=== PATIENT | female | born 1965 | race Two or more races ===

== ENCOUNTER 2020-05-03 14:51 | Emergency (ER) | payer MEDICAID, SELFPAY ==
--- NOTE | 2020-05-03 16:04 | US_ITS ---
EXAMINATION: ULTRASOUND SOFT TISSUES HEAD AND NECK CLINICAL INFORMATION: Lump left side of head just about a year with question of abscess COMPARISON: None TECHNIQUE: A linear transducer was used to examine the area of clinical concern above the left ear FINDINGS: A tiny hypoechoic cyst is seen just above the left ear measuring 2 x 6 x 5 mm in size. There is 3 mm below the skin. No solid mass is seen. This could represent a tiny sebaceous cyst. No surrounding inflammatory changes seen. IMPRESSION: Tiny cyst just above the left ear as described above.
--- NOTE | 2020-05-03 16:16 | ED_ITS ---
HPI - General Adult General Chief complaint: Skin/Abscess/Foreign Body Stated complaint: lump Time Seen by Provider: 05/03/20 16:04 Source: patient Mode of arrival: ambulatory Limitations: no limitations History of Present Illness HPI narrative: 54yoF presenting to the ED c c/o lump/pain to left scalp above the left ear. Denies trauma, fevers, headache, dizziness, changes in vision, CP/SOB, abd pain, urinarty symptoms or any other complaints or concerns at this time. Related Data Allergies Allergy/AdvReac Type Severity Reaction Status Date / Time SEAFOOD Allergy Unknown ITCHY Uncoded 04/09/20 14:58 THROAT seafood sensetivity Allergy Unknown itchy Uncoded 11/14/18 00:00 throat shellfish Allergy Unknown itchy Uncoded 01/30/20 00:00 throat Review of Systems Review of Systems: Constitutional : No Weight loss, No Fever, No Chills, No N ight Sweats, No Fatigue, No Malaise ENT/Mouth : No Hearing loss, No Ear Pain, No Nasal Congestion, No Sinus Pain, No Hoarseness, No sore throat, No Rhinorrhea, No Swallowing Difficulty Eyes: No Eye Pain, No Swelling, No Redness, No Foreign Body, No Discharge, No Vision Changes Cardiovascular : No Chest Pain, No SOB, No Dyspnea on Exertion, No Orthopnea, No Edema, No Palpitations Respiratory : No Cough, No Sputum, No Wheezing, No Smoke Exposure, No Dyspnea Gastrointestinal : No Nausea, No Vomiting, No Diarrhea, No Constipation, No abdominal Pain, No Hematochezia, No Melena Genitourinary : no irregular bleeding, No Dysuria, No Urinary Frequency, No Hematuria, No Urinary Incontinence, No Urgency, No Flank Pain, No Urinary Flow Changes, No Hesitancy Musculoskeletal : No joint pain, No Myalgias, No Joint Swelling Skin : No Skin Lesions, No rash Neuro : No Weakness, No Numbness, No Paresthesias, No Loss of Consciousness, No Dizziness, No Headache Psych : No Anxiety/Panic, No Depression, No SI/HI/AH/VH, No Social Issues, Heme/Lymph: No Bruising, No Bleeding,No Lymphadenopathy Endocrine : No Polyuria, No Polydipsia, No Temperature Intolerance [facility] Past Medical History Attestation statement: The following information was validated with the patient. Medical History Borderline hypothyroidism Diabetic acidosis, type II High cholesterol Social History Social History Alcohol intake: never Smoked in Last 30 Days: No Use of substances other than those prescribed or required for medical reasons: No Advance Directives: No Advance Directives Information Provided: No Physical Exam Vital Signs: Vital Signs: Vital Signs Temp Pulse Resp BP Pulse Ox 05/03/20 16:18 98.7 F 83 16 135/83 99 Body Mass Index 29.6 Const: General: cooperative, healthy appearing, comfortable, no acute distress, well developed, alert, awake and Physically active Nutritional Appearance: average body habitus and well nourished Orientation/consciousness: patient oriented x3 Limitations: no limitations HENMT: Head: Yes normal to inspection, Yes No palpable skull fracture present, Yes normocephalic, Yes atraumatic and Yes scalp tenderness (tender raised area to left scalp above the ear. No streaking ) Ears: hearing grossly normal bilaterally General nose exam: Normal external nose present Face and sinus: Yes normal facial exam Mouth: moist mucous membranes Eyes: General: appearance normal, both eyes and all related structures Visual Candelario: normal visual candelario by confrontation Alignment and Position: alignment normal Periorbital: periorbital findings normal Eyelids: Yes eyelids normal Conjunctivae: conjunctivae normal Sclerae: sclerae normal Pupils: Equal, round and reactive pupils present EOM: EOMs intact bilaterally Neck: Neck: Yes normal visual inspection, Yes full ROM, Yes no lymphadenopathy, Yes no meningeal signs, Yes trachea midline and Yes supple Chest: Chest palpation & inspection: normal inspection of the chest Resp: Effort & Inspection: normal respiratory effort and able to speak in complete sentences Auscultation: clear to auscultation bilaterally, no cr ackles, no rales, no rhonchi and no wheezes Cardio: Rate: regular rate Rhythm: regular rhythm Heart sounds: S1 normal heart sound present and S2 normal heart sound present Peripheral pulses: Peripheral pulses 2+ throughout GI: Inspection: Yes normal to inspection Palpation (GI): Soft to palpation, nontender and No hepatosplenomegaly present Percussion: Yes normal to percussion Auscultation: normal bowel sounds : General: Yes no CVA tenderness Back/Spine/Pelvis: Back: no CVA tenderness Cervical Spine: normal cervical lordosis and cervical ROM normal Thoracic/Lumbar Spine: thoracic and lumbar spine normal to inspection and thoraco-lumbar ROM normal Skin: General skin exam: no rashes or lesions noted, elasticity normal and turgor normal Trauma: no lacerations or abrasions Wounds: no wounds Hair: normal Nails: normal Neuro: General: patient oriented x3 and no meningeal signs Cranial nerves: Yes CN's II-XII intact bilaterally and Yes Equal, round and reactive pupils present Cognition (Neuro): normal cognition Gait exam (Neuro): Normal gait present Motor exam (neuro): 5/5 motor strength present throughout Extrem: General: Yes normal to inspection, Yes full ROM, Yes capillary refill normal, Yes no clubbing, cyanosis or edema, No no pedal edema, No no calf tenderness, Yes normal gait and No edema Right upper extremity: normal to inspection, full ROM and normal capillary refill; no edema Left upper extremity: normal to inspection, full ROM and normal capillary refill; no edema Right lower extremity: normal to inspection, full ROM and normal capillary refill; no edema Left lower extremity: normal to inspection, full ROM and normal capillary refill; no edema Psych: Appearance: grossly normal and well kempt Mental Status: mental status grossly normal Speech and movement: Normal speech and movement present and Clear speech present Affect: normal affect Attitude: cooperative Thought process: Normal thought process present Thought content: Normal thought content present Insight: Good insight present (Psych) Judgement: Good judgement present (Psych) Course Course Course Narrative: 54yoF presenting to the ED c c/o lump/pain to left scalp above the left ear. Denies trauma, fevers, headache, dizziness, changes in vision, CP/SOB, abd pain, urinarty symptoms or any other complaints or concerns at this time. - Concern for cyst vs abscess. - Plan :US of soft tissue to evaluate for possible abscess. Provide symptomatic treatment with naproxen and oxycodone and re-evaluate. Reevaluation(s) Reevaluation #1: Sign out to [facility] pending US of scalp. They just called for patient to be brought to US at this time.
[2020-05-03 16:18] VITALS: BP 135/83; PULSE 83; RESP 16; TEMP 37.1; O2SAT 99; BMI 29.6
[2020-05-03] MEDS: NaPROXEN 500 MG TABLET PO (16:58)
[2020-05-03] MEDS: oxyCODONE HCl Immed Release 5 MG TABLET PO (16:59)
== END 2020-05-03 19:40 | disposition home or self-care (01) ==
PROVIDERS: Emergency Provider Emergency Medicine Emergency Medical Services; PCP Internal Medicine
DX: L72.3 Sebaceous cyst (principal); E11.9 Type 2 diabetes mellitus without complications
CPT/HCPCS: 76536; 99284

== ENCOUNTER 2020-07-08 07:54 | Outpatient (REF) | payer MEDICAID, SELFPAY | END 2020-07-08 07:55 | disposition home or self-care (01) | LOC: HO.LAB 07:54 | PROVIDERS: PCP Internal Medicine; Visit Provider Internal Medicine | DX: Z20.828 Contact with and (suspected) exposure to other viral communicable diseases (principal) | CPT/HCPCS: C9803; U0003 ==

== ENCOUNTER 2020-10-20 09:27 | Outpatient (REF) | payer MEDICAID, SELFPAY ==
[2020-10-20 11:59] LABS: SARS COV2 PCR INHOUSE NEGATIVE (Negative)
== END 2020-10-20 09:28 | disposition home or self-care (01) ==
LOC: HO.LAB 09:27
PROVIDERS: Visit Provider Internal Medicine
DX: Z20.822 Contact with and (suspected) exposure to COVID-19 (principal)
CPT/HCPCS: C9803; U0003

== ENCOUNTER 2021-03-16 18:47 | Emergency (ER) | payer MEDICAID, SELFPAY ==
--- NOTE | ~2021-03-16 | US_ITS ---
EXAMINATION: US VENOUS ULTRASOUND WITH DOPPLER LOWER EXTREMITY, RIGHT CLINICAL INFORMATION: Leg pain. Evaluate for deep vein thrombosis. COMPARISON: None TECHNIQUE: Ultrasound of the deep veins is performed from the hip to the calf with compression sonography and color and pulse Doppler assessment. Spectral analysis with color-flow imaging is performed. FINDINGS: There is normal venous compression and respiratory variation and augmented flow. The visualized common femoral vein, superficial femoral vein, profunda femoral vein, popliteal vein, and the trifurcation region shows no evidence of deep venous thrombosis. There is no significant popliteal fossa cyst. If the patient's symptoms persist, followup ultrasound in 5 days 7 days might be of value to exclude proximal propagation from a non-visualized calf vein. US/US venous duplex LE RT IMPRESSION: No DVT demonstrated in the right lower extremity.
[2021-03-16 19:46] VITALS: BP 124/79; PULSE 89; RESP 18; TEMP 36.8; O2SAT 97; BMI 29.2
--- NOTE | 2021-03-16 20:33 | ED_ITS ---
HPI - General Adult General Chief complaint: General Medical Stated complaint: leg pain Time Seen by Provider: 03/16/21 20:28 Source: patient Mode of arrival: ambulatory Limitations: no limitations History of Present Illness HPI narrative: 55 y/o female with history of diabetes, hypothyroidism, neuropathy who presents to the ER with 2 weeks of worsening, nontraumatic right leg pain. She reports she has intermittent shooting pains down the side of her upper right leg from knee to hip. Worse with palpation, movement as well as when she lays down at night. No weakness, numbness or tingling. She feels like the pain is muscular. Denies injury. She works at a [employer] and is on her feet all day long. She reports the pain started in her right calf muscle 2 weeks ago and is now on her right upper lateral leg and radiates to her right posterior leg. No chest pain, shortness of breath. MD complaint: RLE pain Onset (ago): week(s) (2) Location: right and lower extremity Radiation: extremity Severity: moderate Severity scale (1-10): 6 Quality: aching and sharp Pain Consistency: intermittent Relieving factors: medication and rest Exacerbating factors: movement Associated symptoms: denies other symptoms Treatments prior to arrival: none Related Data Previous Rx's Medication Instructions Recorded cyclobenzaprine 10 mg tablet 10 mg PO TID PRN #12 tab 03/16/21 ibuprofen 600 mg tablet 600 mg PO Q8H PRN #14 tab 03/16/21 lidocaine 5 % topical patch 1 patch TOPICAL DAILY #15 ea 03/16/21 (Lidoderm) Allergies Allergy/AdvReac Type Severity Reaction Status Date / Time SEAFOOD Allergy Unknown ITCHY Uncoded 04/09/20 14:58 THROAT seafood sensetivity Allergy Unknown itchy Uncoded 11/14/18 00:00 throat shellfish Allergy Unknown itchy Uncoded 01/30/20 00:00 throat Review of Systems Constitutional: Constitutional: Denies chills and Denies fever(s) Eyes: Eyes: Reports no additional eye complaints ENT: Reports as per HPI Cardiovascular: Cardiovascular: Denies chest pain and Denies dyspnea Respiratory: Respiratory: Denies dyspnea Gastrointestinal: Gastrointestinal: Denies nausea and Denies vomiting Musculoskeletal: Musculoskeletal: Denies abnormal gait, Denies back pain, Denies arthralgias, Denies joint swelling, Denies numbness and Denies tingling Integumentary/Breasts: Skin/Breast: Denies swelling and Denies erythema Neurologic: Denies abnormal gait, Denies numbness, Denies Sensory deficit (Neuro), Denies tingling and Denies paresthesias Hematologic/Lymphatic: Hematologic/Lymphatic: Denies easy bleeding and Denies easy bruising [facility] Past Medical History Medical History Borderline hypothyroidism Diabetic acidosis, type II High cholesterol Social History Social History Alcohol intake: never Advance Directives: No Advance Directives Information Provided: Yes Patient : No Physical Exam Vital Signs: Vital Signs: Last Vital Signs Temp 98.2 F 03/16/21 19:46 Pulse 89 03/16/21 19:46 Resp 18 03/16/21 19:46 BP 124/79 03/16/21 19:46 Pulse Ox 97 03/16/21 19:46 Body Mass Index 29.2 Const: General: cooperative, healthy appearing, comfortable and no acute distress Nutritional Appearance: average body habitus Orientation/consciousness: patient oriented x3 Limitations: no limitations HENMT: Head: Yes normal to inspection Ears: hearing grossly normal bilaterally General nose exam: Normal external nose present and Normal nares present Face and sinus: Yes normal facial exam and Yes face symmetric Mouth: Normal oral and palatal mucosa present, lip normal and tongue normal Teeth and gingiva: dentition normal and gingiva normal Throat: Yes posterior oropharynx normal Eyes: General: appearance normal, both eyes and all related structures Neck: Neck: Yes normal visual inspection Chest: Chest palpation & inspection: normal inspection of the chest Resp: Effort & Inspection: normal respiratory effort and able to speak in comp lete sentences Cardio: Rate: regular rate Rhythm: regular rhythm Heart sounds: S1 normal heart sound present and S2 normal heart sound present : General: Yes no CVA tenderness Back/Spine/Pelvis: Back: no CVA tenderness Cervical Spine: normal cervical lordosis and cervical ROM normal Thoracic/Lumbar Spine: thoracic and lumbar s pine normal to inspection and thoraco-lumbar ROM normal Pelvis: no pain with anterior-posterior compression Skin: General skin exam: no rashes or lesions noted Neuro: General: patient oriented x3, gait normal, tone normal and moves all extremities Sensory Exam: No Sensory deficit (Neuro) Extrem: General: Yes normal to inspection Right lower extremity: normal to inspection, full ROM, normal capillary refill and hip/thigh Details: normal to inspection, tenderness Location: of the mid upper leg Location: laterally and normal ROM; Negative for no swelling and no unusual warmth; No no edema Left lower extremity: normal to inspection, full ROM and normal capillary refill; No no edema Course Course Course Narrative: 55 y/o female presenting with right leg pain x2 weeks. Given it started in her calf will get LE doppler to r/o DVT. She has soft tissue tenderness lateral upper leg along IT band. No known injury. She reports muscle cramping and shooting pains. Will check basic labs and lytes. Reevaluation(s) Reevaluation #1: LE doppler negative. Labs ok aside from glucose in 300s which she reports is her baseline. She will follow up with her PCP for this. Her leg pain is most likely MSK in nature, strain vs IT band inflammation. Will start NSAID, muscle relaxer and lidoderm. Will have her f/u with PCP. Stable for d/c home. Medical Decision Making Lab Data Result diagrams: 03/16/21 20:45 03/16/21 20:45 Labs: Lab Results 03/16/21 03/16/21 Range/Units 20:45 20:45 WBC 7.5 (4.8-10.8) X10*3/uL RBC 4.04 L (4.20-5.50) X10*6/uL Hgb 12.4 (12.0-16.0) g/dl Hct 35.9 L (37-47) % MCV 88.9 (80-98) fL MCH 30.7 (27.0-33.0) pg MCHC 34.5 (31.0-35.0) g/dl RDW 12.0 (11.0-16.0) % Plt Count 276 (160-400) X10*3/uL MPV 10.4 (9.4-12.3) fL Immature Gran % (Auto) 0.3 (0.0-0.4) % Neut % (Auto) 46.1 (45-73) % Lymph % (Auto) 45.2 H (20-40) % Independence % (Auto) 5.7 (2-11) % Eos % (Auto) 2.0 (0-4) % Baso % (Auto) 0.7 (0-2) % Lymph # (Auto) 3.4 (1.2-4.9) X10*3/uL Independence # (Auto) 0.4 (0.1-1.2) X10*3/uL Eos # (Auto) 0.2 (0.0-0.4) X10*3/uL Baso # (Auto) 0.1 (0.0-0.2) X10*3/uL Abs Immat Gran (auto) 0.02 (0.00-0.03) X10*3/uL Absolute Neuts (auto) 3.5 (2.0-8.3) X10*3/uL Absolute Nucleated RBC 0.000 (0.0-0.012) X10*3/uL Nucleated RBC % (auto) 0.0 (0.0-0.2) /100WBC Sodium 139 (135-145) mmol/L Potassium 4.1 (3.3-5.1) mmol/L Chloride 105 (96-108) mmol/L Carbon Dioxide 25 (22-29) mmol/L Anion Gap 13 (12-20) BUN 13 (9-16) mg/dL Creatinine 1.12 (0.5-1.4) mg/dL Estim Creat Clear Calc 50.8 Estimated GFR 51 Random Glucose 366 H* (60-115) mg/dL Calcium 9.2 (8.4-10.2) mg/dL Magnesium 1.9 (1.6-2.6) mg/dL Critical Care Time Critical Care Time Critical Care Time: No Discharge Plan Discharge Clinical Impression: Leg pain Qualifiers: Laterality: right Qualified Code(s): M79.604 - Pain in right leg Patient Disposition: Home, Self-Care Instructions: Leg Pain (ED), Iliotibial Band Syndrome (ED) Additional Instructions: Your lab workup showed no significant electrolyte abnormalities. Your blood sugar was elevated in the 300's. Your ultrasound was negative for blood clot. Your pain may be due to inflammation and irritation of your IT band. Recommend gentle massage. Use ice several times per day for 20 minutes at a time for the next 48 hours and then change to heat. Take medications as prescribed to help with pain and discomfort. Follow up with your Primary Care Doctor this week. You may benefit from physical therapy. If your pain worsens, if you develop new numbness, tingling, weakness, or any other concerning symptoms come back to the ER right away for evaluation. Prescriptions: New cyclobenzaprine 10 mg tablet 10 mg PO TID PRN (Reason: muscle spasm) Qty: 12 RF: 0 lidocaine [Lidoderm] 5 % adhesive patch,medicated 1 patch topical DAILY Qty: 15 RF: 0 ibuprofen 600 mg tablet 600 mg PO Q8H PRN (Reason: pain) Qty: 14 RF: 0 Stand Alone Forms: Work/School Release Interventions: ED Discharge Assessment Last Done: 03/16/21 22:44 Discharge Date/Time: 03/16/21 22:56
[2021-03-16 20:51] LABS: MANUAL DIFF FLAG NO
[2021-03-16 20:53] LABS: Basophils Absolute Auto 0.1 X10*3/uL (0.0-0.2); Basophils Percent Auto 0.7 % (0-2); Eosinophils Absolute Auto 0.2 X10*3/uL (0.0-0.4); Hematocrit 35.9 % (37-47); Hemoglobin 12.4 g/dl (12.0-16.0); Imm Gran Abs Auto 0.02 X10*3/uL (0.00-0.03); Imm Gran Pct Auto 0.3 % (0.0-0.4); Lymphocytes Absolute Auto 3.4 X10*3/uL (1.2-4.9); Lymphocytes Percent Auto 45.2 % (20-40); Mean Corpuscular HGB Conc 34.5 g/dl (31.0-35.0); Mean Corpuscular Hemoglobin 30.7 pg (27.0-33.0); Mean Corpuscular Volume 88.9 fL (80-98); Mean Platelet Volume 10.4 fL (9.4-12.3); Monocytes Absolute Auto 0.4 X10*3/uL (0.1-1.2); Monocytes Percent Auto 5.7 % (2-11); Neutrophils Absolute Auto 3.5 X10*3/uL (2.0-8.3); Neutrophils Percent Auto 46.1 % (45-73); Platelet Count 276 X10*3/uL (160-400); Red Blood Count 4.04 X10*6/uL (4.20-5.50); White Blood Count 7.5 X10*3/uL (4.8-10.8)
[2021-03-16 21:24] LABS: Anion Gap 13 (12-20); Blood Urea Nitrogen 13 mg/dL (9-16); Calcium 9.2 mg/dL (8.4-10.2); Carbon Dioxide 25 mmol/L (22-29); Chloride 105 mmol/L (96-108); Creatinine Clr Calc Pharmacy 50.8; Estimated Glomerular Filt Rate 51; Glucose Random 366 mg/dL (60-115); Magnesium 1.9 mg/dL (1.6-2.6); Potassium 4.1 mmol/L (3.3-5.1); Sodium 139 mmol/L (135-145)
== END 2021-03-16 22:56 | disposition home or self-care (01) ==
PROVIDERS: Physician Assistant; Emergency Provider Emergency Medicine; PCP Internal Medicine
DX: M79.604 Pain in right leg (principal); E11.9 Type 2 diabetes mellitus without complications
CPT/HCPCS: 36415; 80048; 83735; 85025; 93971; 99283; 99284

== ENCOUNTER 2021-04-02 12:40 | Emergency (ER) | payer MEDICAID, SELFPAY ==
[2021-04-02 13:03] VITALS: BP 153/81; PULSE 96; RESP 16; TEMP 36.9; O2SAT 98; BMI 29.2
--- NOTE | 2021-04-02 13:44 | ED.URI ---
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 No fevers, no vomiting or diarrhea, no headache. No cough. Patient is vaccinated for COVID. She is concerned because her sister who she lives with is immunocompromised. MD elicited complaint: sore throat, nasal congestion and sinus pain Onset (ago): day(s) (1) Consistency: constant Severity: mild Able to tolerate fluids by mouth: Yes Exacerbating factors: nothing Relieving factors: OTC cold medicine Associated symptoms: chills, myalgias, nasal congestion and sore throat (scratchy throat) Treatments prior to arrival: none Related Data Previous Rx's Medication Instructions Recorded cyclobenzaprine 10 mg tablet 10 mg PO TID PRN #12 tab 03/16/21 ibuprofen 600 mg tablet 600 mg PO Q8H PRN #14 tab 03/16/21 lidocaine 5 % topical patch 1 patch TOPICAL DAILY #15 ea 03/16/21 (Lidoderm) Allergies Allergy/AdvReac Type Severity Reaction Status Date / Time SEAFOOD Allergy Unknown ITCHY Uncoded 04/09/20 14:58 THROAT seafood sensetivity Allergy Unknown itchy Uncoded 11/14/18 00:00 throat shellfish Allergy Unknown itchy Uncoded 01/30/20 00:00 throat Review of Systems Constitutional: Constitutional: Reports body ache(s), Reports chills, Reports fatigue, Denies fever(s), Denies headache(s) and Reports malaise Eyes: Eyes: Denies blurry vision, Denies diplopia and Denies eye pain ENT: Denies otalgia, Denies headache(s), Reports nasal congestion, Reports sinus pain, Reports sinus pressure and Reports sore throat Comments: Scratchy throat, can not tolerate fluids, throat is not sore more itchy Cardiovascular: Cardiovascular: Denies chest pain, Denies lightheadedness and Denies dyspnea Respiratory: Respiratory: Denies chest congestion, Denies cough and Denies dyspnea Gastrointestinal: Gastrointestinal: Denies abdominal pain, Denies diarrhea, Denies nausea and Denies vomiting Musculoskeletal: Musculoskeletal: Reports myalgias Integumentary/Breasts: Skin/Breast: Denies erythema and Denies rash Neurologic: Denies headache(s) and Denies focal weakness Endocrine: Endocrine: Reports fatigue PMFSH Past Medical History Medical History Borderline hypothyroidism Diabetic acidosis, type II High cholesterol Social History Social History Alcohol intake: never Advance Directives: No Advance Directives Information Provided: No Physical Exam Vital Signs: Vital Signs: Last Vital Signs Temp 98.4 F 04/02/21 13:03 Pulse 96 04/02/21 13:03 Resp 16 04/02/21 13:03 BP 153/81 H 04/02/21 13:03 Pulse Ox 98 04/02/21 13:03 Body Mass Index 29.2 Const: General: cooperative, healthy appearing, comfortable, no acute distress, well developed, alert and awake Nutritional Appearance: average body habitus Orientation/consciousness: patient oriented x3 Limitations: no limitations HENMT: Head: Yes normal to inspection, Yes normocephalic and Yes atraumatic Ears: hearing grossly normal bilaterally, external ears normal, TM's normal bilaterally and EAC's normal General nose exam: Normal external nose present Face and sinus: Yes normal facial exam and Yes sinuses nontender Mouth: Normal oral and palatal mucosa present and moist mucous membranes Throat: Yes postnasal drainage Eyes: Pupils: Equal, round and reactive pupils present EOM: EOMs intact bilaterally Neck: Neck: Yes full ROM, Yes no lymphadenopathy, Yes no meningeal signs, Yes trachea midline and Yes supple Resp: Effort & Inspection: normal respiratory effort and able to speak in complete sentences Auscultation: clear to auscultation bilaterally, no crackles, no rales, no rhonchi and no wheezes Cardio: Rate: regular rate Rhythm: regular rhythm Heart sounds: S1 normal heart sound present and S2 normal heart sound present Skin: General skin exam: no rashes or lesions noted Neuro: General: patient oriented x3 and no meningeal signs Cranial nerves: Yes Equal, round and reactive pupils present Extrem: General: Yes normal to inspection and Yes full ROM Course Course Course Narrative: 55-year-old female with 1 day fatigue, body aches, chills, scratchy throat, and sinus pain and pressure. Patient is concerned that she may have COVID despite being vaccinated. She lives with her sister who is immunocompromised. On exam, patient has stable vitals, oropharynx is benign except for postnasal drip, patient's lungs are clear to auscultation bilaterally. Will test for COVID, give Toradol for body aches, if COVID is negative, will counseled patient to stay out of work for 3 days until she is feeling better. MDM - URI/Sore Throat Lab Data Labs: Lab Results 04/02/21 Range/Units 13:51 COVID-19 ([facility]) Negative (Negative) COVID-19 Clin Com See Note Discharge Plan Discharge Clinical Impression: Upper respiratory infection Qualifiers: URI type: unspecified viral URI Qualified Code(s): J06.9 - Acute upper respiratory infection, unspecified Patient Disposition: Home, Self-Care Instructions: Upper Respiratory Infection (ED) Additional Instructions: Please go home, rest, drink plenty of fluids, you may gargle with salt water. Place 1 tsp of salt in a couple of warm water and gargle 4 times a day, this may help with a scratchy throat. Alternate Tylenol and ibuprofen. I would like you to stay out of work for few days so you can rest. Prescriptions: No Action cyclobenzaprine 10 mg tablet 10 mg PO TID PRN (Reason: muscle spasm) Qty: 12 RF: 0 lidocaine [Lidoderm] 5 % adhesive patch,medicated 1 patch topical DAILY Qty: 15 RF: 0 ibuprofen 600 mg tablet 600 mg PO Q8H PRN (Reason: pain) Qty: 14 RF: 0 Stand Alone Forms: Work/School Release
[2021-04-02] MEDS: Ketorolac Tromethamine 15 MG/ML VIAL 30 MG IM (14:06)
[2021-04-02 14:12] LABS: COVID-19 Test Negative (Negative); IDNOW Serial# 08D9AD1C
== END 2021-04-02 14:26 | disposition home or self-care (01) ==
PROVIDERS: Physician Assistant; Emergency Provider Emergency Medicine; PCP Internal Medicine
DX: J06.9 Acute upper respiratory infection, unspecified (principal); M79.10 Myalgia, unspecified site; R09.81 Nasal congestion; Z20.822 Contact with and (suspected) exposure to COVID-19; Z79.899 Other long term (current) drug therapy
CPT/HCPCS: 36415; 87635; 96372; 99284; J1885

== ENCOUNTER 2021-04-20 08:30 | Outpatient (REF) | payer MEDICAID, SELFPAY ==
[2021-04-20 09:03] LABS: Basophils Percent Auto 0.6 % (0-2); Eosinophils Absolute Auto 0.1 X10*3/uL (0.0-0.4); Eosinophils Percent Auto 1.9 % (0-4); Hematocrit 39.2 % (37-47); Hemoglobin 13.5 g/dl (12.0-16.0); Imm Gran Abs Auto 0.03 X10*3/uL (0.00-0.03); Imm Gran Pct Auto 0.4 % (0.0-0.4); Lymphocytes Absolute Auto 2.9 X10*3/uL (1.2-4.9); Lymphocytes Percent Auto 42.5 % (20-40); MANUAL DIFF FLAG NO; Mean Corpuscular HGB Conc 34.4 g/dl (31.0-35.0); Mean Corpuscular Hemoglobin 30.6 pg (27.0-33.0); Mean Corpuscular Volume 88.9 fL (80-98); Mean Platelet Volume 10.2 fL (9.4-12.3); Monocytes Absolute Auto 0.4 X10*3/uL (0.1-1.2); Monocytes Percent Auto 6.5 % (2-11); Neutrophils Absolute Auto 3.3 X10*3/uL (2.0-8.3); Neutrophils Percent Auto 48.1 % (45-73); Platelet Count 309 X10*3/uL (160-400); Red Blood Count 4.41 X10*6/uL (4.20-5.50); White Blood Count 6.8 X10*3/uL (4.8-10.8)
[2021-04-20 09:33] LABS: Alanine Aminotransferase 34 U/L (0-31); Albumin Level 3.9 g/dL (3.5-5.0); Alkaline Phosphatase 85 U/L (39-117); Anion Gap 10 (12-20); Aspartate Amino Transferase 34 U/L (5-31); Bilirubin Total 0.8 mg/dL (0.0-1.0); Blood Urea Nitrogen 12 mg/dL (9-16); C Reactive Protein 0.69 mg/dL (< or = 0.50); Calcium 9.6 mg/dL (8.4-10.2); Carbon Dioxide 28 mmol/L (22-29); Chloride 105 mmol/L (96-108); Cholesterol 250 mg/dL; Estimated Glomerular Filt Rate > 60; Glucose Fasting 242 mg/dL (60-99); HDL Cholesterol 38 mg/dL; LDL Cholesterol Calculated 168 mg/dl; Potassium 4.4 mmol/L (3.3-5.1); Sodium 139 mmol/L (135-145); Total Protein 7.1 g/dL (6.5-8.0); Triglycerides 221 mg/dL
[2021-04-20 09:53] LABS: Estimated Average Glucose 258 mg/dL; Hemoglobin A1c % 10.6 %
[2021-04-20 09:54] LABS: Free T4 (Free Thyroxine) 1.21 ng/dL (0.71-1.85)
[2021-04-20 10:28] LABS: Creatinine Urine 113.89 mg/dL; Microalbum/Creatinine Ratio Ur 5.2 ug/mg cr
== END 2021-04-20 08:31 | disposition home or self-care (01) ==
LOC: HO.LAB 08:30
PROVIDERS: PCP Internal Medicine; Visit Provider Internal Medicine
DX: E78.00 Pure hypercholesterolemia, unspecified (principal); E11.9 Type 2 diabetes mellitus without complications; R53.83 Other fatigue; E03.9 Hypothyroidism, unspecified
CPT/HCPCS: 36415; 80053; 80061; 82043; 82306; 83036; 84439; 84443; 85025; 86140

== ENCOUNTER 2021-05-11 13:05 | Outpatient (REF) | payer MEDICAID, SELFPAY ==
--- NOTE | ~2021-05-11 | MM_ITS ---
EXAMINATION: MM SCREENING DIGITAL BREAST TOMOSYNTHESIS, BILATERAL CLINICAL INFORMATION: Screening. Asymptomatic. The lifetime risk of breast cancer based on the Tyrer-Cuzick Model is 23%. COMPARISON: Mammography: 10/19/2018, 01/16/2017, 11/16/2015 TECHNIQUE: Digital breast tomosynthesis is performed in both the craniocaudal and mediolateral oblique views along with computer-aided detection (CAD). Synthesized 2D images are generated from the tomosynthesis. FINDINGS: There are scattered areas of fibroglandular density (ACR BI-RADS breast composition Category b). There are no significant masses, abnormal calcifications, or other abnormalities. Parenchymal pattern is similar to prior studies. No developing density. The axilla and skin contours are unremarkable. No significant changes. MM/MM tomosynthesis screening BI IMPRESSION: No mammographic evidence of malignancy. ASSESSMENT: BI-RADS 2: Benign RECOMMENDATION: Routine annual mammography screening. This patient's information was entered into a reminder system with a target due date for their next mammogram.
--- NOTE | ~2021-05-11 | MM_ITS ---
EXAMINATION: BONE DENSITOMETRY CLINICAL INDICATION: Encounter for screening for osteoporosis. COMPARISON: None (current study represents initial baseline exam). TECHNIQUE: Using a [employer] DXA System (software version: 13.1) manufactured by [employer], dual-energy x-ray absorptiometry was performed of the lumbar spine and left hip. The images are of good technical quality. Summary results are attached. FINDINGS: AP SPINE L1-L3 (excluding L4): The data of L1-L4 has been changed to exclude the L4 vertebral body, because degenerative changes at this level may cause overestimation of lumbar spine density. BMD 1.142 g/cm2, Z-score 0.5, T-score -0.2, normal. LEFT FEMUR, NECK: BMD 0.937 g/cm2, Z-score 0.2, T-score -0.7, normal. LEFT FEMUR, TOTAL: BMD 1.069 g/cm2, Z-score 1.1, T-score 0.5, normal. IDENTIFIED RISK FACTORS: Menopause. HISTORY OF FRACTURE: None listed. MEDICATIONS: None listed. MM/XR DEXA axial skeleton IMPRESSION: 1. DIAGNOSIS: Normal bone density based on the lowest T-score value of -0.7 in the femoral neck applying World Health Organization criteria. 2. 10-YEAR FRACTURE RISK PREDICTION, FRAX: According to the guidelines, FRAX calculation should only be performed on patients in the osteopenia bone density category. Therefore, FRAX was not performed on this patient. 3. Treatment Recommendations: NOF guidelines recommend consideration for treatment in postmenopausal women and men age 50 and older presenting with the following: -A hip or vertebral (clinical or morphometric) fracture. -T-score less than or equal to -2.5 at the femoral neck or spine after appropriate evaluation to exclude secondary causes. -Low bone mass at the hip or spine and a 10-year fracture probability by FRAX of greater than or equal to 3% for hip fracture or greater than or equal to 20% for major osteoporotic fracture based on the [place] adapted WHO algorithm. 4. Other Recommendations: All treatment decisions require clinical judgment and consideration of individual patient factors, including patient preferences, comorbidities, previous drug use, risk factors not captured in the FRAX model (e.g. frailty, falls, vitamin D deficiency, increased bone turnover, interval significant decline in bone density) and possible under or overestimation of fracture risk by FRAX. FUTURE SCAN RECOMMENDATION: People with diagnosed cases of osteoporosis or at high risk for fracture should have regular bone mineral density tests. For patients eligible for Medicare, routine testing is allowed once every 2 years. The testing frequency can be increased to one year for patients who have rapidly progressing disease, those who are receiving or discontinuing medical therapy to restore bone mass, or have additional risk factors.
== END 2021-05-11 13:06 | disposition home or self-care (01) ==
LOC: HO.MAMMO 13:05
PROVIDERS: PCP Internal Medicine; Visit Provider Internal Medicine
DX: Z12.31 Encounter for screening mammogram for malignant neoplasm of breast (principal); Z13.820 Encounter for screening for osteoporosis; Z78.0 Asymptomatic menopausal state
CPT/HCPCS: 77063; 77067; 77080

== ENCOUNTER 2021-07-09 15:06 | Outpatient (REF) | payer MEDICAID, SELFPAY ==
--- NOTE | ~2021-07-09 | XR_ITS ---
EXAMINATION: XR LUMBOSACRAL SPINE CLINICAL INFORMATION: Right leg and back pain COMPARISON: None TECHNIQUE: Three views of the lumbosacral spine. FINDINGS: Bone alignment is normal. No fracture or dislocation is seen. There is degenerative disc disease at L4-L5 and L5-S1. There is lower lumbar spine facet arthritis. There is atherosclerotic disease. XR/XR lumbar spine 2-3V IMPRESSION: Degenerative changes.
== END 2021-07-09 15:07 | disposition home or self-care (01) ==
LOC: HO.XRAY 15:06
PROVIDERS: PCP Internal Medicine; Visit Provider Internal Medicine
DX: M54.50 Low back pain, unspecified (principal); M79.604 Pain in right leg
CPT/HCPCS: 72100

== ENCOUNTER 2021-07-21 08:20 | Emergency (ER) | payer MEDICAID, SELFPAY ==
--- NOTE | ~2021-07-21 | XR_ITS ---
EXAMINATION: XR CHEST CLINICAL INFORMATION: Cough COMPARISON: None TECHNIQUE: Frontal view of the chest was obtained. FINDINGS: No significant abnormality is noted involving the heart, lungs, mediastinum, bony thorax or soft tissues. XR/XR chest 1V IMPRESSION: Unremarkable examination.
[2021-07-21 08:48] VITALS: BP 117/78; PULSE 115; RESP 19; TEMP 36.1; O2SAT 97; BMI 21.7
[2021-07-21 10:14] LABS: COVID-19 Test Positive (Negative); IDNOW Serial# 9DD0AD1C
--- NOTE | 2021-07-21 10:25 | ED.URI ---
HPI - URI/Sore Throat General Chief Complaint: Upper Respiratory Symptoms Stated Complaint: cough fever body aches Time Seen by Provider: 07/21/21 09:28 Source: patient Mode of arrival: ambulatory Limitations: no limitations History of Present Illness HPI Narrative: 56-year-old female presenting to the ER with body aches, headache, dry cough that started yesterday. She is fully vaccinated for COVID-19. She was around her cousin's son who had of ?cold? but was never tested for COVID. She did have a small gathering for [employer] but known at the time had any signs or symptoms of illness. She denies any shortness of breath or chest pain. She just feels unwell and tired. She denies any high fevers at home, her fevers have been low grade and she has been taking Tylenol for them with good effect. MD elicited complaint: cough and other (Body aches) Onset (ago): day(s) (1) Consistency: constant Description of mucous: clear Able to tolerate fluids by mouth: Yes Exacerbating factors: exertion Relieving factors: nothing Context: sick contacts Associated symptoms: chills, myalgias, headache, nasal congestion and cough Treatments prior to arrival: none Related Data Previous Rx's Medication Instructions Recorded cyclobenzaprine 10 mg tablet 10 mg PO TID PRN #12 tab 03/16/21 ibuprofen 600 mg tablet 600 mg PO Q8H PRN #14 tab 03/16/21 lidocaine 5 % topical patch 1 patch TOPICAL DAILY #15 ea 03/16/21 (Lidoderm) Allergies Allergy/AdvReac Type Severity Reaction Status Date / Time SEAFOOD Allergy Unknown ITCHY Uncoded 04/09/20 14:58 THROAT seafood sensetivity Allergy Unknown itchy Uncoded 11/14/18 00:00 throat shellfish Allergy Unknown itchy Uncoded 01/30/20 00:00 throat Review of Systems Review of Systems: Constitutional: No Fever, + Chills ENT/Mouth: No sore throat, No Rhinorrhea, No Swallowing Difficulty Eyes: No Eye Pain, No Swelling, No Redness Cardiovascular: No Chest Pain, No SOB, No Orthopnea, No Edema Respiratory: + Cough, No Sputum, No Wheezing, No dyspnea Gastrointestinal: No Nausea, No Vomiting, No Diarrhea, No abdominal Pain Genitourinary: No Dysuria, No Urinary Frequency, No Hematuria Musculoskeletal: + joint pain, + Myalgias Skin: No Skin Lesions, No rash Neuro: No Weakness, No Numbness, No Dizziness, + Headache Psych: + Anxiety/Panic Heme/Lymph: No Lymphadenopathy PMFSH Past Medical History Medical History Borderline hypothyroidism Diabetic acidosis, type II High cholesterol Social History Social History Alcohol intake: never Advance Directives: No Advance Directives Information Provided: No Patient : No Physical Exam Vital Signs: Vital Signs: Last Vital Signs Temp 97 F 07/21/21 08:48 Pulse 115 H 07/21/21 08:48 Resp 19 07/21/21 08:48 BP 117/78 07/21/21 08:48 Pulse Ox 97 07/21/21 08:48 BMI result Body Mass Index 21.7 Appearance: Alert. Oriented X3. Sitting up in the recliner with the winter hat on and a blanket wrapped around her. Eyes: Pupils equal, round and reactive to light. ENT: Pharynx normal. Neck: Normal inspection. Neck supple. CVS: Normal heart rate and rhythm. Pulses normal. Respiratory: No respiratory distress. Breath sounds normal. Skin: Skin warm and dry. Normal skin color. Normal skin turgor. No rashes. Extremities: No lower extremity edema. No calf tenderness. Neuro: Oriented X 3. No motor deficit. No sensory deficit. Course Course Course Narrative: 56-year-old female presents the ER with dry cough, body aches, headache in the setting of a recent sick exposure. She is fully vaccinated for COVID-19. She is slightly tachycardic on triage, improved upon exam - HR 90's. No SOB or chest pain, she is in no distress. Will get CXR and COVID swab. Reevaluation(s) Reevaluation #1: Chest x-ray is clear. patient COVID positive. Patient counseled on diagnosis, management warning signs to come back to the ER for further evaluation. She is stable for discharge home to self quarantine. Supportive care discussed. Stable for DC. MDM - URI/Sore Throat Lab Data Labs: Lab Results 07/21/21 Range/Units 09:55 COVID-19 ([facility]) Positive A (Negative) COVID-19 Clin Com See Note Critical Care Time Critical Care Time Critical Care Time: No Discharge Plan Discharge Clinical Impression: COVID-19 Patient Disposition: Home, Self-Care Instructions: Covid-19 Viral Syndrome and Novel Coronavirus (ED) Hey/Ath Additional Instructions: You were found to be COVID-19 POSITIVE today. Your chest x-ray and oxygen levels were normal. Rest. Drink plenty of fluids. Do not go out in public for the next 10 days. Take over the counter cold/flu medications as needed for your symptoms. Take Tylenol and/or Motrin as needed for fevers and body aches. Follow up with your doctor this week. If you shortness of breath worsens , if you develop difficulty breathing or any other concerning symptom come back to the ER for further evaluation. Prescriptions: No Action cyclobenzaprine 10 mg tablet 10 mg PO TID PRN (Reason: muscle spasm) Qty: 12 RF: 0 lidocaine [Lidoderm] 5 % adhesive patch,medicated 1 patch topical DAILY Qty: 15 RF: 0 ibuprofen 600 mg tablet 600 mg PO Q8H PRN (Reason: pain) Qty: 14 RF: 0
== END 2021-07-21 10:40 | disposition home or self-care (01) ==
PROVIDERS: Physician Assistant; Emergency Provider Emergency Medicine; PCP Internal Medicine
DX: U07.1 COVID-19 (principal); E11.9 Type 2 diabetes mellitus without complications; E78.5 Hyperlipidemia, unspecified
CPT/HCPCS: 36415; 71045; 87635; 99283

== ENCOUNTER 2021-08-02 10:29 | Outpatient (REF) | payer MEDICAID, SELFPAY ==
[2021-08-02 10:55] LABS: COVID-19 Test Negative (Negative)
== END 2021-08-02 10:30 | disposition home or self-care (01) ==
LOC: HO.LNP 10:29
PROVIDERS: Visit Provider Internal Medicine
DX: Z20.822 Contact with and (suspected) exposure to COVID-19 (principal)
CPT/HCPCS: 87635

== ENCOUNTER 2021-08-19 15:45 | Emergency (ER) | payer MEDICAID, SELFPAY ==
--- NOTE | ~2021-08-19 | XR_ITS ---
EXAMINATION: XR CHEST CLINICAL INFORMATION: Chest pain COMPARISON: Chest radiographs 07/21/2021, 07/18/2017 TECHNIQUE: PA and lateral views of the chest was obtained. FINDINGS: Lungs clear. No pneumothorax, pleural reaction, infiltrate, or effusion. Heart size normal. Vascularity normal. Costophrenic sulci are clear. The hilar and mediastinal contours are unremarkable. No visible acute bony abnormality. XR/XR chest 1V IMPRESSION: Unremarkable examination.
[2021-08-19 16:01] VITALS: BP 129/85; PULSE 95; RESP 18; TEMP 35.7; O2SAT 100; BMI 31.5
--- NOTE | 2021-08-19 16:04 | ECG_ITS ---
Test Reason : WEAKNESS Blood Pressure : / mmHG Vent. Rate : 089 BPM Atrial Rate : 089 BPM P-R Int : 146 ms QRS Dur : 072 ms QT Int : 370 ms P-R-T Axes : 051 077 036 degrees QTc Int : 450 ms Normal sinus rhythm Normal ECG When compared with ECG of 18-JUL-2017 10:49, No significant change was found Referred By: Generic ED Physician Electronically Signed By:ACE HARLEY MD
[2021-08-19 16:24] LABS: MANUAL DIFF FLAG NO
[2021-08-19 16:26] LABS: Basophils Absolute Auto 0.1 X10*3/uL (0.0-0.2); Basophils Percent Auto 0.6 % (0-2); Eosinophils Absolute Auto 0.1 X10*3/uL (0.0-0.4); Eosinophils Percent Auto 1.6 % (0-4); Hemoglobin 12.6 g/dl (12.0-16.0); Imm Gran Abs Auto 0.03 X10*3/uL (0.00-0.03); Imm Gran Pct Auto 0.4 % (0.0-0.4); Lymphocytes Absolute Auto 3.3 X10*3/uL (1.2-4.9); Lymphocytes Percent Auto 39.6 % (20-40); Mean Corpuscular HGB Conc 34.1 g/dl (31.0-35.0); Mean Corpuscular Hemoglobin 30.7 pg (27.0-33.0); Mean Corpuscular Volume 90.2 fL (80.0-98.0); Mean Platelet Volume 10.5 fL (9.4-12.3); Monocytes Absolute Auto 0.5 X10*3/uL (0.1-1.2); Monocytes Percent Auto 6.5 % (2-11); Neutrophils Absolute Auto 4.3 x10*3/uL (2.0-8.3); Neutrophils Percent Auto 51.3 % (45-73); Platelet Count 281 X10*3/uL (160-400); Red Cell Distribution Width 12.1 % (11.0-16.0); White Blood Count 8.4 X10*3/uL (4.8-10.8)
[2021-08-19 16:45] LABS: Alanine Aminotransferase 32 U/L (0-31); Albumin Level 3.9 g/dL (3.5-5.0); Alkaline Phosphatase 78 U/L (39-117); Anion Gap 12 (12-20); Aspartate Amino Transferase 31 U/L (5-31); Bilirubin Total 0.5 mg/dL (0.0-1.0); Blood Urea Nitrogen 12 mg/dL (9-16); Calcium 9.8 mg/dL (8.4-10.2); Carbon Dioxide 26 mmol/L (22-29); Chloride 102 mmol/L (96-108); Creatinine Clr Calc Pharmacy 52.7; Estimated Glomerular Filt Rate 56; Glucose Random 229 mg/dL (60-115); Potassium 3.8 mmol/L (3.3-5.1); Sodium 136 mmol/L (135-145); Total Protein 7.3 g/dL (6.5-8.0)
[2021-08-19 16:48] LABS: Troponin-I High Sensitivity 6.3 ng/L (<3.5-17.0)
--- NOTE | 2021-08-19 17:59 | ED_ITS ---
HPI - Extremity Problem General Chief complaint: Extremity Injury, Upper Stated complaint: R side arm pain nausea SOB Time Seen by Provider: 08/19/21 17:59 Source: patient Mode of arrival: ambulatory Limitations: no limitations History of Present Illness HPI Narrative: Patient is a 56 year old female presenting to the emergency department today with right arm pain. Patient states that she has been having right-sided arm pain for the last few days. 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 Patient denies any dizziness, lightheadedness, abdominal pain, nausea, vomiting, fever, chills, blurry vision, double vision, loss of vision, chest pain, difficulty breathing, shortness of breath, back pain, night sweats, pain with urination, increased urinary frequency, increased urinary urgency, blood in her urine or stool, syncope or a near syncopal episode, recent trauma or falls, bowel incontinence, bladder incontinence, bowel retention, bladder retention, or any other complaints at this time. MD Complaint: extremity pain Onset (ago): day(s) Pain Consistency: intermittent Location: right Quality: dull Radiation: none Relieving factors: nothing Exacerbating factors: range of motion Associated symptoms: denies other symptoms Related Data Previous Rx's Medication Instructions Recorded cyclobenzaprine 10 mg tablet 10 mg PO TID PRN #12 tab 03/16/21 ibuprofen 600 mg tablet 600 mg PO Q8H PRN #14 tab 03/16/21 lidocaine 5 % topical patch 1 patch TOPICAL DAILY #15 ea 03/16/21 (Lidoderm) Allergies Allergy/AdvReac Type Severity Reaction Status Date / Time SEAFOOD Allergy Unknown ITCHY Uncoded 08/19/21 16:01 THROAT seafood sensetivity Allergy Unknown itchy Uncoded 08/19/21 16:01 throat shellfish Allergy Unknown itchy Uncoded 08/19/21 16:01 throat Review of Systems Verdana 4l Constitutional: Verdana 4d Constitutional: Verdana 4d Verdana 4d Reports no additional constitutional complaints, Denies chills, Denies fever(s) and Denies night sweats Verdana 4l Eyes: Verdana 4d Verdana 4d Eyes: Verdana 4d Reports no additional eye complaints, Denies blurry vision, Denies change in vision, Denies diplopia, Denies eye discharge, Denies loss of vision and Denies eye pain Verdana 4l ENT: Verdana 4d Denies dizziness Verdana 4l Cardiovascular: Verdana 4d Cardiovascular: Verdana 4d Verdana 4d Reports no additional cardiovascular complaints, Denies chest pain, Denies lightheadedness, Denies Loss of Consciousness and Denies dyspnea Verdana 4l Respiratory: Verdana 4d Verdana 4d Respiratory: Verdana 4d Reports no additional respiratory complaints and Denies dyspnea Verdana 4l Gastrointestinal: Verdana 4d Gastrointestinal: Verdana 4d Verdana 4d Reports no additional gastrointestinal complaints, Denies abdominal pain, Denies melena, Denies hematochezia, Denies change in bowel habits and Denies change in stool character Verdana 4l Genitourinary: Verdana 4d Verdana 4d Genitourinary: Verdana 4d Denies hematuria, Denies urinary frequency, Denies dysuria, Denies urinary incontinence, Denies urinary hesitancy and Denies urinary urgency Verdana 4l Musculoskeletal: Verdana 4d Musculoskeletal: Verdana 4d Verdana 4d Reports no additional musculoskeletal complaints, Denies numbness, Denies tingling and Reports other (Right arm pain) Verdana 4l Neurologic: Verdana 4d Denies dizziness, Denies loss of vision, Denies numbness and Denies tingling Verdana 4l Psychiatric: Verdana 4d Verdana 4d Psychiatric: Verdana 4d Reports no additional psychiatric complaints Verdana 4l Endocrine: Verdana 4d Verdana 4d Endocrine: Verdana 4d Reports no additional endocrine complaints Verdana 4l Hematologic/Lymphatic: Verdana 4d Hematologic/Lymphatic: Verdana 4d Verdana 4d Reports no additional hematologic/lymphatic complaints Verdana 4l Allergic/Immunologic: Verdana 4d Allergic/Immunologic: Verdana 4d Verdana 4d Reports no additional allergic/immunologic complaints PMFSH Past Medical History Attestation statement: The following information was validated with the patient. Source: unable to obtain Medical History Borderline hypothyroidism Diabetic acidosis, type II High cholesterol Social History Social History Alcohol intake: never Advance Directives: No Advance Directives Information Provided: No Physical Exam Verdana 4l Vital Signs: Verdana 4d Verdana 4d Vital Signs: Verdana 4d Verdana 4Bd Last Vital Signs Verdana 4d Sales Marketing Coordinator New 4d Sales Marketing Coordinator New 4d Temp 96.3 F L 08/19/21 16:01 Sales Marketing Coordinator New 4d Pulse 84 08/19/21 19:13 Sales Marketing Coordinator New 4d Resp 18 08/19/21 19:13 BP 137/87 08/19/21 19:13 Pulse Ox 99 08/19/21 19:13 BMI result Body Mass Index 31.5 Const: General: cooperative, no acute distress, alert and awake Nutritional Appearance: well nourished Orientation/consciousness: patient oriented x3 Limitations: no limitations HENMT: Head: Yes normal to inspection and Yes atraumatic Ears: hearing grossly normal bilaterally and external ears normal General nose exam: Normal external nose present, no nasal discharge noted and no epistaxis Face and sinus: Yes normal facial exam, No abrasion and No laceration Mouth: Normal oral and palatal mucosa present, no drooling and no muffled voice Eyes: General: appearance normal, both eyes and all related structures Periorbital: periorbital findings normal Eyelids: Yes eyelids normal Conjunctivae: conjunctivae normal Pupils: Equal, round and reactive pupils present EOM: EOMs intact bilaterally Neck: Neck: Yes normal visual inspection, Yes full ROM and Yes no lymphadenopathy Chest: Chest palpation & inspection: normal inspection of the chest Resp: Effort & Inspection: normal respiratory effort and able to speak in complete sentences GI: Inspection: Yes normal to inspection Neuro: General: patient oriented x3 and moves all extremities Cranial nerves: Yes Equal, round and reactive pupils present Cognition (Neuro): normal cognition Motor exam (neuro): 5/5 motor strength present throughout Sensory Exam: Normal double simultaneous stimulation for sensation Coordination: f [id number] test normal Extrem: General: Yes normal to inspection, Yes full ROM and Yes capillary refill normal Psych: Appearance: grossly normal Mental Status: mental status grossly normal Affect: normal affect Attitude: cooperative Thought process: Normal thought process present Thought content: Normal thought content present Insight: Good insight present (Psych) NIH Stroke Scale Internal: Initial- Upon Arrival Time: 17:59 Level of Consciousness: Alert Level of Consciousness Questions: Answers both questions correctly Level of Consciousness Commands: Performs both tasks correctly Best Gaze: Normal Visual: No visual loss Facial Palsy: Normal Motor Arm (Right): No drift Motor Arm (Left): No drift Motor Leg (Right): No drift Motor Leg (Left): No drift Limb Ataxia: Absent Sensory: Normal Best Language: No aphasia Dysarthia: Normal Extinction and Inattention: No abnormality Score: 0 Course Course Course Narrative: Patient's chest x-ray was interpreted by the radiologist as having no acute process MDM - Extremity (Nontraumatic) MDM Narrative Medical decision making narrative: Patient is a 56 year old female presenting to the emergency department today with right arm pain. Patient's physical exam was unremarkable. Patient's blood work showed a normal troponin that was trending downward upon repeat. Patient's EKG was unremarkable. Patient's chest x-ray showed no acute process. Patient's presentation was consistent with a possible rotator cuff injury rather than a cardiac or neurologic issue. I explained my physical exam findings as well as all test results to the patient. I answered all questions asked by the patient. I stressed the importance of the patient following up with her primary care provider. I stressed the importance of patient following up with orthopedics. I stressed the importance of the patient returning to the emergency department immediately if her symptoms were to worsen or if she were to develop any dizziness, shortness of breath, difficulty breathing, chest pain, blurry vision, loss of vision, nausea, vomiting, abdominal pain, fever, chills, back pain, or any other complaints. Patient verbalized agreement and understanding with this treatment plan and discharge. Differential Diagnosis Differential diagnosis: Unlikely gout (Rotator cuff injury, right arm pain, HI, AMI, NSTEMI, STEMI) Medical Records Attestation: I reviewed the patient's medical records. Lab Data Attestation: I reviewed the patient's lab results. Result diagrams: 08/19/21 16:20 08/19/21 16:20 Labs: Lab Results 08/19/21 08/19/21 08/19/21 Range/Units 16:20 16:20 16:20 WBC 8.4 (4.8-10.8) X10*3/uL RBC 4.10 L (4.20-5.50) X10*6/uL Hgb 12.6 (12.0-16.0) g/dl Hct 37.0 (37.0-47.0) % MCV 90.2 (80.0-98.0) fL MCH 30.7 (27.0-33.0) pg MCHC 34.1 (31.0-35.0) g/dl RDW 12.1 (11.0-16.0) % Plt Count 281 (160-400) X10*3/uL MPV 10.5 (9.4-12.3) fL Immature Gran % (Auto) 0.4 (0.0-0.4) % Neut % (Auto) 51.3 (45-73) % Lymph % (Auto) 39.6 (20-40) % [place] % (Auto) 6.5 (2-11) % Eos % (Auto) 1.6 (0-4) % Baso % (Auto) 0.6 (0-2) % Lymph # (Auto) 3.3 (1.2-4.9) X10*3/uL [place] # (Auto) 0.5 (0.1-1.2) X10*3/uL Eos # (Auto) 0.1 (0.0-0.4) X10*3/uL Baso # (Auto) 0.1 (0.0-0.2) X10*3/uL Abs Immat Gran (auto) 0.03 (0.00-0.03) X10*3/uL Absolute Neuts (auto) 4.3 (2.0-8.3) x10*3/uL Absolute Nucleated RBC 0.000 (0.0-0.012) X10*3/uL Nucleated RBC % (auto) 0.0 (0.0-0.2) /100WBC Sodium 136 (135-145) mmol/L Potassium 3.8 (3.3-5.1) mmol/L Chloride 102 (96-108) mmol/L Carbon Dioxide 26 (22-29) mmol/L Anion Gap 12 (12-20) BUN 12 (9-16) mg/dL Creatinine 1.02 (0.5-1.4) mg/dL Estim Creat Clear Calc 52.7 Estimated GFR 56 Random Glucose 229 H (60-115) mg/dL Calcium 9.8 (8.4-10.2) mg/dL Total Bilirubin 0.5 (0.0-1.0) mg/dL AST 31 (5-31) U/L ALT 32 H (0-31) U/L Alkaline Phosphatase 78 (39-117) U/L Troponin I High Sens 6.3 (<3.5-17.0) ng/L Total Protein 7.3 (6.5-8.0) g/dL Albumin 3.9 (3.5-5.0) g/dL 08/19/21 Range/Units 19:11 WBC (4.8-10.8) X10*3/uL RBC (4.20-5.50) X10*6/uL Hgb (12.0-16.0) g/dl Hct (37.0-47.0) % MCV (80.0-98.0) fL MCH (27.0-33.0) pg MCHC (31.0-35.0) g/dl RDW (11.0-16.0) % Plt Count (160-400) X10*3/uL MPV (9.4-12.3) fL Immature Gran % (Auto) (0.0-0.4) % Neut % (Auto) (45-73) % Lymph % (Auto) (20-40) % [place] % (Auto) (2-11) % Eos % (Auto) (0-4) % Baso % (Auto) (0-2) % Lymph # (Auto) (1.2-4.9) X10*3/uL [place] # (Auto) (0.1-1.2) X10*3/uL Eos # (Auto) (0.0-0.4) X10*3/uL Baso # (Auto) (0.0-0.2) X10*3/uL Abs Immat Gran (auto) (0.00-0.03) X10*3/uL Absolute Neuts (auto) (2.0-8.3) x10*3/uL Absolute Nucleated RBC (0.0-0.012) X10*3/uL Nucleated RBC % (auto) (0.0-0.2) /100WBC Sodium (135-145) mmol/L Potassium (3.3-5.1) mmol/L Chloride (96-108) mmol/L Carbon Dioxide (22-29) mmol/L Anion Gap (12-20) BUN (9-16) mg/dL Creatinine (0.5-1.4) mg/dL Estim Creat Clear Calc Estimated GFR Random Glucose (60-115) mg/dL Calcium (8.4-10.2) mg/dL Total Bilirubin (0.0-1.0) mg/dL AST (5-31) U/L ALT (0-31) U/L Alkaline Phosphatase (39-117) U/L Troponin I High Sens 5.3 (<3.5-17.0) ng/L Total Protein (6.5-8.0) g/dL Albumin (3.5-5.0) g/dL ECG Data Attestation EKG: I personally reviewed and interpreted this ECG as follows: Prior ECG tracings: available for review Interpretation: Normal sinus rhythm Discharge Plan Discharge Clinical Impression: Shoulder blade pain Patient Disposition: Home, Self-Care Instructions: Rotator Cuff Injury (ED) Additional Instructions: Call to schedule a follow up appointment with an Orthopedic provider. Prescriptions: No Action cyclobenzaprine 10 mg tablet 10 mg PO TID PRN (Reason: muscle spasm) Qty: 12 0RF lidocaine [Lidoderm] 5 % adhesive patch,medicated 1 patch topical DAILY Qty: 15 0RF Rx Instructions: leave on most painful area for up to 12 hrs ibuprofen 600 mg tablet 600 mg PO Q8H PRN (Reason: pain) Qty: 14 0RF Referrals: El Rao MD [Primary Care Provider] - 2 days Interventions: ED Discharge Assessment Last Done: 08/19/21 20:04 Discharge Date/Time: 08/19/21 20:15 Print Language: Luxembourgish
[2021-08-19 19:13] VITALS: BP 137/87; PULSE 84; RESP 18; O2SAT 99
[2021-08-19 19:37] LABS: Troponin-I High Sensitivity 5.3 ng/L (<3.5-17.0)
== END 2021-08-19 20:15 | disposition home or self-care (01) ==
PROVIDERS: Physician Assistant Medical; Emergency Provider Emergency Medicine; PCP Internal Medicine
DX: M25.511 Pain in right shoulder (principal)
CPT/HCPCS: 36415; 71045; 80053; 84484; 85025; 93005; 99283

== ENCOUNTER 2021-09-15 16:29 | Outpatient (REF) | payer MEDICAID, SELFPAY ==
[2021-09-15 16:45] LABS: MANUAL DIFF FLAG NO
[2021-09-15 17:13] LABS: Basophils Absolute Auto 0.1 X10*3/uL (0.0-0.2); Basophils Percent Auto 0.7 % (0-2); Eosinophils Absolute Auto 0.1 X10*3/uL (0.0-0.4); Hemoglobin 13.3 g/dl (12.0-16.0); Imm Gran Abs Auto 0.02 X10*3/uL (0.00-0.03); Imm Gran Pct Auto 0.2 % (0.0-0.4); Lymphocytes Absolute Auto 3.5 X10*3/uL (1.2-4.9); Lymphocytes Percent Auto 39.6 % (20-40); Mean Corpuscular HGB Conc 34.1 g/dl (31.0-35.0); Mean Corpuscular Hemoglobin 30.6 pg (27.0-33.0); Mean Corpuscular Volume 89.9 fL (80.0-98.0); Mean Platelet Volume 10.9 fL (9.4-12.3); Monocytes Absolute Auto 0.5 X10*3/uL (0.1-1.2); Monocytes Percent Auto 5.4 % (2-11); Neutrophils Absolute Auto 4.7 x10*3/uL (2.0-8.3); Neutrophils Percent Auto 53.1 % (45-73); Platelet Count 327 X10*3/uL (160-400); Red Blood Count 4.34 X10*6/uL (4.20-5.50); White Blood Count 8.9 X10*3/uL (4.8-10.8)
[2021-09-15 17:22] LABS: Estimated Average Glucose 249 mg/dL; Hemoglobin A1c % 10.3 %
[2021-09-15 17:38] LABS: Creatinine Urine 114.02 mg/dL; Microalbum/Creatinine Ratio Ur 5.2 ug/mg cr
[2021-09-15 17:41] LABS: Alanine Aminotransferase 37 U/L (0-31); Albumin Level 4.1 g/dL (3.5-5.0); Alkaline Phosphatase 92 U/L (39-117); Anion Gap 13 (12-20); Aspartate Amino Transferase 38 U/L (5-31); Bilirubin Total 0.6 mg/dL (0.0-1.0); Blood Urea Nitrogen 15 mg/dL (9-16); Calcium 9.7 mg/dL (8.4-10.2); Carbon Dioxide 28 mmol/L (22-29); Chloride 98 mmol/L (96-108); Estimated Glomerular Filt Rate 54; Glucose Random 322 mg/dL (60-115); Potassium 4.6 mmol/L (3.3-5.1); Sodium 134 mmol/L (135-145); Total Protein 7.6 g/dL (6.5-8.0)
[2021-09-15 18:05] LABS: Free T4 (Free Thyroxine) 1.23 ng/dL (0.71-1.85); Thyroid Stimulating Hormone 2.37 uIU/mL (0.32-4.0); Vitamin D 25-OH Total 20.5 ng/mL (>30)
[2021-09-15 18:11] LABS: Vitamin B12 319 pg/mL (200-900)
== END 2021-09-15 16:30 | disposition home or self-care (01) ==
LOC: HO.LAB 16:29
PROVIDERS: PCP Internal Medicine; Visit Provider Internal Medicine
DX: E11.9 Type 2 diabetes mellitus without complications (principal); R53.83 Other fatigue; E03.9 Hypothyroidism, unspecified; E55.9 Vitamin D deficiency, unspecified
CPT/HCPCS: 36415; 80053; 82043; 82306; 82607; 83036; 84439; 84443; 85025

== ENCOUNTER → 2021-10-11 09:34 | Outpatient (BNVA) | payer MEDICAID, SELFPAY | PROVIDERS: PCP Internal Medicine; Referring Provider Internal Medicine; Visit Provider Surgery | DX: K46.9 Unspecified abdominal hernia without obstruction or gangrene (principal) | CPT/HCPCS: 99212 ==

== ENCOUNTER 2021-11-09 07:41 | Outpatient (REF) | payer MEDICAID, SELFPAY ==
--- NOTE | ~2021-11-09 | CT_ITS ---
EXAMINATION: CT ABDOMEN AND PELVIS WITHOUT CONTRAST CLINICAL INFORMATION: Abdominal hernia without obstruction COMPARISON: CT abdomen pelvis 10/31/2019 TECHNIQUE: Multidetector volumetric imaging was performed from the superior aspect of the liver through the pubic symphysis. Sagittal and coronal reformatted images were obtained on the technologist's workstation. This CT examination was performed using dose optimization techniques as appropriate, variously including the following: *Automated exposure control *Adjustment of mA and/or kV according to patient size (this includes techniques or standardized protocols for targeted exams where dose is matched to indication/reason for exam; i.e. extremities or head) *Use of iterative reconstruction technique DLP: 507 mGy-cm FINDINGS: Visualized lung bases are well aerated. Coronary artery calcifications are incompletely visualized. The liver is normal in size but demonstrates diffusely decreased attenuation. The gallbladder is normal in appearance. Mild fatty atrophy of the pancreas. The spleen and adrenal glands are unremarkable. Small anterior splenule. Symmetrically sized kidneys. There are a few 1 to 2 mm nonobstructing calculi within each kidney again noted. There is no hydronephrosis of either kidney present. The stomach is decompressed. Normal caliber loops of small and large bowel. Mild to moderate colonic diverticulosis without CT evidence to suggest active diverticulitis. Normal appendix. There is an umbilical hernia which contains a single nonobstructing loop of small bowel. Fascial defect for this hernia measures approximately 4.6 x 3.8 cm in craniocaudal by transverse dimension. Normal caliber abdominal aorta. No gross retroperitoneal lymphadenopathy. The bladder is normal in appearance. Unremarkable CT appearance of the uterus. No gross free pelvic fluid. No inguinal lymphadenopathy. Mild to moderate degenerative changes of the spine. CT/CT abdomen pelvis wo con IMPRESSION: -Moderate sized umbilical hernia containing a single loop of nonobstructed small bowel. -Diffusely decreased liver attenuation suggesting hepatic steatosis. -Tiny nonobstructing bilateral renal calculi. -Colonic diverticulosis. Fleischner guidelines were followed.
== END 2021-11-09 07:42 | disposition home or self-care (01) ==
LOC: HO.CT 07:41
PROVIDERS: PCP Internal Medicine; Visit Provider Surgery
DX: K46.9 Unspecified abdominal hernia without obstruction or gangrene (principal)
CPT/HCPCS: 74176

== ENCOUNTER → 2021-11-18 10:18 | Outpatient (BNVA) | payer MEDICAID, SELFPAY | PROVIDERS: PCP Internal Medicine; Referring Provider Internal Medicine; Visit Provider Surgery | DX: K46.9 Unspecified abdominal hernia without obstruction or gangrene (principal) | CPT/HCPCS: 99212 ==

== ENCOUNTER 2021-11-27 09:30 | Emergency (ER) | payer MEDICAID, SELFPAY ==
--- NOTE | 2021-11-27 | ECG_ITS ---
Test Reason : DIZZINESS Blood Pressure : / mmHG Vent. Rate : 073 BPM Atrial Rate : 073 BPM P-R Int : 148 ms QRS Dur : 072 ms QT Int : 404 ms P-R-T Axes : 049 080 043 degrees QTc Int : 445 ms Normal sinus rhythm Normal ECG When compared with ECG of 19-AUG-2021 16:06, No significant change was found Referred By: Nadia Causey Electronically Signed By:Sergio Louis
--- NOTE | ~2021-11-27 | CT_ITS ---
EXAMINATION: CT HEAD WITHOUT CONTRAST CLINICAL INFORMATION: Dizziness COMPARISON: CT 10/10/2007 TECHNIQUE: Contiguous axial imaging was performed from the skull base to vertex without intravenous administration of contrast. This CT examination was performed using dose optimization techniques as appropriate, variously including the following: *Automated exposure control *Adjustment of mA and/or kV according to patient size (this includes techniques or standardized protocols for targeted exams where dose is matched to indication/reason for exam; i.e. extremities or head) *Use of iterative reconstruction technique DLP: 566 mGy-cm FINDINGS: There is no evidence of acute intracranial hemorrhage or territorial infarction. No abnormal mass effect or midline shift is seen. [place] to white matter differentiation is well preserved. No extra-axial fluid collections are identified. Redemonstrated is left basal ganglia calcification.. No acute calvarial fracture. The mastoid air cells and visualized portions of the paranasal sinuses are well aerated. CT/CT head/brain wo con IMPRESSION: No CT evidence of acute intracranial pathology.
--- NOTE | ~2021-11-27 | XR_ITS ---
EXAMINATION: XR CHEST CLINICAL INFORMATION: Dizziness COMPARISON: 08/19/2021 and priors TECHNIQUE: 2 views of the chest were obtained. FINDINGS: ECG leads overlie the thorax. Heart and mediastinal contours stable and within normal limits. Lungs clear without focal consolidation, effusion or pneumothorax. Epicardial fat pad overlying the left heart border better depicted on recent abdominal CTA. Nonobstructive gas pattern. No acute osseous finding. XR/XR chest 2V IMPRESSION: No acute cardiopulmonary process.
[2021-11-27 09:36] VITALS: BP 125/84; PULSE 92; RESP 16; TEMP 36.2; O2SAT 98; BMI 31.3
[2021-11-27 09:53] LABS: Glucose, Whole Blood 490 mg/dL (60-115)
[2021-11-27 10:22] LABS: MANUAL DIFF FLAG NO
[2021-11-27 10:24] LABS: Basophils Percent Auto 0.7 % (0-2); Eosinophils Absolute Auto 0.1 X10*3/uL (0.0-0.4); Hematocrit 42.1 % (37.0-47.0); Hemoglobin 14.5 g/dl (12.0-16.0); Imm Gran Abs Auto 0.03 X10*3/uL (0.00-0.03); Imm Gran Pct Auto 0.5 % (0.0-0.4); Lymphocytes Absolute Auto 2.2 X10*3/uL (1.2-4.9); Lymphocytes Percent Auto 35.2 % (20-40); Mean Corpuscular HGB Conc 34.4 g/dl (31.0-35.0); Mean Corpuscular Hemoglobin 30.3 pg (27.0-33.0); Mean Corpuscular Volume 88.1 fL (80.0-98.0); Monocytes Absolute Auto 0.4 X10*3/uL (0.1-1.2); Monocytes Percent Auto 6.5 % (2-11); Neutrophils Absolute Auto 3.4 x10*3/uL (2.0-8.3); Neutrophils Percent Auto 55.1 % (45-73); Platelet Count 273 X10*3/uL (160-400); Red Blood Count 4.78 X10*6/uL (4.20-5.50); Red Cell Distribution Width 12.2 % (11.0-16.0); White Blood Count 6.1 X10*3/uL (4.8-10.8)
[2021-11-27] MEDS: 0.9 % Sodium Chloride 1,000 ML 999 ML IV ×2 (10:29→12:30)
[2021-11-27 10:30] VITALS: PULSE 86; RESP 19
[2021-11-27 10:34] LABS: Acetone, serum QL Negative (Negative)
--- NOTE | 2021-11-27 10:36 | ED_ITS ---
HPI - General Adult General Chief complaint: General Medical Stated complaint: dizziness/high blood sugar Time Seen by Provider: 11/27/21 09:57 Source: patient Mode of arrival: ambulatory Limitations: no limitations History of Present Illness HPI narrative: 56-year-old female with a history of insulin-dependent diabetes on glipizide, metformin and Trulicity weekly, high cholesterol here with reports of high blood sugar for the last 1 week. Patient tells me 1 month ago her primary care doctor decreased her metformin from 1000 mg BID to 500 mg BID. She is also on glipizide 10mg BID. She tells me he was planning on getting her switch over to an insulin pump however she is pending her insurance approval. For the last week she has noted that her blood sugars have been running in the 400s up to 500. She has had increased thirst, increased urination. She tells me for the last few days she has felt very dehydrated and when she stands up she feels lightheaded like she might pass out. She denies any headache, chest pain, difficulty breathing, cough, fevers, chills, urinary symptoms, abdominal pain. Related Data Home Medications Medication Instructions Recorded Confirmed dulaglutide 1.5 mg/0.5 mL mg SUBCUT QWEEK 10/11/21 11/18/21 subcutaneous pen injector (Trulicity) glipizide 10 mg tablet 10 mg PO BID 10/11/21 11/18/21 metformin 500 mg tablet 1,000 mg PO BID 10/11/21 11/18/21 Previous Rx's Medication Instructions Recorded cyclobenzaprine 10 mg tablet 10 mg PO TID PRN #12 tab 03/16/21 ibuprofen 600 mg tablet 600 mg PO Q8H PRN #14 tab 03/16/21 lidocaine 5 % topical patch 1 patch TOPICAL DAILY #15 ea 03/16/21 (Lidoderm) Allergies Allergy/AdvReac Type Severity Reaction Status Date / Time SEAFOOD Allergy Unknown ITCHY Uncoded 11/18/21 10:27 THROAT seafood sensetivity Allergy Unknown itchy Uncoded 11/18/21 10:27 throat shellfish Allergy Unknown itchy Uncoded 11/18/21 10:27 throat Review of Systems Review of Systems: Yes all other systems are reviewed and are negative Constitutional: Constitutional: Reports no additional constitutional complaints, Denies body ache(s), Denies chills, Denies fever(s), Denies headache(s) and Denies weakness Eyes: Eyes: Reports no additional eye complaints and Denies change in vision ENT: Reports system reviewed and no additional complaints, except as documented, Reports dizziness, Denies headache(s), Denies nasal congestion, Denies nasal discharge and Denies neck pain Cardiovascular: Cardiovascular: Reports no additional cardiovascular complaints, Denies chest pain, Denies leg edema and Denies dyspnea Respiratory: Respiratory: Reports no additional respiratory complaints, Denies cough and Denies dyspnea Gastrointestinal: Gastrointestinal: Reports no additional gastrointestinal complaints, Denies abdominal pain, Denies diarrhea, Denies nausea and Denies vomiting Genitourinary: Genitourinary: Reports no additional female genitourinary co mplaints and Denies urinary incontinence Comments: Increased urination Musculoskeletal: Musculoskeletal: Reports no additional musculoskeletal complaints, Denies back pain, Denies arthralgias, Denies joint swelling, Denies neck pain, Denies numbness and Denies tingling Integumentary/Breasts: Skin/Breast: Reports system reviewed and no additional complaints, except as docu and Denies rash Neurologic: Reports system reviewed and no additional complaints, except as documented, Reports dizziness, Denies headache(s), Denies numbness, Denies tingling and Denies weakness Endocrine: Endocrine: Reports polydipsia and Reports polyuria PMFSH Past Medical History Attestation statement: The following information was validated with the patient. Source: old records reviewed and nursing notes reviewed Medical History Borderline hypothyroidism Diabetic acidosis, type II High cholesterol Recurrent hernia Social History Social History Alcohol intake: never Advance Directives: No Advance Directives Information Provided: No Physical Exam ED Vital Signs: Vital Signs - 24 hr 11/27/21 09:36 11/27/21 10:30 11/27/21 12:14 Temperature 97.1 F Pulse Rate 92 86 83 Respiratory Rate 16 19 Blood Pressure 125/84 114/73 Pulse Oximetry 98 11/27/21 12:17 11/27/21 12:18 11/27/21 12:59 Temperature Pulse Rate 95 98 79 Respiratory Rate 15 Blood Pressure 121/79 112/74 115/76 Pulse Oximetry 97 BMI result Body Mass Index 31.3 Const General: cooperative, healthy appearing, comfortable and no acute distress Orientation/consciousness: patient oriented x3 Limitations: no limitations HENMT Head: Yes normal to inspection Ears: hearing grossly normal bilaterally and TM's normal bilaterally General nose exam: Normal external nose present Face and sinus: Yes normal facial exam Mouth: Normal oral and palatal mucosa present Teeth and gingiva: dentition normal Throat: Yes posterior oropharynx normal, Yes tonsils normal and Yes uvula midline Eyes General: appearance normal, both eyes and all related structures Pupils: Equal, round and reactive pupils present Neck Neck: Yes normal visual inspection, Yes full ROM, Yes no lymphadenopathy and Yes no meningeal signs Chest Chest palpation & inspection: normal inspection of the chest Resp Effort & Inspection: normal respiratory effort Auscultation: clear to auscultation bilaterally Cardio Rate: regular rate Rhythm: regular rhythm Peripheral pulses: Peripheral pulses 2+ throughout GI Inspection: Yes normal to inspection Palpation (GI): Soft to palpation and nontender General: Yes no CVA tenderness Back/Spine/Pelvis Back: no CVA tenderness Skin General skin exam: no rashes or lesions noted Neuro General: patient oriented x3, moves all extremities and no meningeal signs Cranial nerves: Yes CN's II-XII intact bilaterally, Yes Equal, round and reactive pupils present, Yes Bilaterally intact EOM present, Yes Nystagmus not present, Yes Normal facial strength present and Yes Midline tongue present Cognition (Neuro): normal cognition Speech: Other speech findings present (Neuro) (Speech normal) Motor exam (neuro): 5/5 motor strength present throughout Sensory Exam: Normal double simultaneous stimulation for sensation Coordination: [id number] test normal and [id number] test normal Extrem General: Yes normal to inspection, Yes no pedal edema and Yes no calf tenderness Course Course Course Narrative: 56-year-old female with a history of insulin-dependent diabetes with a recent medication change in the last month here with 1 week of increased blood sugars at home with increased thirst, increased urination, feeling dehydrated and dizzy when she moves around. Blood sugar on arrival was 480. Vitals are stable. Normal neurological exam. No recent illnesses. No chest pain. Will check labs, UA, COVID screen, chest x-ray an EKG. Likely related to medication changes Reevaluation(s) Reevaluation #1: Labs show mild hyperglycemia with no evidence of DKA. Patient receiving fluids and 0.1 units/kg of insulin. Chest x-ray shows no acute finding. EKG shows no changes and her troponin is negative. UA is pending. Time: 11:30 Reevaluation #2: Spoke to patient. She is still complaining of feeling dizzy and now feels like she is dizzy even without moving. She has a normal neurological exam with no cerebellar dysfunction. However due to history of diabetes will check CT head. Will check orthostatic vital signs and give additional L of normal saline Time: 11:45 Reevaluation #3: CT head shows no acute finding. Orthostatics vital signs are negative. Patient feels improved after receiving additional L of normal saline. I walked to the bathroom and she has a steady gait. Normal neurological exam. No focal findings. Blood sugar 208. Hyperglycemia likely secondary to recent medication changes. We discussed increasing her dose of metformin and following up with Dr. Rao next week. Reviewed worrisome signs and symptoms of when to return to the emergency department. Comfortable discharge home. Time: 14:00 Medical Decision Making MDM Narrative Medical decision making narrative: Hyperglycemia secondary to medication changes, DKA, underlying infection (nega tive UA, CXR, COVID screen), ACS (negative troponin the EKG which is normal-less likely) ICH vs CVA vs cerebellar infarct (less likely with normal CT head, symptoms >48 hrs, non focal findings on neuro exam) Medical Records Medical records reviewed: Yes I reviewed the patient's medical records. Lab Data Lab results reviewed: Yes I reviewed the patient's lab results. Result diagrams: 11/27/21 10:13 11/27/21 10:13 Labs: Lab Results 11/27/21 11/27/21 11/27/21 Range/Units 09:49 10:13 10:13 WBC 6.1 (4.8-10.8) X10*3/uL RBC 4.78 (4.20-5.50) X10*6/uL Hgb 14.5 (12.0-16.0) g/dl Hct 42.1 (37.0-47.0) % MCV 88.1 (80.0-98.0) fL MCH 30.3 (27.0-33.0) pg MCHC 34.4 (31.0-35.0) g/dl RDW 12.2 (11.0-16.0) % Plt Count 273 (160-400) X10*3/uL MPV 11.0 (9.4-12.3) fL Immature Gran % (Auto) 0.5 H (0.0-0.4) % Neut % (Auto) 55.1 (45-73) % Lymph % (Auto) 35.2 (20-40) % [place] % (Auto) 6.5 (2-11) % Eos % (Auto) 2.0 (0-4) % Baso % (Auto) 0.7 (0-2) % Lymph # (Auto) 2.2 (1.2-4.9) X10*3/uL [place] # (Auto) 0.4 (0.1-1.2) X10*3/uL Eos # (Auto) 0.1 (0.0-0.4) X10*3/uL Baso # (Auto) 0.0 (0.0-0.2) X10*3/uL Abs Immat Gran (auto) 0.03 (0.00-0.03) X10*3/uL Absolute Neuts (auto) 3.4 (2.0-8.3) x10*3/uL Absolute Nucleated RBC 0.000 (0.0-0.012) X10*3/uL Nucleated RBC % (auto) 0.0 (0.0-0.2) /100WBC VBG pH (7.32-7.43) VBG pCO2 mmHg VBG pO2 mmHg VBG HCO3 (22-26) mmol/L VBG O2 Saturation % VBG Base Excess mmol/L Sodium 133 L (135-145) mmol/L Potassium 4.1 (3.3-5.1) mmol/L Chloride 97 (96-108) mmol/L Carbon Dioxide 26 (22-29) mmol/L Anion Gap 14 (12-20) BUN 15 (9-16) mg/dL Creatinine 1.19 (0.5-1.4) mg/dL Estim Creat Clear Calc 45.0 Estimated GFR 47 POC Glucose 490 H* (60-115) mg/dL Random Glucose 475 H* (60-115) mg/dL Lactic Acid (0.5-2.0) mmol/L Calcium 10.0 (8.4-10.2) mg/dL Magnesium 1.7 (1.6-2.6) mg/dL Total Bilirubin 0.7 (0.0-1.0) mg/dL Direct Bilirubin 0.3 (0.0-0.5) mg/dL AST 32 H (5-31) U/L ALT 37 H (0-31) U/L Alkaline Phosphatase 100 (39-117) U/L Troponin I High Sens (<3.5-17.0) ng/L Total Protein 7.5 (6.5-8.0) g/dL Albumin 3.9 (3.5-5.0) g/dL Urine Color Urine Appearance Urine pH (5.0-8.0) Ur Specific [place] (1.005-1.025) Urine Protein (NEG-TRACE) MG/DL Urine Glucose (UA) (NEG) MG/DL Urine Ketones (NEG) MG/DL Urine Blood (NEG) Urine Nitrite (NEG) Ur Leukocyte Esterase (NEG) Urine RBC (0) /HPF Urine WBC (0-4) /HPF Ur Squamous Epith Cells /LPF Urine Bacteria /LPF Acetone, Qual Negative (Negative) COVID-19 (DWAYNE) (Negative) COVID-19 Clin Com 11/27/21 11/27/21 11/27/21 Range/Units 10:13 10:13 10:13 WBC (4.8-10.8) X10*3/uL RBC (4.20-5.50) X10*6/uL Hgb (12.0-16.0) g/dl Hct (37.0-47.0) % MCV (80.0-98.0) fL MCH (27.0-33.0) pg MCHC (31.0-35.0) g/dl RDW (11.0-16.0) % Plt Count (160-400) X10*3/uL MPV (9.4-12.3) fL Immature Gran % (Auto) (0.0-0.4) % Neut % (Auto) (45-73) % Lymph % (Auto) (20-40) % [place] % (Auto) (2-11) % Eos % (Auto) (0-4) % Baso % (Auto) (0-2) % Lymph # (Auto) (1.2-4.9) X10*3/uL [place] # (Auto) (0.1-1.2) X10*3/uL Eos # (Auto) (0.0-0.4) X10*3/uL Baso # (Auto) (0.0-0.2) X10*3/uL Abs Immat Gran (auto) (0.00-0.03) X10*3/uL Absolute Neuts (auto) (2.0-8.3) x10*3/uL Absolute Nucleated RBC (0.0-0.012) X10*3/uL Nucleated RBC % (auto) (0.0-0.2) /100WBC VBG pH (7.32-7.43) VBG pCO2 mmHg VBG pO2 mmHg VBG HCO3 (22-26) mmol/L VBG O2 Saturation % VBG Base Excess mmol/L Sodium (135-145) mmol/L Potassium (3.3-5.1) mmol/L Chloride (96-108) mmol/L Carbon Dioxide (22-29) mmol/L Anion Gap (12-20) BUN (9-16) mg/dL Creatinine (0.5-1.4) mg/dL Estim Creat Clear Calc Estimated GFR POC Glucose (60-115) mg/dL Random Glucose (60-115) mg/dL Lactic Acid 1.7 (0.5-2.0) mmol/L Calcium (8.4-10.2) mg/dL Magnesium (1.6-2.6) mg/dL Total Bilirubin (0.0-1.0) mg/dL Direct Bilirubin (0.0-0.5) mg/dL AST (5-31) U/L ALT (0-31) U/L Alkaline Phosphatase (39-117) U/L Troponin I High Sens < 3.5 (<3.5-17.0) ng/L Total Protein (6.5-8.0) g/dL Albumin (3.5-5.0) g/dL Urine Color Urine Appearance Urine pH (5.0-8.0) Ur Specific [place] (1.005-1.025) Urine Protein (NEG-TRACE) MG/DL Urine Glucose (UA) (NEG) MG/DL Urine Ketones (NEG) MG/DL Urine Blood (NEG) Urine Nitrite (NEG) Ur Leukocyte Esterase (NEG) Urine RBC (0) /HPF Urine WBC (0-4) /HPF Ur Squamous Epith Cells /LPF Urine Bacteria /LPF Acetone, Qual (Negative) COVID-19 (DWAYNE) Negative (Negative) COVID-19 Clin Com See Note 11/27/21 11/27/21 11/27/21 Range/Units 10:32 11:22 12:57 WBC (4.8-10.8) X10*3/uL RBC (4.20-5.50) X10*6/uL Hgb (12.0-16.0) g/dl Hct (37.0-47.0) % MCV (80.0-98.0) fL MCH (27.0-33.0) pg MCHC (31.0-35.0) g/dl RDW (11.0-16.0) % Plt Count (160-400) X10*3/uL MPV (9.4-12.3) fL Immature Gran % (Auto) (0.0-0.4) % Neut % (Auto) (45-73) % Lymph % (Auto) (20-40) % [place] % (Auto) (2-11) % Eos % (Auto) (0-4) % Baso % (Auto) (0-2) % Lymph # (Auto) (1.2-4.9) X10*3/uL [place] # (Auto) (0.1-1.2) X10*3/uL Eos # (Auto) (0.0-0.4) X10*3/uL Baso # (Auto) (0.0-0.2) X10*3/uL Abs Immat Gran (auto) (0.00-0.03) X10*3/uL Absolute Neuts (auto) (2.0-8.3) x10*3/uL Absolute Nucleated RBC (0.0-0.012) X10*3/uL Nucleated RBC % (auto) (0.0-0.2) /100WBC VBG pH 7.34 (7.32-7.43) VBG pCO2 39 mmHg VBG pO2 38 mmHg VBG HCO3 21 L (22-26) mmol/L VBG O2 Saturation 62.0 % VBG Base Excess -3.7 mmol/L Sodium (135-145) mmol/L Potassium (3.3-5.1) mmol/L Chloride (96-108) mmol/L Carbon Dioxide (22-29) mmol/L Anion Gap (12-20) BUN (9-16) mg/dL Creatinine (0.5-1.4) mg/dL Estim Creat Clear Calc Estimated GFR POC Glucose 208 H (60-115) mg/dL Random Glucose (60-115) mg/dL Lactic Acid (0.5-2.0) mmol/L Calcium (8.4-10.2) mg/dL Magnesium (1.6-2.6) mg/dL Total Bilirubin (0.0-1.0) mg/dL Direct Bilirubin (0.0-0.5) mg/dL AST (5-31) U/L ALT (0-31) U/L Alkaline Phosphatase (39-117) U/L Troponin I High Sens (<3.5-17.0) ng/L Total Protein (6.5-8.0) g/dL Albumin (3.5-5.0) g/dL Urine Color YELLOW Urine Appearance CLEAR Urine pH 6.0 (5.0-8.0) Ur Specific [place] 1.020 (1.005-1.025) Urine Protein NEG (NEG-TRACE) MG/DL Urine Glucose (UA) >=1000 H (NEG) MG/DL Urine Ketones 5 (NEG) MG/DL Urine Blood NEG (NEG) Urine Nitrite NEG (NEG) Ur Leukocyte Esterase NEG (NEG) Urine RBC 0 (0) /HPF Urine WBC 0-2 (0-4) /HPF Ur Squamous Epith Cells TRACE /LPF Urine Bacteria NONE /LPF Acetone, Qual (Negative) COVID-19 ([facility]AYNE) (Negative) COVID-19 Clin Com Imaging Data Chest x-ray: Attestation: I personally reviewed and interpreted this imaging study as follows: Radiologist's impression: FINDINGS: ECG leads overlie the thorax. Heart and mediastinal contours stable and within normal limits. Lungs clear without focal consolidation, effusion or pneumothorax. Epicardial fat pad overlying the left heart border better depicted on recent abdominal CTA. Nonobstructive gas pattern. No acute osseous finding. XR/XR chest 2V IMPRESSION: No acute cardiopulmonary process. CT scan - head: Attestation: I personally reviewed and interpreted this imaging study as follows: Radiologist's impression: [id number] [place] [id number] CT Scan Report Signed Patient: Yessi Batres MR#: [id number] : 1965 Acct:[id number] Age/Sex: 56 / F ADM Date: 11/27/21 Loc: [facility].ED Attending Dr: Ordering Physician: Nadia Causey NP Date of Service: 11/27/21 Procedure(s): CT head/brain wo con Accession Number(s): [id number] cc: Nadia Causey NP~ EXAMINATION: CT HEAD WITHOUT CONTRAST CLINICAL INFORMATION: Dizziness? COMPARISON: CT 10/10/2007 TECHNIQUE: Contiguous axial imaging was performed from the skull base to vertex without intravenous administration of contrast. This CT examination was performed using dose optimization techniques as appropriate, variously including the following: *Automated exposure control *Adjustment of mA and/or kV according to patient size (this includes techniques or standardized protocols for targeted exams where dose is matched to indication/reason for exam; i.e. extremities or head) *Use of iterative reconstruction technique DLP: 566 mGy-cm FINDINGS: There is no evidence of acute intracranial hemorrhage or territorial infarction. No abnormal mass effect or midline shift is seen. [place] to white matter differentiation is well preserved. No extra-axial fluid collections are identified. Redemonstrated is left basal ganglia calcification.. No acute calvarial fracture. The mastoid air cells and visualized portions of the paranasal sinuses are well aerated. ? CT/CT head/brain wo con IMPRESSION: No CT evidence of acute intracranial pathology. ECG Data Attestation: I personally reviewed and interpreted this ECG as follows: Interpretation: 1116-normal sinus rhythm with a rate of 73, normal PA, normal QRS, normal QT Discharge Plan Discharge Clinical Impression: Hyperglycemia Patient Disposition: Home, Self-Care Instructions: Diabetic Hyperglycemia (ED) Additional Instructions: Increase your metformin to 1000mg (2 tablets of 500mg) twice daily. Continue your glipizide. Continue your Trulicity. Increase fluids Follow-up with your primary care on Monday to discuss your medications Prescriptions: No Action cyclobenzaprine 10 mg tablet 10 mg PO TID PRN (Reason: muscle spasm) Qty: 12 0RF lidocaine [Lidoderm] 5 % adhesive patch,medicated 1 patch topical DAILY Qty: 15 0RF Rx Instructions: leave on most painful area for up to 12 hrs ibuprofen 600 mg tablet 600 mg PO Q8H PRN (Reason: pain) Qty: 14 0RF metformin 500 mg tablet 1,000 mg PO BID 0RF glipizide 10 mg tablet 10 mg PO BID 0RF Trulicity 1.5 mg/0.5 mL pen injector subcut QWEEK 0RF Referrals: El Rao MD [Primary Care Provider] - 5 days Interventions: ED Discharge Assessment Last Done: 11/27/21 14:17 Discharge Date/Time: 11/27/21 14:19
[2021-11-27 10:37] LABS: Lactic Acid 1.7 mmol/L (0.5-2.0)
[2021-11-27 10:40] LABS: Venous Blood Gas Refer to POC result
[2021-11-27 10:41] LABS: COVID-19 Test Negative (Negative)
[2021-11-27 10:41] LABS: VBG Base Excess -3.7 mmol/L; VBG HCO3 21 mmol/L (22-26); VBG pCO2 39 mmHg; VBG pH 7.34 (7.32-7.43); VBG pO2 38 mmHg
[2021-11-27 10:45] LABS: Troponin-I High Sensitivity < 3.5 ng/L (<3.5-17.0)
[2021-11-27 10:47] LABS: Alanine Aminotransferase 37 U/L (0-31); Albumin Level 3.9 g/dL (3.5-5.0); Alkaline Phosphatase 100 U/L (39-117); Anion Gap 14 (12-20); Aspartate Amino Transferase 32 U/L (5-31); Bilirubin Direct 0.3 mg/dL (0.0-0.5); Bilirubin Total 0.7 mg/dL (0.0-1.0); Blood Urea Nitrogen 15 mg/dL (9-16); Carbon Dioxide 26 mmol/L (22-29); Chloride 97 mmol/L (96-108); Estimated Glomerular Filt Rate 47; Glucose Random 475 mg/dL (60-115); Magnesium 1.7 mg/dL (1.6-2.6); Potassium 4.1 mmol/L (3.3-5.1); Sodium 133 mmol/L (135-145); Total Protein 7.5 g/dL (6.5-8.0)
[2021-11-27] MEDS: Insulin Regular, Human 100 UNIT/ML 3 ML VIAL 7 UNIT IVPUSH (11:25)
[2021-11-27 11:39] LABS: Appearance Urine CLEAR; Color Urine YELLOW; Glucose Urine UA >=1000 MG/DL (NEG); Leukocyte Esterase Urine NEG (NEG); Nitrite Urine NEG (NEG); Urine Blood NEG (NEG); Urine Ketones 5 MG/DL (NEG); Urine Protein NEG (NEG-TRACE)
[2021-11-27 11:49] LABS: RBC Urine 0 /HPF (0); Squamous Epithelial Cell Urine TRACE /LPF; WBC Urine 0-2 /HPF (0-4)
[2021-11-27 12:14] VITALS: BP 114/73; PULSE 83
[2021-11-27 12:17] VITALS: BP 121/79; PULSE 95
[2021-11-27 12:18] VITALS: BP 112/74; PULSE 98
[2021-11-27 12:59] VITALS: BP 115/76; PULSE 79; RESP 15; O2SAT 97
[2021-11-27 13:12] LABS: Glucose, Whole Blood 208 mg/dL (60-115)
== END 2021-11-27 14:19 | disposition home or self-care (01) ==
PROVIDERS: Nurse Practitioner Family; Emergency Provider Emergency Medicine Emergency Medical Services; PCP Internal Medicine
DX: E11.65 Type 2 diabetes mellitus with hyperglycemia (principal); Z79.84 Long term (current) use of oral hypoglycemic drugs; R42 Dizziness and giddiness; Z20.822 Contact with and (suspected) exposure to COVID-19
CPT/HCPCS: 36415; 70450; 71046; 80048; 80076; 81001; 82009; 82803; 82947; 83605; 83735; 84484; 85025; 87040; 87635; 93005; 96361; 96374; 99284

== ENCOUNTER 2021-12-31 06:04 | Day surgery (SDC) | payer MEDICAID, SELFPAY ==
[2021-12-17 09:50] VITALS: BMI 30.9
--- NOTE | 2021-12-30 10:25 | P.CONAN_ITS ---
Documented by User: Priscila Gallagher NP 12/30/21 10:27 HPI - Anesthesia Eval Consult details Narrative: 56yo F Recurrent Supraumbilical Hernia Repair with mesh PMFSH Active Problems Active Problems: All Active Problems (Updated 12/17/21 @ 09:46 by Veronica Wilder RN) COVID-19 (Acute) Hyperglycemia (Acute) Recurrent hernia (Acute) Past Medical History Medical History Arthritis COVID-19 vaccine series completed Diabetes Diabetic acidosis, type II High cholesterol History of COVID-19 Hypothyroid PONV (postoperative nausea and vomiting) Recurrent hernia Surgical History Surgical History H/O colonoscopy Hx of lumbar discectomy Hx of umbilical hernia repair Social History Social History Are you a primary residential caregiver to a significant other at home: No Do you presently have visiting nurse or other home services: No Alcohol intake: never Patient Tobacco Use Status: Former Tobacco user Quit Date: age 26 Tobacco use type: Cigarette Use of substances other than those prescribed or required for medical reasons: No Have you been hit, kicked, punched, or otherwise hurt by someone within the past year? If so, by whom?: No Are you DNR?: No Advance Directives: No Advance Directives Information Provided: Yes (brochure mailed) Advance Directives on File: No Recently lost weight without trying: No Eating poorly because of decreased appetite: No Nutrition Risks: No Nutritional Risk Patient : No (N/A) Poor oral hygiene: No Meds Allergies Allergy/AdvReac Type Severity Reaction Status Date / Time shellfish derived Allergy Severe severe Verified 12/17/21 09:43 throat itching Home Medications Medication Instructions Recorded Confirmed Last Taken Type dulaglutide 1.5 mg/0.5 mL 1.5 mg subcut QWEEK 10/11/21 11/18/21 Unknown History subcutaneous pen injector (Trulicity) insulin glargine 100 unit/mL (3 30 unit subcut QAM 12/17/21 12/17/21 Unknown History mL) subcutaneous pen (Basaglar KellyPen U-100 Insulin) levothyroxine 75 mcg tablet 1 tab PO DAILY 12/17/21 12/17/21 12/31/21 History (Synthroid) Exam Exam Date and Time: December 30, 2021 1025 Height,Weight and Vital Signs: Height 4 ft 11 in Weight 69.4 kg Pertinent Lab Results Pertinent Lab Results: Laboratory Tests 11/27/21 11/27/21 10:13 10:13 WBC 6.1 Hgb 14.5 Hct 42.1 Plt Count 273 Sodium 133 L Potassium 4.1 Chloride 97 Carbon Dioxide 26 BUN 15 Creatinine 1.19 Narrative Narrative: EKG 11/2021 Vent. Rate : 073 BPM ? ? Atrial Rate : 073 BPM ?? P-R Int : 148 ms? QRS Dur : 072 ms ? ? QT Int : 404 ms ? ? ? P-R-T Axes : 049 080 043 degrees ?? QTc Int : 445 ms ? Normal sinus rhythm Normal ECG When compared with ECG of 19-AUG-2021 16:06, No significant change was found Assessment and Plan Assessment Anesthesia Assessment: Chart Reviewed Documented by User: Nasreen Dsouza MD 12/31/21 07:56 PMF Past Medical History Medical History Arthritis COVID-19 vaccine series completed Diabetes Diabetic acidosis, type II High cholesterol History of COVID-19 Hypothyroid PONV (postoperative nausea and vomiting) Recurrent hernia Surgical History Surgical History H/O colonoscopy Hx of lumbar discectomy Hx of umbilical hernia repair History of Problems with Anesthesia: No Social History Social History Are you a primary residential caregiver to a significant other at home: No Do you presently have visiting nurse or other home services: No Alcohol intake: never Patient Tobacco Use Status: Former Tobacco user Quit Date: age 26 Tobacco use type: Cigarette Use of substances other than those prescribed or required for medical reasons: No Have you been hit, kicked, punched, or otherwise hurt by someone within the past year? If so, by whom?: No Are you DNR?: No Advance Directives: No Advance Directives Information Provided: Yes (brochure mailed) Advance Directives on File: No Recently lost weight without trying: No Eating poorly because of decreased appetite: No Nutrition Risks: No Nutritional Risk Patient : No (N/A) Poor oral hygiene: No Meds Allergies Allergy/AdvReac Type Severity Reaction Status Date / Time shellfish derived Allergy Severe severe Verified 12/17/21 09:43 throat itching Home Medications Medication Instructions Recorded Confirmed Last Taken Type dulaglutide 1.5 mg/0.5 mL 1.5 mg subcut QWEEK 10/11/21 11/18/21 Unknown History subcutaneous pen injector (Trulicity) insulin glargine 100 unit/mL (3 30 unit subcut QAM 12/17/21 12/17/21 Unknown History mL) subcutaneous pen (Basaglar KwikPen U-100 Insulin) levothyroxine 75 mcg tablet 1 tab PO DAILY 12/17/21 12/17/21 12/31/21 History (Synthroid) Exam Airway Mallampati Class: II TM Dist: >3cm Neck ROM: Full Loose/Missing/Broken Teeth: No Heart: RRR Lungs: CTA Assessment and Plan Assessment Anesthesia Assessment: Anesthesia Plan Discussed Final Anesthetic Review History of Problems with Anesthesia: No NPO: Yes ASA Class: III Final Preanesthetic Review: Meds/Allgs Chart Reviewed, Consent Obtained/Reviewed and Anes Risks/Benef Reviewed Procedure Risk: Low Anesthetic Plan Anesthetic Plan: GA Disposition: Standard PACU
[2021-12-31] VITALS (13 sets, daily range): BP systolic 117–154; BP diastolic 71–93; PULSE 74–95; RESP 14–20; TEMP 36.3–36.6; O2SAT 95–100
[2021-12-31 06:29] LABS: Glucose, Whole Blood 292 mg/dL (60-115)
[2021-12-31] MEDS: Lactated Ringers 1,000 ML 100 ML IVCONT (06:45)
[2021-12-31] MEDS: Scopolamine 1.5 MG PATCH.TD.3 TRANSDERMA (06:45)
[2021-12-31 06:58] LABS: Anion Gap 10 (12-20); Carbon Dioxide 26 mmol/L (22-29); Chloride 103 mmol/L (96-108); Potassium 4.3 mmol/L (3.3-5.1); Sodium 135 mmol/L (135-145)
--- NOTE | 2021-12-31 07:23 | MHC.SHP ---
Pre-Procedural Eval Section A Date of Service: 12/31/21 Section B Chief Complaint: abdominal hernia without obstruction or gangrene Details of Present Illness: has recurrent supraumbiical hernia Relevant Family History (Specify if Yes): No Relevant Social History: None Present Medications: see Short Stay Collaborative assessment Medical History: Significant History (hyperglycemia) Allergies: Allergies Allergy/AdvReac Type Severity Reaction Status Date / Time shellfish derived Allergy Severe severe Verified 12/17/21 09:43 throat itching Review of Systems Sugical H&P ROS: Negative: Constitution, Cardiovascular, Respiratory, Neurological, Psychiatric, Hem-Onc, Allergic/Immunologic, Gastrointestinal, Genitourinary, Musculoskeletal, Integumentary, Endocrine and Eyes/Ears/Nose/Throat Exam Surgical H&P Exam: Normal: HEENT, Normal: Heart, Normal: Lungs, Normal: Extremities, Normal: Skin and Normal: Neurological and Significant Findings: Abdomen (palpable hernia, supraumbilical) Plan I have reviewed the history and physical and performed a pertinent physical examination on my patient. No changes have occurred unless specified.
--- NOTE | 2021-12-31 08:26 | W.PM.OPN ---
Operative Note Operative Note Date of Service: 12/31/21 Narrative: Preop diagnosis: recurrent supraumbilical hernia Postop diagnosis: The same Procedure: Repair of recurrent supraumbilical hernia with Ventralex mesh Surgeon: El Ellis MD [employer] Person: johanna Kumari student the patient is a 56 year female has had multiple repairs of epigastric hernias as well as the supraumbilical hernia. She had another recurrence on the supraclavicular area. She understood the technique of repair. She is were the risks, benefits, and alternatives She was brought to the operating room. She was replaced supine on the table under general anesthesia via endotracheal tube. The abdomen is prepped and draped in the usual sterile fashion. A surgical time-out was done. The patient received cefazolin 2 g IV preoperatively The hernia was palpable on the supraumbilical area just a little bit to the right of the midline. I infiltrated this area with lidocaine 1%. I made an incision using a blade 15. This was carried down through the full-thickness of the skin and subcutaneous fat gently with electrocautery a in layer by layer fashion. I will then eventually able to visualize the hernia sac. I carefully define this with sharp dissection using the Metzenbaum scissors. I then was able to define the fascial defect. I the hernia sac of the fascial defect until all of these were completely reduced. There was however a opening as well in the hernia sac. I could see at adherent bowel loop medial to this which I was able to separate by lysing a short thick band. Visualization and palpation of the surrounding margins did not reveal any other adhesions. The fascial defect was about 2.5 cm . The fascia ever came together easily without any tension. I used a Ventralex mesh, small-sized to over the underside of the fascia. This mesh was flattened. I secured the Prolene straps of the mesh with Prolene to suture to the fascial edge I then proceeded to reapposed the fascia over the mesh with a running Maxon 1 stitch The subcutaneous layer was reapposed with Dexon 3-0 interrupted sutures. Skin closure was achieved with Dexon 4-0 subcuticular running stitch. Steri-Strips and dressings were applied. The incision was infiltrated with Marcaine 0.5% for postop analgesia the procedure was completed The patient tolerated well. There were no complications noted. Initial and final counts of sponges instruments were correct. Estimated blood loss was about 10 cc The patient was extubated without difficulty and transferred to recovery room with stable vital signs.
[2021-12-31] MEDS: oxyCODONE HCl Immed Release 5 MG TABLET PO (08:49)
[2021-12-31] MEDS: ondansetron HCL 4 MG/2 ML VIAL IVPUSH (08:49)
[2021-12-31] MEDS: Acetaminophen 325 MG TABLET 650 MG PO (08:49)
[2021-12-31] MEDS: fentaNYL citrate/PF 100 MCG/2 ML VIAL 25 MCG IVPUSH ×2 (09:15→09:27)
== END 2021-12-31 10:50 | disposition home or self-care (01) ==
PROVIDERS: Nurse Practitioner; PCP Internal Medicine; Visit Provider Surgery
PROC: (CPT 49560; principal; 2021-12-31 07:30)
DX: K43.2 Incisional hernia without obstruction or gangrene (principal); E78.00 Pure hypercholesterolemia, unspecified; E02 Subclinical iodine-deficiency hypothyroidism; E11.10 Type 2 diabetes mellitus with ketoacidosis without coma; Z79.84 Long term (current) use of oral hypoglycemic drugs; Z79.1 Long term (current) use of non-steroidal anti-inflammatories (NSAID); Z79.899 Other long term (current) drug therapy
CPT/HCPCS: 49560; 36415; 80051; 82947; C1781; J0690; J2250; J2405; J2550; J3010

== ENCOUNTER 2022-01-28 11:27 | Emergency (ER) | payer MEDICAID, SELFPAY ==
--- NOTE | ~2022-01-28 | US_ITS ---
EXAMINATION: US VENOUS ULTRASOUND WITH DOPPLER LOWER EXTREMITY, RIGHT CLINICAL INFORMATION: Calf pain, rule out DVT. COMPARISON: None TECHNIQUE: Ultrasound of the deep veins is performed from the hip to the calf with compression sonography and color and pulse Doppler assessment. Spectral analysis with color-flow imaging is performed. FINDINGS: There is normal venous compression and respiratory variation and augmented flow. The visualized common femoral vein, superficial femoral vein, profunda femoral vein, popliteal vein, and the trifurcation region shows no evidence of deep venous thrombosis. There is no significant popliteal fossa cyst. If the patient's symptoms persist, followup ultrasound in 5 days 7 days might be of value to exclude proximal propagation from a non-visualized calf vein. US/US venous duplex LE RT IMPRESSION: No evidence for deep venous thrombosis in the visualized veins of the right lower extremity.
[2022-01-28 11:35] VITALS: BP 136/77; PULSE 84; RESP 18; TEMP 36.4; O2SAT 97; BMI 29.2
--- NOTE | 2022-01-28 15:32 | ED.EXTPRO ---
HPI - Extremity Problem General Chief complaint: Extremity Problem Stated complaint: R leg weakness/bruise Time Seen by Provider: 01/28/22 12:35 History of Present Illness HPI Narrative: Patient complains of waking up last night with a sharp pain in the back of her right leg with some tingling sensation in the lower leg, no weakness no loss of sensation She woke up this morning and there was a small bruised area on just below her knee in the right lower leg Related Data Home Medications Medication Instructions Recorded Confirmed dulaglutide 1.5 mg/0.5 mL 1.5 mg subcut QWEEK 10/11/21 11/18/21 subcutaneous pen injector (Trulicity) insulin glargine 100 unit/mL (3 30 unit subcut QAM 12/17/21 12/17/21 mL) subcutaneous pen (Basaglar KwikPen U-100 Insulin) levothyroxine 75 mcg tablet 1 tab PO DAILY 12/17/21 12/17/21 (Synthroid) Previous Rx's Medication Instructions Recorded ibuprofen 600 mg tablet 600 mg PO Q8H PRN pain #14 tabs 03/16/21 ibuprofen 600 mg tablet 600 mg PO Q6H PRN pain #30 tabs 12/31/21 oxycodone-acetaminophen 5 mg-325 1 tab PO Q4-6H PRN pain, severe 01/12/22 mg tablet (Percocet) #14 tabs Allergies Allergy/AdvReac Type Severity Reaction Status Date / Time shellfish derived Allergy Severe severe Verified 01/12/22 11:03 throat itching Review of Systems Review of Systems: Positive for right leg pain and a bruise Negatives are no fever no chills no dizziness or weakness no fainting no feeling faint no headache no neck pain no chest pain no shortness of breath no abdominal pain no back pain no numbness no weakness no loss of strength no loss of sensation Yes all other systems are reviewed and are negative PMFSH Past Medical History Source: nursing notes reviewed Medical History Arthritis COVID-19 vaccine series completed Diabetes Diabetic acidosis, type II High cholesterol History of COVID-19 Hypothyroid PONV (postoperative nausea and vomiting) Surgical History H/O colonoscopy Hx of lumbar discectomy Hx of umbilical hernia repair Social History Social History Are you a primary palliative care coordinator to a significant other at home: No Do you presently have visiting nurse or other home services: No Alcohol intake: never Patient Tobacco Use Status: Former Tobacco user Quit Date: age 26 Tobacco use type: Cigarette Advance Directives: No Advance Directives Information Provided: No Physical Exam Vital Signs: Vital Signs: Last Vital Signs Temp 97.6 F 01/28/22 11:35 Pulse 84 01/28/22 11:35 Resp 18 01/28/22 11:35 BP 136/77 01/28/22 11:35 Pulse Ox 97 01/28/22 11:35 BMI result Body Mass Index 29.2 General appearance no distress Head is normocephalic atraumatic Neck is supple Respiratory no distress Chest clear to auscultation bilateral no pleuritic discomfort Heart no murmur Abdomen soft nontender Extremities full range of motion x4, gait is normal The right leg had tenderness behind the knee and in the calf area, there is no obvious swelling there was some bruising just distal to the popliteal area, but no wounds and neurovascular intact distal with full strength and sensation symmetric with the other side and dorsalis pedis pulse was normal Course Course Course Narrative: Patient with the complaint that she woke up last night with pain in her right leg and tingling sensation which has since gone and noted in the morning that there was a very small bruise around the area of pain Nurse's notes stated she had weakness and numbness but when I spoke with her she said she only had a tingling sensation never had any motor weakness never had any difficulty moving her foot never had any trouble walking and she never lost sensation but she did have an electric shock/tingling sensation briefly There was no sign of any infection no redness or warmth, ultrasound was negative, circulation was normal Patient is formed at may have been a small rupture of a superficial varicose vein but at this time there is no sign of any dangerous or infected condition, no blood clot Discharge Plan Discharge Clinical Impression: Leg pain, right Patient Disposition: Home, Self-Care Additional Instructions: Ultrasound did not show any blood clot Physical exam did not show any sign of infection, there is no weakness or loss of sensation, circulation was good and normal No sign of any dangerous infection or condition now Follow with your doctor Return any time for increased swelling, redness, increased pain any worse condition or any concerns Prescriptions: No Action ibuprofen 600 mg tablet 600 mg PO Q8H PRN (Reason: pain) Qty: 14 0RF levothyroxine [Synthroid] 75 mcg tablet 1 tab PO DAILY Juan Antoniorahar KellyKofi U-100 Insulin 100 unit/mL (3 mL) insulin pen 30 unit subcut QAM ibuprofen 600 mg tablet 600 mg PO Q6H PRN (Reason: pain) Qty: 30 0RF Trulicity 1.5 mg/0.5 mL pen injector 1.5 mg subcut QWEEK oxycodone-acetaminophen [Percocet] 5-325 mg tablet 1 tab PO Q4-6H PRN (Reason: pain, severe) Qty: 14 0RF Rx Instructions: Partial Fill upon patient request. Interventions: ED Discharge Assessment Last Done: 01/28/22 15:37 Discharge Date/Time: 01/28/22 15:38
== END 2022-01-28 15:38 | disposition home or self-care (01) ==
PROVIDERS: Emergency Provider Emergency Medicine; PCP Internal Medicine
DX: M79.661 Pain in right lower leg (principal); E11.9 Type 2 diabetes mellitus without complications; E78.5 Hyperlipidemia, unspecified
CPT/HCPCS: 93971; 99283; 99284

== ENCOUNTER 2022-07-18 11:04 | Emergency (ER) | payer MEDICAID, SELFPAY ==
[2022-07-18 11:40] VITALS: BP 161/72; PULSE 88; RESP 18; TEMP 37.2; O2SAT 95; BMI 28.3
--- NOTE | 2022-07-18 14:26 | ED.URI ---
HPI - URI/Sore Throat General Chief Complaint: Upper Respiratory Symptoms Stated Complaint: Cough Time Seen by Provider: 07/18/22 14:19 Source: patient Mode of arrival: ambulatory History of Present Illness HPI Narrative: 57-year-old female with a past medical history of arthritis, diabetes, HLD, hypothyroid, recurrent umbilical/incisional hernia s/p repair presenting to the ED complaining of nonproductive cough & nasal congestion/rhinorrhea x5 days. Reports sick contact that is currently admitted to our hospital for similar sx. Reports persistent cough is affecting abdominal hernia which has been increasingly painful. Denies known fever, chills, nausea/vomiting, diarrhea/constipation, chest pain/shortness of breath, pedal edema, recent travel, history of clots MD elicited complaint: cough, rhinorrhea and nasal congestion Onset (ago): day(s) Related Data Home Medications Medication Instructions Recorded Confirmed dulaglutide 1.5 mg/0.5 mL 1.5 mg subcut QWEEK 10/11/21 11/18/21 subcutaneous pen injector (Trulicity) insulin glargine 100 unit/mL (3 30 unit subcut QAM 12/17/21 12/17/21 mL) subcutaneous pen (Basaglar KwikPen U-100 Insulin) levothyroxine 75 mcg tablet 1 tab PO DAILY 12/17/21 12/17/21 (Synthroid) Previous Rx's Medication Instructions Recorded ibuprofen 600 mg tablet 600 mg PO Q8H PRN pain #14 tabs 03/16/21 ibuprofen 600 mg tablet 600 mg PO Q6H PRN pain #30 tabs 12/31/21 oxycodone-acetaminophen 5 mg-325 1 tab PO Q4-6H PRN pain, severe 01/12/22 mg tablet (Percocet) #14 tabs Allergies Allergy/AdvReac Type Severity Reaction Status Date / Time shellfish derived Allergy Severe severe Verified 07/18/22 11:40 throat itching Review of Systems Review of Systems: Constitutional: No Fever, No Chills ENT/Mouth: No Ear Pain, + Nasal Congestion, No Sinus Pain, No Hoarseness, No sore throat, + Rhinorrhea, No Swallowing Difficulty Cardiovascular: No Chest Pain, No SOB Respiratory: + Cough, No Sputum, No Wheezing Gastrointestinal: No Nausea, No Vomiting, No Diarrhea, No Constipation, + Abdominal pain Genitourinary: No Dysuria, No Urinary Frequency, No Hematuria, No Urinary Incontinence/retention, No Flank Pain Musculoskeletal: No joint pain, No Myalgias, No Joint Swelling Skin: No Skin Lesions, No rash Neuro: No Weakness, No Numbness, No Paresthesias Yes all other systems are reviewed and are negative Constitutional: Constitutional: Reports as per [facility] Past Medical History Attestation statement: The following information was validated with the patient. Medical History Arthritis COVID-19 vaccine series completed Diabetes Diabetic acidosis, type II High cholesterol History of COVID-19 Hypothyroid PONV (postoperative nausea and vomiting) Recurrent hernia Surgical History H/O colonoscopy Hx of lumbar discectomy Hx of umbilical hernia repair Social History Social History Are you a primary medical care manager to a significant other at home: No Do you presently have visiting nurse or other home services: No Alcohol intake: never Patient Tobacco Use Status: Former Tobacco user Quit Date: age 26 Tobacco use type: Cigarette Advance Directives: No Advance Directives Information Provided: No Physical Exam Vital Signs: Vital Signs: Last Vital Signs Temp 98.9 F 07/18/22 11:40 Pulse 88 07/18/22 11:40 Resp 18 07/18/22 11:40 BP 161/72 H 07/18/22 11:40 Pulse Ox 95 07/18/22 11:40 O2 Del Method 07/18/22 11:40 BMI result Body Mass Index 28.3 Const: General: cooperative, healthy appearing and no acute distress Orientation/consciousness: patient oriented x3 Limitations: no limitations HEENT: Head: Yes normal to inspection and Yes atraumatic Ears: hearing grossly normal bilaterally General nose exam: Normal external nose present Face and sinus: Yes normal facial exam Eyes: General: appearance normal, both eyes and all related structures EOM: EOMs intact bilaterally Neck: Neck: Yes normal visual inspection and Yes no meningeal signs Resp: Effort & Inspection: normal respiratory effort, Actively coughing Quality: actively coughing and no respiratory distress Auscultation: clear to auscultation bilaterally, no crackles, no rales and no rhonchi Cardio: Rate: regular rate Heart sounds: S1 normal heart sound present and S2 normal heart sound present GI: Inspection: Yes normal to inspection and Yes scar (old surgical scars noted) Palpation (GI): Tenderness to palpation present (GI) periumbilically (> right periumbilical); with no rebound tenderness and no guarding Skin: Rashes: no rashes Wounds: no wounds Neuro: General: patient oriented x3, tone normal and no meningeal signs Gait exam (Neuro): Normal gait present Extrem: General: Yes normal to inspection Course Course Course Narrative: XR chest 1V IMPRESSION: *? Clear lungs. -influenza A positive -1627--no leukocytosis. AST/ALT chronically elevated CT abdomen pelvis w IV con IMPRESSION: 1.? Status post ventral mesh abdominal wall hernia repair. Slight enlargement of the hernia at or just below the level of the umbilicus containing fat and nondilated loops of small bowel. 2.? No acute intra-abdominal process. 3.? Mild hepatomegaly and hepatic steatosis. 4.? Small nonobstructing bilateral renal calculi. 5.? Colonic diverticulosis. No evidence of acute diverticulitis. ? >> no evidence of obstruction. Will discharge patient home with p.o. prednisone, Hycodan, and close general surgery/PCP follow-up Medications Administered Discontinued Medications Generic Name Dose Route Start Last Admin Trade Name Freq PRN Reason Stop Dose Admin Sodium Chloride 1,000 mls @ 999 mls/hr 07/18/22 14:45 07/18/22 15:02 Ns IV 07/18/22 15:45 999 mls/hr .Q1H1M JEANETTE Administration Iohexol 100 ml 07/18/22 15:41 07/18/22 15:42 Iohexol 350 Mg/Ml 100 Ml Infus..Btl IV 07/18/22 15:42 85 ml ONCE ONE Administration Ketorolac Tromethamine 15 mg 07/18/22 14:36 07/18/22 14:57 Ketorolac Tromethamine 15 Mg/Ml Vial IVPUSH 07/18/22 14:37 15 mg ONCE ONE Administration Medical Decision Making Medical Decision Making [facility] Narrative: 57-year-old female with a past medical history of arthritis, diabetes, HLD, hypothyroid, recurrent umbilical/incisional hernia s/p repair presenting to the ED complaining of nonproductive cough & nasal congestion/rhinorrhea x5 days. Reports persistent cough is affecting abdominal hernia which has been increasingly painful. On exam vital signs stable, NAD, nontoxic appearing, lungs CTA, persistent cough noted, abdomen soft with periumbilical > tenderness, no rebound or guarding. No appreciable palpable hernia. Concern for viral illness vs bronchitis vs pneumonia vs recurrent hernia versus incarceration/strangulation. Lower suspicion for diverticulitis/appendicitis. Low suspicion for ACS/PE Plan: COVID-19/influenza/RSV testing, CXR, labs, CT AP Differential Diagnosis Differential Diagnoses: The differential diagnosis associated with the presentation includes as above Lab Data Result Diagrams: 07/18/22 14:41 07/18/22 14:41 Labs: Lab Results 07/18/22 07/18/22 07/18/22 Range/Units 13:43 14:41 14:41 WBC 6.9 (4.8-10.8) X10*3/uL RBC 4.58 (4.20-5.50) X10*6/uL Hgb 13.8 (12.0-16.0) g/dl Hct 40.1 (37.0-47.0) % MCV 87.6 (80.0-98.0) fL MCH 30.1 (27.0-33.0) pg MCHC 34.4 (31.0-35.0) g/dl RDW 12.4 (11.0-16.0) % Plt Count 245 (160-400) X10*3/uL MPV 10.6 (9.4-12.3) fL Immature Gran % (Auto) 0.1 (0.0-0.4) % Neut % (Auto) 50.7 (45-73) % Lymph % (Auto) 43.3 H (20-40) % [place] % (Auto) 4.9 (2-11) % Eos % (Auto) 0.7 (0-4) % Baso % (Auto) 0.3 (0-2) % Lymph # (Auto) 3.0 (1.2-4.9) X10*3/uL [place] # (Auto) 0.3 (0.1-1.2) X10*3/uL Eos # (Auto) 0.1 (0.0-0.4) X10*3/uL Baso # (Auto) 0.0 (0.0-0.2) X10*3/uL Abs Immat Gran (auto) 0.01 (0.00-0.03) X10*3/uL Absolute Neuts (auto) 3.5 (2.0-8.3) x10*3/uL Absolute Nucleated RBC 0.000 (0.0-0.012) X10*3/uL Nucleated RBC % (auto) 0.0 (0.0-0.2) /100WBC PT (10.0-13.1) SEC INR (0.9-1.1) Sodium (135-145) mmol/L Potassium (3.3-5.1) mmol/L Chloride (96-108) mmol/L Carbon Dioxide (22-29) mmol/L Anion Gap (12-20) BUN (9-16) mg/dL Creatinine (0.5-1.4) mg/dL Estim Creat Clear Calc Estimated GFR Random Glucose (60-115) mg/dL Lactic Acid 1.1 (0.5-2.0) mmol/L Calcium (8.4-10.2) mg/dL Total Bilirubin (0.0-1.0) mg/dL Direct Bilirubin (0.0-0.5) mg/dL AST (5-31) U/L ALT (0-31) U/L Alkaline Phosphatase (39-117) U/L Total Protein (6.5-8.0) g/dL Albumin (3.5-5.0) g/dL Lipase (8-78) U/L Influenza Type A (PCR) POSITIVE A (Negative) Influenza Type B (PCR) NEGATIVE (Negative) RSV RNA Qual (PCR) NEGATIVE (Negative) SARS-CoV-2 RNA (RT-PCR) NEGATIVE (Negative) 07/18/22 07/18/22 Range/Units 14:41 14:41 WBC (4.8-10.8) X10*3/uL RBC (4.20-5.50) X10*6/uL Hgb (12.0-16.0) g/dl Hct (37.0-47.0) % MCV (80.0-98.0) fL MCH (27.0-33.0) pg MCHC (31.0-35.0) g/dl RDW (11.0-16.0) % Plt Count (160-400) X10*3/uL MPV (9.4-12.3) fL Immature Gran % (Auto) (0.0-0.4) % Neut % (Auto) (45-73) % Lymph % (Auto) (20-40) % [place] % (Auto) (2-11) % Eos % (Auto) (0-4) % Baso % (Auto) (0-2) % Lymph # (Auto) (1.2-4.9) X10*3/uL [place] # (Auto) (0.1-1.2) X10*3/uL Eos # (Auto) (0.0-0.4) X10*3/uL Baso # (Auto) (0.0-0.2) X10*3/uL Abs Immat Gran (auto) (0.00-0.03) X10*3/uL Absolute Neuts (auto) (2.0-8.3) x10*3/uL Absolute Nucleated RBC (0.0-0.012) X10*3/uL Nucleated RBC % (auto) (0.0-0.2) /100WBC PT 12.2 (10.0-13.1) SEC INR 1.1 (0.9-1.1) Sodium 136 (135-145) mmol/L Potassium 4.4 (3.3-5.1) mmol/L Chloride 102 (96-108) mmol/L Carbon Dioxide 25 (22-29) mmol/L Anion Gap 13 (12-20) BUN 11 (9-16) mg/dL Creatinine 0.82 (0.5-1.4) mg/dL Estim Creat Clear Calc 66.7 Estimated GFR > 60 Random Glucose 203 H (60-115) mg/dL Lactic Acid (0.5-2.0) mmol/L Calcium 9.0 D (8.4-10.2) mg/dL Total Bilirubin 0.7 (0.0-1.0) mg/dL Direct Bilirubin 0.2 (0.0-0.5) mg/dL AST 32 H (5-31) U/L ALT 33 H (0-31) U/L Alkaline Phosphatase 92 (39-117) U/L Total Protein 7.0 (6.5-8.0) g/dL Albumin 3.7 (3.5-5.0) g/dL Lipase 23 (8-78) U/L Influenza Type A (PCR) (Negative) Influenza Type B (PCR) (Negative) RSV RNA Qual (PCR) (Negative) SARS-CoV-2 RNA (RT-PCR) (Negative) Discharge Plan Discharge Clinical Impression: Influenza A Patient Disposition: Home, Self-Care Instructions: Influenza (ED), Umbilical Hernia (ED) Prescriptions: No Action ibuprofen 600 mg tablet 600 mg PO Q8H PRN (Reason: pain) Qty: 14 0RF levothyroxine [Synthroid] 75 mcg tablet 1 tab PO DAILY Basaglar KwikPen U-100 Insulin 100 unit/mL (3 mL) insulin pen 30 unit subcut QAM ibuprofen 600 mg tablet 600 mg PO Q6H PRN (Reason: pain) Qty: 30 0RF Trulicity 1.5 mg/0.5 mL pen injector 1.5 mg subcut QWEEK oxycodone-acetaminophen [Percocet] 5-325 mg tablet 1 tab PO Q4-6H PRN (Reason: pain, severe) Qty: 14 0RF Rx Instructions: Partial Fill upon patient request. Referrals: El Rao MD [Primary Care Provider] - El Ellis MD [Physician] - 1 week
[2022-07-18 14:31] LABS: Influenza A PCR POSITIVE (Negative); Influenza B PCR NEGATIVE (Negative); Resp Syncy Virus RNA Qual PCR NEGATIVE (Negative); SARS COV2 PCR INHOUSE NEGATIVE (Negative)
[2022-07-18 15:01] LABS: MANUAL DIFF FLAG NO
[2022-07-18 15:04] LABS: Basophils Percent Auto 0.3 % (0-2); Eosinophils Absolute Auto 0.1 X10*3/uL (0.0-0.4); Eosinophils Percent Auto 0.7 % (0-4); Hematocrit 40.1 % (37.0-47.0); Hemoglobin 13.8 g/dl (12.0-16.0); Imm Gran Abs Auto 0.01 X10*3/uL (0.00-0.03); Imm Gran Pct Auto 0.1 % (0.0-0.4); Lymphocytes Percent Auto 43.3 % (20-40); Mean Corpuscular HGB Conc 34.4 g/dl (31.0-35.0); Mean Corpuscular Hemoglobin 30.1 pg (27.0-33.0); Mean Corpuscular Volume 87.6 fL (80.0-98.0); Mean Platelet Volume 10.6 fL (9.4-12.3); Monocytes Absolute Auto 0.3 X10*3/uL (0.1-1.2); Monocytes Percent Auto 4.9 % (2-11); Neutrophils Absolute Auto 3.5 x10*3/uL (2.0-8.3); Neutrophils Percent Auto 50.7 % (45-73); Platelet Count 245 X10*3/uL (160-400); Red Blood Count 4.58 X10*6/uL (4.20-5.50); Red Cell Distribution Width 12.4 % (11.0-16.0); White Blood Count 6.9 X10*3/uL (4.8-10.8)
[2022-07-18 15:11] LABS: INTERNATIONAL NORM RATIO 1.1 (0.9-1.1); Prothrombin Time 12.2 SEC (10.0-13.1)
[2022-07-18 15:16] LABS: Lactic Acid 1.1 mmol/L (0.5-2.0)
[2022-07-18 15:27] LABS: Alanine Aminotransferase 33 U/L (0-31); Albumin Level 3.7 g/dL (3.5-5.0); Alkaline Phosphatase 92 U/L (39-117); Anion Gap 13 (12-20); Aspartate Amino Transferase 32 U/L (5-31); Bilirubin Direct 0.2 mg/dL (0.0-0.5); Bilirubin Total 0.7 mg/dL (0.0-1.0); Blood Urea Nitrogen 11 mg/dL (9-16); Carbon Dioxide 25 mmol/L (22-29); Chloride 102 mmol/L (96-108); Creatinine Clr Calc Pharmacy 66.7; Estimated Glomerular Filt Rate > 60; Glucose Random 203 mg/dL (60-115); Lipase 23 U/L (8-78); Potassium 4.4 mmol/L (3.3-5.1); Sodium 136 mmol/L (135-145)
== END 2022-07-18 16:59 | disposition home or self-care (01) ==
PROVIDERS: Physician Assistant; Emergency Provider Emergency Medicine; PCP Internal Medicine
DX: J11.1 Influenza due to unidentified influenza virus with other respiratory manifestations (principal); Z20.822 Contact with and (suspected) exposure to COVID-19; E11.9 Type 2 diabetes mellitus without complications; E78.00 Pure hypercholesterolemia, unspecified; Z79.4 Long term (current) use of insulin
CPT/HCPCS: 0241U; 36415; 71045; 74177; 80048; 80076; 83605; 83690; 85025; 85610; 96361; 96374; 99283; 99284; J1885; Q9967

== ENCOUNTER → 2022-09-07 14:31 | Outpatient (BNVA) | payer MEDICAID, SELFPAY | PROVIDERS: PCP Internal Medicine; Visit Provider Surgery | DX: K43.9 Ventral hernia without obstruction or gangrene (principal) | CPT/HCPCS: 99212 ==

== ENCOUNTER 2022-09-27 08:22 | Day surgery (SDC) | payer MEDICAID, SELFPAY ==
[2022-09-22 13:28] VITALS: BMI 33.2
--- NOTE | 2022-09-26 10:47 | HO.ANESPROP2 ---
Documented by User: Priscila Gallagher NP 09/26/22 10:51 HPI - Anesthesia Eval Consult details Narrative: 57yo F for Hernia Repair ParaUmbilical s/p same 12/2021 with GA-ETT 7 PMFSH Active Problems Active Problems: All Active Problems (Updated 09/07/22 @ 14:59 by El Ellis MD) COVID-19 (Acute) Hyperglycemia (Acute) Ventral hernia (Acute) Recurrent hernia (Acute) Past Medical History Medical History Arthritis COVID-19 vaccine series completed Diabetes Diabetic acidosis, type II High cholesterol History of COVID-19 Hypothyroid PONV (postoperative nausea and vomiting) Recurrent hernia Ventral hernia Surgical History Surgical History H/O colonoscopy Hx of lumbar discectomy Hx of umbilical hernia repair History of Problems with Anesthesia: No Social History Social History Are you a primary director of patient care to a significant other at home: No Do you presently have visiting nurse or other home services: No Alcohol intake: never Patient Tobacco Use Status: Former Tobacco user Quit Date: age 26 Tobacco use type: Cigarette Use of substances other than those prescribed or required for medical reasons: No Have you been hit, kicked, punched, or otherwise hurt by someone within the past year? If so, by whom?: No Are you DNR?: No Advance Directives: No Advance Directives Information Provided: Yes Advance Directives on File: No Recently lost weight without trying: No Eating poorly because of decreased appetite: No Nutrition Risks: No Nutritional Risk Meds Allergies Allergy/AdvReac Type Severity Reaction Status Date / Time shellfish derived Allergy Severe severe Verified 09/27/22 08:57 throat itching Home Medications Medication Instructions Recorded Confirmed Last Taken Type dulaglutide 1.5 mg/0.5 mL 1.5 mg subcut QWEEK 10/11/21 09/27/22 Unknown History subcutaneous pen injector (Trulicity) insulin glargine 100 unit/mL (3 30 unit subcut QAM 12/17/21 09/27/22 09/27/22 08:00 History mL) subcutaneous pen (Basaglar 15 units KwikPen U-100 Insulin) levothyroxine 75 mcg tablet 1 tab PO DAILY 12/17/21 09/27/22 09/27/22 07:00 History (Synthroid) Exam Exam Date and Time: September 26, 2022 1047 Height,Weight and Vital Signs: Height 5 ft 1 in Weight 79.832 kg Pertinent Lab Results Pertinent Lab Results: Laboratory Tests 07/18/22 07/18/22 14:41 14:41 WBC 6.9 Hgb 13.8 Hct 40.1 Plt Count 245 Sodium 136 Potassium 4.4 Chloride 102 Carbon Dioxide 25 BUN 11 Creatinine 0.82 Narrative Narrative: EKG 11/2021 Vent. Rate : 073 BPM ? ? Atrial Rate : 073 BPM ?? P-R Int : 148 ms? QRS Dur : 072 ms ? ? QT Int : 404 ms ? ? ? P-R-T Axes : 049 080 043 degrees ?? QTc Int : 445 ms ? Normal sinus rhythm Normal ECG When compared with ECG of 19-AUG-2021 16:06, No significant change was found Assessment and Plan Assessment Anesthesia Assessment: Chart Reviewed Final Anesthetic Review History of Problems with Anesthesia: No Documented by User: Roxy Garcia MD 09/27/22 10:01 COUNTS INCLUDE 234 BEDS AT THE [facility] Past Medical History Medical History Arthritis COVID-19 vaccine series completed Diabetes Diabetic acidosis, type II High cholesterol History of COVID-19 Hypothyroid PONV (postoperative nausea and vomiting) Recurrent hernia Ventral hernia Patient : No Family History Family history of problems with anesthesia: No Surgical History Surgical History H/O colonoscopy Hx of lumbar discectomy Hx of umbilical hernia repair Social History Social History Are you a primary director of patient care to a significant other at home: No Do you presently have visiting nurse or other home services: No Alcohol intake: never Patient Tobacco Use Status: Former Tobacco user Quit Date: age 26 Tobacco use type: Cigarette Use of substances other than those prescribed or required for medical reasons: No Have you been hit, kicked, punched, or otherwise hurt by someone within the past year? If so, by whom?: No Are you DNR?: No Advance Directives: No Advance Directives Information Provided: Yes Advance Directives on File: No Recently lost weight without trying: No Eating poorly because of decreased appetite: No Nutrition Risks: No Nutritional Risk Meds Allergies Allergy/AdvReac Type Severity Reaction Status Date / Time shellfish derived Allergy Severe severe Verified 09/27/22 08:57 throat itching Home Medications Medication Instructions Recorded Confirmed Last Taken Type dulaglutide 1.5 mg/0.5 mL 1.5 mg subcut QWEEK 10/11/21 09/27/22 Unknown History subcutaneous pen injector (Trulicity) insulin glargine 100 unit/mL (3 30 unit subcut QAM 12/17/21 09/27/22 09/27/22 08:00 History mL) subcutaneous pen (Basaglar 15 units KwikPen U-100 Insulin) levothyroxine 75 mcg tablet 1 tab PO DAILY 12/17/21 09/27/22 09/27/22 07:00 History (Synthroid) Exam Airway Mallampati Class: III TM Dist: >3cm Neck ROM: Full Heart: RRR Lungs: CTA Assessment and Plan Final Anesthetic Review Family History of Problems with Anesthesia: No ASA Class: III Final Preanesthetic Review: Meds/Allgs Chart Reviewed, Consent Obtained/Reviewed and Anes Risks/Benef Reviewed Patient Risk: Intermediate Procedure Risk: Low Anesthetic Plan Anesthetic Plan: GA Disposition: Standard PACU
[2022-09-27] VITALS (19 sets, daily range): BP systolic 120–164; BP diastolic 66–89; PULSE 78–94; RESP 14–18; TEMP 36.3–36.7; O2SAT 95–99
[2022-09-27 09:12] LABS: Glucose, Whole Blood 323 mg/dL (60-115)
--- NOTE | 2022-09-27 09:18 | MHC.SHP ---
Pre-Procedural Eval Section A Date of Service: 09/27/22 The patient is an INPATIENT: No Changes since office visit: No Cold of Flu in the past 2 weeks, No New Medical Problems, No Changes in Medication and No Patient answered all questions The History & Physical has been completed within 30 days and I have reviewed it.: Yes Section B Chief Complaint: Ventral hernia without obstruction or gangrene Allergies: Allergies Allergy/AdvReac Type Severity Reaction Status Date / Time shellfish derived Allergy Severe severe Verified 09/27/22 08:57 throat itching Plan I have reviewed the history and physical and performed a pertinent physical examination on my patient. No changes have occurred unless specified. Time Spent With Patient Time: Total time managing care of this patient today ____ minutes.
[2022-09-27] MEDS: Lactated Ringers 1,000 ML 100 ML IVCONT ×3 (09:25→21:33)
[2022-09-27] MEDS: Scopolamine 1.5 MG PATCH.TD.3 TRANSDERMA (09:34)
[2022-09-27] MEDS: Insulin Regular, Human 100 UNIT/ML 3 ML VIAL 8 UNIT IVPUSH (09:44)
[2022-09-27 10:09] LABS: Glucose, Whole Blood 266 mg/dL (60-115)
--- NOTE | 2022-09-27 10:27 | PC.NURSE ---
Patient arrived. Blood sugar elevated at 323, patient states shes slightly dizzy . Patient took insulin 15 units this AM at 0800. Dr. Raymundo and Dr. Heaton made aware, both at bedside. New order for IVP insulin. See order. Medication brought by pharmacy, verified with 2 RN's, and administered, tolerated well. Patient aware of signs and symptoms of hypoglycemia, patient monitored by RN at all times in preop. Per Dr. Heaton, recheck sugar in 15 minutes . Blood sugar rechecked as instructed, result 266, patient asymptomatic. Dr. Heaton made aware of result. No new orders, okay to proceed with surgery. Dr. Ellis aware.
--- NOTE | 2022-09-27 11:17 | P.OP_ITS ---
Operative Note Operative Note Date of Service: 09/27/22 Narrative: Preop diagnosis: paraumbilical hernia Postop diagnosis: The same Procedure: Repair of paraumbilical hernia, with Ventralex mesh, lysis of adhesions Surgeon: El Ellis MD assistant professor of anthropology: BRISA Benavidez The patient is a 57-year-old female with a periumbilical hernia. She had a previous repair of a similar hernia with mesh superior to this last year. She had developed another hernia below this and her CAT scan showed hernia inferior to the old mesh with some bowel loops involved. She understood the technique of repair with mesh. She was aware of the risks including but not limited to bleeding, infections, bowel injury, obstruction, occurrence, postop pain, as well as the benefits and alternatives and she had given consent. She was brought to the operating room. She was placed fine under general anesthesia via endotracheal tube. The abdomen was prepped and draped in the usual sterile fashion. A surgical time-out was done. The patient received cefazolin 2 g IV preoperatively I infiltrated my planned line of incision on this area overlying the palpable hernia using lidocaine 1%. I made the incision on the right paramedian area using blade 15. This was carried down with electrocautery through the full- thickness of the skin through the superficial subcutaneous layer. I then proceeded to do gentle blunt dissection my fingers until was able to visualize the hernia sac. I carefully the hernia sac from the rest of the subcutaneous layer. It is noted that the patient had significant truncal obesity, so we had to go through a very thick amount of subcutaneous fat. The hernia sac was very thin so this was opened and was able to see bowel loops adherent to the hernia sac. I had to do a lot of careful dissection to lyse the adhesions tethering the small bowel loops to the hernia sac. This took a little bit of time until able to completely release this. This allowed us to reduce the entire hernia contents to the fascial defect. The fascial defect was measured to be about 4.5 cm wide at its widest dimension. I applied Hernandez clamps on the fascial edges on 4 quadrants. The superior edge of the defect was actually right on the edge of the old mesh. The rest of the fascial margins were free of adhesions and this could be directly visualized. The fascial edges came together easily without tension so I chose a large size Ventralex mesh. This was flattened under the fascial edges. I secured the Prolene side of the mesh to the fascial layer with transfascial sutures using Prolene 2-0 on four quadrants. Once this was done, I proceeded to then pull up the mesh serially and tightened the transfascial sutures one at a time to make sure that we were not catching any bowel loops between the mesh itself and the fascial layer. Once this was confirmed, all four transfascial sutures were tied to secure the mesh. I then trimmed the Prolene straps of the mesh. I closed the fascial layer transversely with a running Maxon 1 stitch, incorporating the Prolene side with a mesh with some of the suture bites. The deep subcutaneous layer was then reapposed with Dexon 3-0 interrupted sutures. Skin closure was achieved with skin malcolm. The area was infiltrated with Marcaine 0.5% for postop analgesia. Dressings were applied. The procedure was completed. The patient tolerated the procedure well. There were no immediate complications. Initial and final counts of sponges and instruments were correct. Estimated blood loss was about 10 cc. The patient was extubated without difficulty and transferred to the recovery room with stable vital signs.
[2022-09-27 11:42] LABS: Glucose, Whole Blood 234 mg/dL (60-115)
[2022-09-27] MEDS: fentaNYL citrate/PF 100 MCG/2 ML VIAL 25 MCG IVPUSH ×4 (11:51→14:35)
[2022-09-27] MEDS: Acetaminophen 1,000 MG/100 ML PIGGYBACK 400 MG IV (11:52)
[2022-09-27] MEDS: ondansetron HCL 4 MG/2 ML VIAL IVPUSH (12:59)
[2022-09-27 13:05] LABS: Glucose, Whole Blood 296 mg/dL (60-115)
[2022-09-27] MEDS: Insulin Lispro 100 UNIT/ML 3 ML VIAL 8 UNIT SUBCUT (13:26)
[2022-09-27] MEDS: oxyCODONE HCl Immed Release 5 MG TABLET PO (14:08)
--- NOTE | 2022-09-27 14:38 | PM.EVENT ---
Event Note Date of Service: 09/27/22 Event Note: seen postop underwent uneventfull repair of a large paraumbilical hernia with mesh earlier has incisional pain, appropriate to postop course blood sugars high in PACU - 294 stable VS will admit for extended stay to monitor blood sugars, pain mgt will consult hospitalist Time Spent With Patient Time: Total time managing care of this patient today ____ minutes.
--- NOTE | 2022-09-27 16:21 | HO.PM.IMCN ---
History of Present Illness Data of Consult Service Date: 09/27/22 Requesting physician: El Ellis Primary Care Provider: El Rao MD HPI Reason for consult: medical management for diabetes 57-year-old female patient with past medical history significant for diabetes mellitus on insulin, hypothyroidism with multiple prior umbilical hernia repair underwent elective large paraumblical hernia repair with mesh and lysis of adhesions, postprocedure patient is doing fine denies abdominal pain, no nausea no vomiting, denies headache, no lightheadedness, no dizziness, no fevers, no chills, not passing flatus, blood sugars in 200s, receiving IV fluids 60 mL/hour and is on 2 L of oxygen with stable finger oximetry. Review of Systems Review of Systems: General no headache, no dizziness, no fever chills. CVS no chest pain, no palpitation. Respiratory no cough, no sob Gastrointestinal no nausea, no vomiting, no abdominal pain No urgency, no frequency Yes all other systems are reviewed and are negative [facility] [place] Medical History Arthritis COVID-19 vaccine series completed Diabetes Diabetic acidosis, type II High cholesterol History of COVID-19 Hypothyroid PONV (postoperative nausea and vomiting) Recurrent hernia Ventral hernia Pertinent family history: no family history of colon cancer Surgical History H/O colonoscopy Hx of lumbar discectomy Hx of umbilical hernia repair Social History Household Members: Family Housing: House Are you a primary urgent care to a significant other at home: No Do you presently have visiting nurse or other home services: No Alcohol intake: never Patient Tobacco Use Status: Never used Tobacco Tobacco use type: Cigarette Use of substances other than those prescribed or required for medical reasons: No Have you been hit, kicked, punched, or otherwise hurt by someone within the past year? If so, by whom?: No Do you feel safe in your current relationship?: Yes Is there a partner from a previous relationship who is making you feel unsafe now?: No Are you made to feel afraid or neglected: No Are you DNR?: No Advance Directives: No Advance Directives Information Provided: Yes Advance Directives on File: No Do you have thoughts of harming others: None Do you have a plan to hurt others: No Plan Recently lost weight without trying: No How much weight loss: Not applicable Eating poorly because of decreased appetite: No Nutrition screen score: 0 Nutrition Risks: No Nutritional Risk Patient : Yes : No Poor oral hygiene: No Meds Allergies Allergy/AdvReac Type Severity Reaction Status Date / Time shellfish derived Allergy Severe severe Verified 09/27/22 08:57 throat itching Active Medications: Current Medications Fluticasone Propionate (Fluticasone Propionate Nasal 16 Gm [place]) 2 spray NOSTRIL-B DAILY [facility] Glucose (Glucose Gel 15 Gm Gel..Gram.) 15 gm PO Q15M PRN; Protocol PRN Reason: per Hypoglycemia Standing Ord. Heparin Sodium (Porcine) (Heparin Sodium,Porcine 5,000 Unit/Ml Vial) 5,000 unit SUBCUT Q8H [facility] Lactated Ringer's (Lr) 1,000 mls @ 60 mls/hr IVCONT .[id number] [facility] Last Admin: 09/27/22 15:59 Dose: 100 mls/hr Dextrose (D10) 250 mls @ 750 mls/hr IV Q15M PRN; Protocol PRN Reason: per Hypoglycemia Standing Ord. Insulin Human Lispro (Insulin Lispro 100 Unit/Ml 3 Ml Vial) 0 unit SUBCUT QIDACHS [facility]; Protocol Levothyroxine Sodium (Levothyroxine Sodium 75 Mcg Tablet) 75 mcg PO DAILY [facility] Morphine Sulfate (Morphine Sulfate 2 Mg/Ml Cartridge) 2 mg IVPUSH Q3H PRN; Protocol PRN Reason: Pain, Severe (Pain Scale 7-10) Ondansetron HCl (Ondansetron Hcl 4 Mg/2 Ml Vial) 4 mg IVPUSH Q8H PRN PRN Reason: Nausea Oxycodone HCl (Oxycodone Hcl Immed Release 5 Mg Tablet) 10 mg PO Q4H PRN PRN Reason: Pain, Moderate (Pain Scale 4-6 Sodium Chloride (0.9 % Sodium Chloride Flush 3 Ml Syringe) 3 ml IVFLUSH QSHIFT [facility] Last Admin: 09/27/22 16:01 Dose: Not Given Home Medications Medication Instructions Recorded Confirmed Last Taken Type dulaglutide 1.5 mg/0.5 mL 1.5 mg subcut QWEEK 03/21/22 03/07/23 Unknown History subcutaneous pen injector (Trulicity) insulin glargine 100 unit/mL (3 30 unit subcut QAM 12/17/21 09/27/22 09/27/22 08:00 History mL) subcutaneous pen (Basaglar 15 units KwikPen U-100 Insulin) levothyroxine 75 mcg tablet 1 tab PO DAILY 12/17/21 09/27/22 09/27/22 07:00 History (Synthroid) Physical Exam Vital Signs and Narrative: Vital Signs: Last Vital Signs Temp 97.4 F 09/27/22 15:41 Pulse 78 09/27/22 15:41 Resp 18 09/27/22 15:41 BP 149/82 H 09/27/22 15:41 Pulse Ox 97 09/27/22 15:41 O2 Del Method 09/27/22 15:41 O2 Flow Rate 2 09/27/22 15:41 BMI result Body Mass Index 33.2 Const: Other: General awake alert x3, resting comfortably, in no acute distress. Neck supple no JVD. CVS regular rate rhythm, Respiratory lungs clear to auscultation, no respiratory distress, no rhonchi. Gastrointestinal abdomen soft, nontender, bowel sounds audible, no guarding , no rigidity, abdominal binder in place. Extremities no edema. Neuro nonfocal Skin no rash psych appropriate affect Results Labs Labs: Laboratory Results - last 24 hr 09/27/22 09/27/22 09/27/22 09:08 10:06 11:38 POC Glucose 323 H 266 H 234 H 09/27/22 13:01 POC Glucose 296 H Assessment and Plan (1) Hyperglycemia: Status: Acute Plan 57-year-old female patient with past medical history of diabetes mellitus on insulin, hypothyroidism underwent elective para umbilical hernia repair. diabetes mellitus with hyperglycemia continue diabetic diet will place on insulin sliding scale check point of a q.i.d. a.c. and resume low basal insulin hypothyroidism resume Synthroid status post repair of paramedical hernia with mesh/lysis of addition postoperative day 0 on diabetic diet, encourage incentive spirometry out of bed to chair, wean oxygen treatment plan as per General surgery DVT prophylaxis on heparin thank you for allowing to participate in the care of this patient will continue to follow the patient along with you. Time Spent With Patient Time: Total time managing care of this patient today ____ minutes.
[2022-09-27 16:24] LABS: Glucose, Whole Blood 221 mg/dL (60-115)
[2022-09-27] MEDS: Insulin Lispro 100 UNIT/ML 3 ML VIAL SUBCUT ×2 (17:12→21:30)
[2022-09-27 20:55] LABS: Glucose, Whole Blood 352 mg/dL (60-115)
[2022-09-27] MEDS: 0.9 % Sodium Chloride Flush 3 ML SYRINGE IVFLUSH (21:30)
[2022-09-27] MEDS: oxyCODONE HCl Immed Release 5 MG TABLET 10 MG PO (21:31)
--- NOTE | 2022-09-27 21:35 | PC.NURSE ---
Pt POC is [address] Lam notified, Insulin coverage given per sliding scale, will recheck in 2 hours. Pt aware of plan of care.
--- NOTE | 2022-09-27 23:00 | PC.NURSE ---
Poc rechecked for 391, pt is asymptomatic, resting comfortably, will recheck in [address] Lam notified, pt aware of plan of care.
[2022-09-27 23:03] LABS: Glucose, Whole Blood 391 mg/dL (60-115)
[2022-09-28 00:45] LABS: Glucose, Whole Blood 306 mg/dL (60-115)
[2022-09-28 02:15] LABS: Glucose, Whole Blood 302 mg/dL (60-115)
[2022-09-28 03:19] VITALS: BP 113/59; PULSE 57; RESP 18; TEMP 36.6; O2SAT 97
[2022-09-28 06:04] LABS: Hematocrit 36.9 % (37.0-47.0); Hemoglobin 12.3 g/dl (12.0-16.0); Mean Corpuscular HGB Conc 33.3 g/dl (31.0-35.0); Mean Corpuscular Hemoglobin 30.1 pg (27.0-33.0); Mean Corpuscular Volume 90.2 fL (80.0-98.0); Mean Platelet Volume 11.6 fL (9.4-12.3); Platelet Count 282 X10*3/uL (160-400); Red Blood Count 4.09 X10*6/uL (4.20-5.50); Red Cell Distribution Width 12.7 % (11.0-16.0)
[2022-09-28 06:49] LABS: Anion Gap 14 (12-20); Blood Urea Nitrogen 13 mg/dL (9-16); Calcium 9.1 mg/dL (8.4-10.2); Carbon Dioxide 26 mmol/L (22-29); Chloride 101 mmol/L (96-108); Creatinine Clr Calc Pharmacy 61.2; Estimated Glomerular Filt Rate 59; Glucose Random 320 mg/dL (60-115); Potassium 5.1 mmol/L (3.3-5.1); Sodium 136 mmol/L (135-145)
[2022-09-28 07:24] VITALS: BP 122/64; PULSE 61; RESP 17; TEMP 36.7; O2SAT 96
[2022-09-28 07:31] LABS: Glucose, Whole Blood 284 mg/dL (60-115)
[2022-09-28] MEDS: Levothyroxine Sodium 75 MCG TABLET PO (07:51)
[2022-09-28] MEDS: Insulin Glargine,Hum.rec.anlog 100 UNIT/ML 10 ML VIAL 25 UNIT SUBCUT (07:51)
[2022-09-28] MEDS: Insulin Lispro 100 UNIT/ML 3 ML VIAL SUBCUT ×2 (07:51→11:49)
[2022-09-28] MEDS: Heparin Sodium,Porcine 5,000 UNIT/ML VIAL 5000 UNIT SUBCUT (07:51)
[2022-09-28] MEDS: 0.9 % Sodium Chloride Flush 3 ML SYRINGE IVFLUSH (07:52)
--- NOTE | 2022-09-28 08:19 | P.PNGS_ITS ---
Subjective Subjective Date of Service: 09/28/22 Interval history: says she had no problems overnight tolerating diet pain control better says she is ready to go home Physical Exam Vital Signs: Vital Signs: Last Vital Signs Temp 98.0 F 09/28/22 07:24 Pulse 61 09/28/22 07:24 Resp 17 09/28/22 07:24 BP 122/64 09/28/22 07:24 Pulse Ox 96 09/28/22 07:24 O2 Del Method 09/28/22 07:24 O2 Flow Rate 1 09/28/22 03:19 BMI result Body Mass Index 33.2 Const: General: comfortable and no acute distress Resp: Effort & Inspection: normal respiratory effort Cardio: Rate: regular rate GI: Other: dressings dry Palpation (GI): Soft to palpation, not firm and no guarding Objective Data Active Medications Fluticasone Propionate (Fluticasone Propionate Nasal 16 Gm [place]) 2 spray NOSTRIL-B DAILY [facility] Last Admin: 09/28/22 07:53 Dose: Not Given Documented By: GIOVANNI Non-Admin Reason: Patient Refused Glucose (Glucose Gel 15 Gm Gel..Gram.) 15 gm PO Q15M PRN; Protocol PRN Reason: per Hypoglycemia Standing Ord. Heparin Sodium (Porcine) (Heparin Sodium,Porcine 5,000 Unit/Ml Vial) 5,000 unit SUBCUT Q8H [facility] Last Admin: 09/28/22 07:51 Dose: 5,000 unit Documented By: GIOVANNI Lactated Ringer's (Lr) 1,000 mls @ 60 mls/hr IVCONT .[id number] [facility] Last Admin: 09/27/22 21:33 Dose: 100 mls/hr Documented By: PRINCESS Dextrose (D10) 250 mls @ 750 mls/hr IV Q15M PRN; Protocol PRN Reason: per Hypoglycemia Standing Ord. Insulin Glargine (Insulin Glargine,Hum.Rec.Anlog 100 Unit/Ml 10 Ml Vial) 25 unit SUBCUT DAILY [facility] Last Admin: 09/28/22 07:51 Dose: 25 unit Documented By: GIOVANNI Insulin Human Lispro (Insulin Lispro 100 Unit/Ml 3 Ml Vial) 0 unit SUBCUT QIDACHS [facility]; Protocol Last Admin: 09/28/22 07:51 Dose: 6 unit Documented By: GIOVANNI Levothyroxine Sodium (Levothyroxine Sodium 75 Mcg Tablet) 75 mcg PO DAILY [facility] Last Admin: 09/28/22 07:51 Dose: 75 mcg Documented By: GIOVANNI Morphine Sulfate (Morphine Sulfate 2 Mg/Ml Cartridge) 2 mg IVPUSH Q3H PRN; Protocol PRN Reason: Pain, Severe (Pain Scale 7-10) Ondansetron HCl (Ondansetron Hcl 4 Mg/2 Ml Vial) 4 mg IVPUSH Q8H PRN PRN Reason: Nausea Oxycodone HCl (Oxycodone Hcl Immed Release 5 Mg Tablet) 10 mg PO Q4H PRN PRN Reason: Pain, Moderate (Pain Scale 4-6 Last Admin: 09/27/22 21:31 Dose: 10 mg Documented By: PRINCESS Sodium Chloride (0.9 % Sodium Chloride Flush 3 Ml Syringe) [facility] Last Admin: 09/28/22 07:52 Dose: 3 ml Documented By: GIOVANNI Labs 09/28/22 05:21 09/28/22 05:21 Labs: Laboratory Results - last 24 hr 09/27/22 09/27/22 09/27/22 09:08 10:06 11:38 MCV MCH MCHC RDW Plt Count MPV Absolute Nucleated RBC Nucleated RBC % (auto) Anion Gap Estim Creat Clear Calc Estimated GFR POC Glucose 323 H 266 H 234 H Random Glucose Calcium 09/27/22 09/27/22 09/27/22 13:01 16:14 20:47 MCV MCH MCHC RDW Plt Count MPV Absolute Nucleated RBC Nucleated RBC % (auto) Anion Gap Estim Creat Clear Calc Estimated GFR POC Glucose 296 H 221 H 352 H* Random Glucose Calcium 09/27/22 09/28/22 09/28/22 22:54 00:41 02:12 MCV MCH MCHC RDW Plt Count MPV Absolute Nucleated RBC Nucleated RBC % (auto) Anion Gap Estim Creat Clear Calc Estimated GFR POC Glucose 391 H* 306 H 302 H Random Glucose Calcium 09/28/22 09/28/22 09/28/22 05:21 05:21 07:23 MCV 90.2 MCH 30.1 MCHC 33.3 RDW 12.7 Plt Count 282 MPV 11.6 Absolute Nucleated RBC 0.000 Nucleated RBC % (auto) 0.0 Anion Gap 14 Estim Creat Clear Calc 61.2 Estimated GFR 59 POC Glucose 284 H Random Glucose 320 H Calcium 9.1 Procedures Date of Service Date of Service: 09/28/22 Progress Note: A&P Assessment and plan (1) Hyperglycemia: Status: Acute (2) Ventral hernia: Status: Acute Assessment and Plan: s/p repair with mesh looks well \blood glucose still high will discuss with Hospitalist - re discharge? otherwise with good pain control good GI function Time Spent With Patient Time: Total time managing care of this patient today ____ minutes. Quality Stroke Does the patient have a stroke diagnosis?: No VTE Prior VTE?: No VTE Risk Level:: Medical - moderate - high VTE Device Contraindication: N/A - Device Ordered VTE Drug Contraindication: N/A - Med Ordered
[2022-09-28] MEDS: oxyCODONE HCl Immed Release 5 MG TABLET 10 MG PO ×2 (08:20→12:34)
--- NOTE | 2022-09-28 08:50 | PM.EVENT ---
Event Note Date of Service: 09/28/22 Event Note: Discussed with hospitalist service Blood glucose was elevated this morning as the patient had not received any her insulin yet She is to continue with same medications for diabetes I have reinforced with her instructions She is also to see her primary care physician to review her diabetes medications She states he is ready to be discharged Time Spent With Patient Time: Total time managing care of this patient today ____ minutes.
[2022-09-28 09:36] VITALS: O2SAT 96
--- NOTE | 2022-09-28 09:36 | MHC.CM.PN ---
[facility] ordered by
--- NOTE | 2022-09-28 09:37 | P.PNIM_ITS ---
Subjective Subjective Date of Service: 09/28/22 Interval History: good pain control offers no acute complaints, tolerating diet with no nausea, no vomiting noted to have elevated blood sugars this morning likely due to taking half dose of Lantus yesterday morning. Review of Systems Review of Systems: Yes all other systems are reviewed and are negative Physical Exam Vital Signs: Vital Signs: Last Vital Signs Temp 98.0 F 09/28/22 07:24 Pulse 61 09/28/22 07:24 Resp 17 09/28/22 07:24 BP 122/64 09/28/22 07:24 Pulse Ox 96 09/28/22 07:24 O2 Del Method 09/28/22 07:24 O2 Flow Rate 1 09/28/22 03:19 BMI result Body Mass Index 33.2 Const: Other: General? awake alert x3, resting comfortably, in no acute distress.? Neck supple no JVD. CVS? regular rate rhythm, Respiratory lungs clear to auscultation, no respiratory distress,? no rhonchi. Gastrointestinal abdomen soft, nontender, bowel sounds audible, no guarding , no rigidity, abdominal binder in place. Extremities no edema. Neuro nonfocal Skin no rash psych appropriate affect Objective Data Active Medications Fluticasone Propionate (Fluticasone Propionate Nasal 16 Gm [place]) 2 spray NOSTRIL-B DAILY [facility] Last Admin: 09/28/22 07:53 Dose: Not Given Documented By: GIOVANNI Non-Admin Reason: Patient Refused Glucose (Glucose Gel 15 Gm Gel..Gram.) 15 gm PO Q15M PRN; Protocol PRN Reason: per Hypoglycemia Standing Ord. Heparin Sodium (Porcine) (Heparin Sodium,Porcine 5,000 Unit/Ml Vial) 5,000 unit SUBCUT Q8H [facility] Last Admin: 09/28/22 07:51 Dose: 5,000 unit Documented By: GIOVANNI Lactated Ringer's (Lr) 1,000 mls @ 60 mls/hr IVCONT .[id number] [facility] Last Admin: 09/27/22 21:33 Dose: 100 mls/hr Documented By: PRINCESS Dextrose (D10) 250 mls @ 750 mls/hr IV Q15M PRN; Protocol PRN Reason: per Hypoglycemia Standing Ord. Insulin Glargine (Insulin Glargine,Hum.Rec.Anlog 100 Unit/Ml 10 Ml Vial) 25 unit SUBCUT DAILY [facility] Last Admin: 09/28/22 07:51 Dose: 25 unit Documented By: GIOVANNI Insulin Human Lispro (Insulin Lispro 100 Unit/Ml 3 Ml Vial) 0 unit SUBCUT QIDACHS [facility]; Protocol Last Admin: 09/28/22 07:51 Dose: 6 unit Documented By: GIOVANNI Levothyroxine Sodium (Levothyroxine Sodium 75 Mcg Tablet) 75 mcg PO DAILY [facility] Last Admin: 09/28/22 07:51 Dose: 75 mcg Documented By: GIOVANNI Morphine Sulfate (Morphine Sulfate 2 Mg/Ml Cartridge) 2 mg IVPUSH Q3H PRN; Protocol PRN Reason: Pain, Severe (Pain Scale 7-10) Ondansetron HCl (Ondansetron Hcl 4 Mg/2 Ml Vial) 4 mg IVPUSH Q8H PRN PRN Reason: Nausea Oxycodone HCl (Oxycodone Hcl Immed Release 5 Mg Tablet) 10 mg PO Q4H PRN PRN Reason: Pain, Moderate (Pain Scale 4-6 Last Admin: 09/28/22 08:20 Dose: 10 mg Documented By: GIOVANNI Sodium Chloride (0.9 % Sodium Chloride Flush 3 Ml Syringe) [facility] Last Admin: 09/28/22 07:52 Dose: 3 ml Documented By: GIOVANNI Labs 09/28/22 05:21 09/28/22 05:21 Labs: Laboratory Results - last 24 hr 09/27/22 09/27/22 09/27/22 10:06 11:38 13:01 MCV MCH MCHC RDW Plt Count MPV Absolute Nucleated RBC Nucleated RBC % (auto) Anion Gap Estim Creat Clear Calc Estimated GFR POC Glucose 266 H 234 H 296 H Random Glucose Calcium 09/27/22 09/27/22 09/27/22 16:14 20:47 22:54 MCV MCH MCHC RDW Plt Count MPV Absolute Nucleated RBC Nucleated RBC % (auto) Anion Gap Estim Creat Clear Calc Estimated GFR POC Glucose 221 H 352 H* 391 H* Random Glucose Calcium 09/28/22 09/28/22 09/28/22 00:41 02:12 05:21 MCV 90.2 MCH 30.1 MCHC 33.3 RDW 12.7 Plt Count 282 MPV 11.6 Absolute Nucleated RBC 0.000 Nucleated RBC % (auto) 0.0 Anion Gap Estim Creat Clear Calc Estimated GFR POC Glucose 306 H 302 H Random Glucose Calcium 09/28/22 09/28/22 05:21 07:23 MCV MCH MCHC RDW Plt Count MPV Absolute Nucleated RBC Nucleated RBC % (auto) Anion Gap 14 Estim Creat Clear Calc 61.2 Estimated GFR 59 POC Glucose 284 H Random Glucose 320 H Calcium 9.1 Assessment and Plan (1) Hyperglycemia: Status: Acute Plan 57-year-old female patient with past medical history of diabetes mellitus on insulin, hypothyroidism underwent? elective para umbilical hernia repair. ?diabetes mellitus with hyperglycemia ? elevated blood sugars in 300s this morning, continue diabetic diet, resume Lantus home dose continue insulin sliding scale, point of a q.i.d. a.c. ?hypothyroidism cont. Synthroid ?status post repair of paramedical hernia with mesh/lysis of addition postoperative day 1 ?on diabetic diet, encourage incentive spirometry out of bed to chair, wean oxygen,dc ivf ?treatment plan as per General surgery ?DVT prophylaxis on heparin disposition as per surgery. Time Spent With Patient Time: Total time managing care of this patient today ____ minutes. Quality Stroke Does the patient have a stroke diagnosis?: No VTE Prior VTE?: No VTE Risk Level:: Medical - moderate - high VTE Device Contraindication: N/A - Device Ordered VTE Drug Contraindication: N/A - Med Ordered
--- NOTE | 2022-09-28 09:38 | MHC.CM.PN ---
pt lives with sister and niece pt is covid vx x 2 has own ride home pt is dcd toay no skilled servceis ordered by
[2022-09-28 10:01] VITALS: O2SAT 97
--- NOTE | 2022-09-28 10:18 | HO.POSTANES ---
Post Anesthesia Evaluation Post Anesthesia Evaluation Vital Signs: Vital Signs Temp Pulse Resp BP Pulse Ox O2 Del Method O2 Flow Rate 09/28/22 09:36 96 Room Air 09/28/22 09:29 Room Air 09/28/22 07:24 98.0 F 61 17 122/64 96 Room Air 09/28/22 03:19 97.8 F 57 18 113/59 L 97 Nasal Cannula 1 Anesthesia: General Mental Status: Awake Pain Control: Satisfactory Nausea/Vomiting: Mild Hydration: Adequate Anesthesia-Related Issues: No Anes. Related Issues
[2022-09-28 10:19] LABS: Glucose, Whole Blood 326 mg/dL (60-115)
[2022-09-28 11:24] LABS: Glucose, Whole Blood 307 mg/dL (60-115)
--- NOTE | 2022-09-28 12:30 | PM.DS ---
DS: Providers Provider Date of Service: 09/28/22 Date of admission: 09/27/22 Date of discharge: 09/28/22 Primary care physician: El Rao MD Attending physician on admission: El Ellis Consults: 09/27/22 15:18 Consult to Hospitalist Routine Consulting Provider: Hospitalist Reason For Exam: DM, thyroid d/o Attending physician on discharge: El Ellis DS: Diagnosis Discharge Diagnosis (1) Hyperglycemia: Status: Acute (2) Recurrent hernia: Status: Acute DS: Summary Hospital Course Hospital Course: HPI AT ADMISSION: The patient is a 57-year-old female with a paraumbilical hernia.? She had a previous repair of a similar hernia? with mesh superior to this last year.? She had developed another hernia below this and her CAT scan showed hernia inferior to the old mesh with some bowel loops involved.? She understood the technique of repair with mesh and now presents for the procedure. HOSPITAL COURSE: On 09/28/22, repair of paraumbilical hernia with mesh, lysis of adhesions was performed by Dr. Ellis without complication. The patient tolerated the procedure well. She had persistently elevated POCs in PACU was admitted for observation following the procedure for BS control and pain management. Hospitalist consult was obtained. She had an uncomplicated recovery course. On POD #1, she was doing well post op. She had adequate pain control. She was tolerating solid diet and passing flatus. Her abdomen was benign with appropriate post op tenderness and clean, intact dressing. Her POCs however remained elevated. The hospitalists however felt she was stable for discharge and to resume her home meds and follow up with her PCP regarding further antihyperglycemic management. She was discharged to home on 09/28/22 in stable condition. Status at Discharge Functional status at discharge: independent ambulation Overall status at discharge: patient is progressing back to baseline Time Spent with Patient Time attestation: Total time managing care of this patient today ____ minutes. Discharge coordination time: Less than 30 minutes Quality: Safe Use of Opioids Does Pt have an Active Cancer Diagnosis on the Problem List?: No Quality: Stroke Does the patient have a stroke diagnosis?: No Physical Exam Vital Signs: Vital Signs: Last Vital Signs Temp 98.0 F 09/28/22 07:24 Pulse 61 09/28/22 07:24 Resp 17 09/28/22 07:24 BP 122/64 09/28/22 07:24 Pulse Ox 97 09/28/22 10:01 O2 Del Method 09/28/22 10:01 O2 Flow Rate 1 09/28/22 03:19 Oxygen Flow Rate 96 09/28/22 09:29 BMI result Body Mass Index 33.2 Const: General: comfortable, no acute distress and alert Resp: Effort & Inspection: normal respiratory effort GI: Inspection: No distended and Yes incision (dressing c/d/i) Palpation (GI): Soft to palpation and Tenderness to palpation present (GI) (mild incisional) Skin: General skin exam: no rashes or lesions noted DS: Data Data Completed and Pending Labs on day of discharge: Laboratory Results - last 24 hr 09/27/22 09/27/22 09/27/22 13:01 16:14 20:47 WBC RBC Hgb Hct MCV MCH MCHC RDW Plt Count MPV Absolute Nucleated RBC Nucleated RBC % (auto) Sodium Potassium Chloride Carbon Dioxide Anion Gap BUN Creatinine Estim Creat Clear Calc Estimated GFR POC Glucose 296 H 221 H 352 H* Random Glucose Calcium 09/27/22 09/28/22 09/28/22 22:54 00:41 02:12 WBC RBC Hgb Hct MCV MCH MCHC RDW Plt Count MPV Absolute Nucleated RBC Nucleated RBC % (auto) Sodium Potassium Chloride Carbon Dioxide Anion Gap BUN Creatinine Estim Creat Clear Calc Estimated GFR POC Glucose 391 H* 306 H 302 H Random Glucose Calcium 09/28/22 09/28/22 09/28/22 05:21 05:21 07:23 WBC 12.0 H RBC 4.09 L Hgb 12.3 Hct 36.9 L MCV 90.2 MCH 30.1 MCHC 33.3 RDW 12.7 Plt Count 282 MPV 11.6 Absolute Nucleated RBC 0.000 Nucleated RBC % (auto) 0.0 Sodium 136 Potassium 5.1 Chloride 101 Carbon Dioxide 26 Anion Gap 14 BUN 13 Creatinine 0.97 Estim Creat Clear Calc 61.2 Estimated GFR 59 POC Glucose 284 H Random Glucose 320 H Calcium 9.1 09/28/22 09/28/22 10:15 11:02 WBC RBC Hgb Hct MCV MCH MCHC RDW Plt Count MPV Absolute Nucleated RBC Nucleated RBC % (auto) Sodium Potassium Chloride Carbon Dioxide Anion Gap BUN Creatinine Estim Creat Clear Calc Estimated GFR POC Glucose 326 H 307 H Random Glucose Calcium Discharge Plan Discharge Patient Disposition: Home, Self-Care Referrals: El Ellis MD [Physician] - 2 Weeks Po,Elizabeth Mayberry MD [Physician] - 1 Week Discharge Medications: New oxycodone-acetaminophen [Percocet] 5-325 mg tablet 1 tab PO Q4-6H PRN (Reason: pain) Qty: 30 0RF Rx Instructions: Partial Fill upon patient request. ibuprofen 600 mg tablet 600 mg PO Q6H PRN (Reason: pain) Qty: 30 0RF No Action levothyroxine [Synthroid] 75 mcg tablet 1 tab PO DAILY insulin glargine [Basaglar KwikPen U-100 Insulin] 100 unit/mL (3 mL) insulin pen 30 unit subcut QAM ibuprofen 600 mg tablet 600 mg PO Q6H PRN (Reason: pain) Qty: 30 0RF fluticasone propionate [Flonase Allergy Relief] 50 mcg/actuation spray,suspension 2 spray intranasal DAILY Qty: 16 0RF Rx Instructions: administer into each nostril Trulicity 1.5 mg/0.5 mL pen injector 1.5 mg subcut QWEEK Discharge Orders: Discharge Order (Routine); Ordered 09/28/22 Ordered By: El Ellis Activity on Discharge: No heavy lifting Activity Restrictions/Additional Instructions: If the incision area is tender, you may apply an ice pack for short intervals (No more than 20 minutes on, followed by at least 20 minutes off). Do not apply heat. Do not use creams, lotions, or topical antibiotics unless instructed to do so by your surgeon. These can cause infection or allergic reaction. No lifting more than 20 lbs Okay to shower after 24 hours Okay to change dressings with gauze or Band-Aid after 24 hours No strenuous activities Call the office for follow-up in 2 weeks - with Dr. Ellis Call Your Doctor If: -Your temperature exceeds 101.5? F -You experience excessive pain or swelling -You have an unexpected reaction to medication -You have excessive bleeding -You experience continued vomiting/nausea -Your incision begins to separate -Your incision shows signs of infection such as increased redness, swelling, excessive pain, drainage (light blood or clear fluid is normal) or heat Discharge Date/Time: 09/28/22 12:37
== END 2022-09-28 12:37 | disposition home or self-care (01) ==
LOC: HO.SSS 09:19 → HO.S3 14:33
PROVIDERS: Hospitalist; PCP Internal Medicine; Visit Provider Surgery
PROC: (CPT 49615; principal; 2022-09-27 10:50)
DX: K42.9 Umbilical hernia without obstruction or gangrene (principal); E11.9 Type 2 diabetes mellitus without complications; E03.9 Hypothyroidism, unspecified
CPT/HCPCS: 49615; 36415; 80048; 82947; 85027; C1781; J0131; J0690; J1643; J2250; J2405; J2550; J2795; J3010

== ENCOUNTER → 2022-10-10 15:40 | Outpatient (BNVA) | payer MEDICAID, SELFPAY | PROVIDERS: PCP Internal Medicine; Visit Provider Surgery ==

== ENCOUNTER 2022-10-18 14:20 | Outpatient (REF) | payer MEDICAID, SELFPAY ==
--- NOTE | ~2022-10-18 | XR_ITS ---
EXAMINATION: XR FEET, BILATERAL CLINICAL INFORMATION: Bilateral foot pain. COMPARISON: April 06, 2020. TECHNIQUE: 3 views of each foot. FINDINGS: There has been no significant radiographic change compared with prior plain film examinations of the feet from April 06, 2020. Left Foot: No acute fracture, dislocation or subluxation is seen. The ankle mortise and subtalar joints appear unremarkable. Status post medial bunionectomy involving the distal 1st metatarsal, unchanged. The soft tissues appear unremarkable Right Foot: No acute fracture, dislocation or subluxation is seen. The ankle mortise and subtalar joints appear unremarkable. Status post medial bunionectomy involving the distal 1st metatarsal, unchanged. The soft tissues appear unremarkable XR/XR foot RT min 3V IMPRESSION: No significant radiographic change compared with April 06, 2020. Bilateral bunionectomies involving the distal 1st metatarsal bones. No finding.
--- NOTE | ~2022-10-18 | XR_ITS ---
EXAMINATION: XR FEET, BILATERAL CLINICAL INFORMATION: Bilateral foot pain. COMPARISON: April 06, 2020. TECHNIQUE: 3 views of each foot. FINDINGS: There has been no significant radiographic change compared with prior plain film examinations of the feet from April 06, 2020. Left Foot: No acute fracture, dislocation or subluxation is seen. The ankle mortise and subtalar joints appear unremarkable. Status post medial bunionectomy involving the distal 1st metatarsal, unchanged. The soft tissues appear unremarkable Right Foot: No acute fracture, dislocation or subluxation is seen. The ankle mortise and subtalar joints appear unremarkable. Status post medial bunionectomy involving the distal 1st metatarsal, unchanged. The soft tissues appear unremarkable XR/XR foot LT min 3V IMPRESSION: No significant radiographic change compared with April 06, 2020. Bilateral bunionectomies involving the distal 1st metatarsal bones. No finding.
[2022-10-18 14:41] LABS: MANUAL DIFF FLAG NO
[2022-10-18 14:53] LABS: Basophils Percent Auto 0.5 % (0-2); Eosinophils Absolute Auto 0.2 X10*3/uL (0.0-0.4); Eosinophils Percent Auto 1.8 % (0-4); Hematocrit 39.8 % (37.0-47.0); Hemoglobin 13.7 g/dl (12.0-16.0); Imm Gran Abs Auto 0.04 X10*3/uL (0.00-0.03); Imm Gran Pct Auto 0.5 % (0.0-0.4); Lymphocytes Absolute Auto 3.2 X10*3/uL (1.2-4.9); Lymphocytes Percent Auto 37.9 % (20-40); Mean Corpuscular HGB Conc 34.4 g/dl (31.0-35.0); Mean Corpuscular Hemoglobin 30.3 pg (27.0-33.0); Mean Corpuscular Volume 88.1 fL (80.0-98.0); Mean Platelet Volume 10.6 fL (9.4-12.3); Monocytes Absolute Auto 0.6 X10*3/uL (0.1-1.2); Monocytes Percent Auto 6.6 % (2-11); Neutrophils Absolute Auto 4.4 x10*3/uL (2.0-8.3); Neutrophils Percent Auto 52.7 % (45-73); Platelet Count 328 X10*3/uL (160-400); Red Blood Count 4.52 X10*6/uL (4.20-5.50); Red Cell Distribution Width 12.4 % (11.0-16.0); White Blood Count 8.4 X10*3/uL (4.8-10.8)
[2022-10-18 15:34] LABS: Alanine Aminotransferase 27 U/L (0-31); Albumin Level 3.9 g/dL (3.5-5.0); Alkaline Phosphatase 104 U/L (39-117); Anion Gap 12 (12-20); Aspartate Amino Transferase 31 U/L (5-31); Bilirubin Total 0.8 mg/dL (0.0-1.0); Blood Urea Nitrogen 13 mg/dL (9-16); Calcium 9.7 mg/dL (8.4-10.2); Carbon Dioxide 29 mmol/L (22-29); Chloride 102 mmol/L (96-108); Cholesterol 270 mg/dL; Estimated Glomerular Filt Rate 55; Glucose Random 255 mg/dL (60-115); Potassium 4.5 mmol/L (3.3-5.1); Sodium 138 mmol/L (135-145); Total Protein 7.1 g/dL (6.5-8.0)
[2022-10-18 15:36] LABS: Creatinine Urine 328.56 mg/dL; Microalbum/Creatinine Ratio Ur 5.7 ug/mg cr
[2022-10-18 15:50] LABS: Free T4 (Free Thyroxine) 0.96 ng/dL (0.71-1.85); Thyroid Stimulating Hormone 2.35 uIU/mL (0.32-4.0)
[2022-10-19 05:20] LABS: Estimated Average Glucose 292 mg/dL; Hemoglobin A1c % 11.8 %
== END 2022-10-18 14:21 | disposition home or self-care (01) ==
LOC: HO.XRAY 14:20
PROVIDERS: PCP Internal Medicine; Visit Provider Internal Medicine
DX: R63.5 Abnormal weight gain (principal); E03.9 Hypothyroidism, unspecified; M79.671 Pain in right foot; M79.672 Pain in left foot; E11.9 Type 2 diabetes mellitus without complications; Z79.4 Long term (current) use of insulin
CPT/HCPCS: 36415; 73630; 80053; 82043; 82465; 83036; 84439; 84443; 85025

== ENCOUNTER 2022-10-21 08:38 | Outpatient (REF) | payer MEDICAID, SELFPAY ==
[2022-10-21 09:45] LABS: Estimated Average Glucose 295 mg/dL; Hemoglobin A1c % 11.9 %
[2022-10-21 09:48] LABS: Glucose Fasting 224 mg/dL (60-99)
[2022-10-21 09:49] LABS: Anion Gap 13 (12-20); Blood Urea Nitrogen 17 mg/dL (9-16); Calcium 9.1 mg/dL (8.4-10.2); Carbon Dioxide 26 mmol/L (22-29); Chloride 104 mmol/L (96-108); Cholesterol 255 mg/dL; Estimated Glomerular Filt Rate 58; Glucose Random 223 mg/dL (60-115); HDL Cholesterol 35 mg/dL; LDL Cholesterol Calculated 179 mg/dl; Potassium 4.1 mmol/L (3.3-5.1); Sodium 139 mmol/L (135-145); Triglycerides 208 mg/dL
== END 2022-10-21 08:39 | disposition home or self-care (01) ==
LOC: HO.LAB 08:38
PROVIDERS: Surgery; PCP Internal Medicine; Visit Provider Internal Medicine
DX: R73.9 Hyperglycemia, unspecified (principal)
CPT/HCPCS: 36415; 80048; 80061; 82947; 83036

== ENCOUNTER 2022-10-30 14:30 | Emergency (ER) | payer MEDICAID, SELFPAY ==
--- NOTE | 2022-10-30 | ECG_ITS ---
Test Reason : CP Blood Pressure : / mmHG Vent. Rate : 102 BPM Atrial Rate : 102 BPM P-R Int : 136 ms QRS Dur : 072 ms QT Int : 350 ms P-R-T Axes : 062 099 046 degrees QTc Int : 456 ms Sinus tachycardia Rightward axis Borderline ECG When compared with ECG of 27-NOV-2021 11:16, No significant change was found Referred By: Generic ED Physician Electronically Signed By:ACE HARLEY MD
--- NOTE | ~2022-10-30 | XR_ITS ---
EXAMINATION: XR CHEST CLINICAL INFORMATION: Reason for Exam chest pain/cough COMPARISON: Chest radiograph 07/18/2020 TECHNIQUE: 2 views of the chest FINDINGS: Clear lungs. No pneumothorax or pleural effusion. Normal cardiomediastinal silhouette. XR/XR chest 2V IMPRESSION: * Clear lungs.
[2022-10-30 14:53] VITALS: BP 126/84; PULSE 99; RESP 20; TEMP 36.7; O2SAT 98; BMI 31.9
--- NOTE | 2022-10-30 15:23 | ED.GENADULT ---
HPI - General Adult General Chief complaint: Upper Respiratory Symptoms Stated complaint: Cough/Chest pain Time Seen by Provider: 10/30/22 15:07 History of Present Illness HPI narrative: Patient complains of productive cough for 3 days with increasing sputum production, body aches sore throat as well as chest pain for the last 24 hours which is continuous, not associated with exertion there is no shortness of breath, it is worsened by cough but is present all the time, there is no diaphoresis there is no nausea or vomiting no fainting or feeling faint Patient has history of diabetes and uses insulin Related Data Home Medications Medication Instructions Recorded Confirmed dulaglutide 1.5 mg/0.5 mL 1.5 mg subcut QWEEK 10/11/21 10/10/22 subcutaneous pen injector (Trulicity) insulin glargine 100 unit/mL (3 30 unit subcut QAM 12/17/21 10/10/22 mL) subcutaneous pen (Basaglar KwikPen U-100 Insulin) levothyroxine 75 mcg tablet 1 tab PO DAILY 12/17/21 10/10/22 (Synthroid) Previous Rx's Medication Instructions Recorded fluticasone propionate 50 2 spray intranasal DAILY #16 grams 07/18/22 mcg/actuation nasal spray,suspension (Flonase Allergy Relief) ibuprofen 600 mg tablet 600 mg PO Q6H PRN pain #30 tabs 09/27/22 oxycodone-acetaminophen 5 mg-325 1 tab PO Q4-6H PRN pain #30 tabs 09/27/22 mg tablet (Percocet) acetaminophen 500 mg tablet 1,000 mg PO QID PRN pain #30 tabs 10/30/22 benzonatate 200 mg capsule 200 mg PO BID PRN cough #10 caps 10/30/22 doxycycline hyclate 100 mg capsule 100 mg PO BID 7 days #14 caps 10/30/22 Allergies Allergy/AdvReac Type Severity Reaction Status Date / Time shellfish derived Allergy Severe severe Verified 10/30/22 14:53 throat itching PMFSH Past Medical History Source: nursing notes reviewed Medical History Arthritis COVID-19 vaccine series completed Diabetes Diabetic acidosis, type II High cholesterol History of COVID-19 Hypothyroid PONV (postoperative nausea and vomiting) Recurrent hernia Ventral hernia Surgical History H/O colonoscopy Hx of lumbar discectomy Hx of umbilical hernia repair (09/27/22) Social History Social History Household Members: Family Housing: House Are you a primary clinical care coordinator to a significant other at home: No Do you presently have visiting nurse or other home services: No Alcohol intake: never Patient Tobacco Use Status: Never used Tobacco Tobacco use type: Cigarette Advance Directives: No Advance Directives Information Provided: Yes service: No Physical Exam ED Vital Signs: Vital Signs - 24 hr 10/30/22 14:53 10/30/22 17:49 Temperature 98.1 F Pulse Rate 99 98 Respiratory Rate 20 16 Blood Pressure 126/84 Pulse Oximetry 98 Oxygen Delivery Method Room Air BMI result Body Mass Index 31.9 Course Course Course Narrative: Patient with cough and upper respiratory symptoms with 1 day of gradual onset continuous chest pain which is worsened by coughing, no shortness of breath EKG showed a ventricular rate of 102, sinus tachycardia, [place] interval was normal, QT was normal, QRS duration was normal, no acute ST changes no acute ischemic changes Chest x-ray was normal, no evidence of pneumonia CBC was normal Chemistry was normal except for a glucose of 270 Initial troponin was 2.7 and repeat 3 hours later was 3.0 both in normal range Patient's continued chest pain worse with cough not related to exertion it is not typical for heart attack or angina and is likely irritation of chest wall from frequent coughing over the last several days and patient is discharged with treatment for bronchitis and cough As she had some rhonchi and faint wheezing she was given a nebulizer treatment in the emergency room and did not feel like it relieved any of her symptoms, she never had shortness of breath and adventitious sounds are likely sequelae of upper respiratory infection/bronchitis Medications Administered Discontinued Medications Generic Name Dose Route Start Last Admin Trade Name Freq PRN Reason Stop Dose Admin Acetaminophen 975 mg 10/30/22 19:27 10/30/22 19:36 Acetaminophen 325 Mg Tablet PO 10/30/22 19:28 975 mg ONCE ONE Administration Albuterol/Ipratropium 3 ml 10/30/22 17:14 10/30/22 17:49 Albuterol/Iprat 2.5/0.5mg 3 Ml Ampul.Neb INHALE 10/30/22 17:15 3 ml ONCE ONE Administration Doxycycline Monohydrate 100 mg 10/30/22 19:26 10/30/22 19:36 Doxycycline Monohydrate 100 Mg Capsule PO 10/30/22 19:27 100 mg ONCE ONE Administration Medical Decision Making Lab Data [facility] Lab Attestation statement: I reviewed the patient's lab results. 10/30/22 15:47 10/30/22 15:47 Labs: Lab Results 10/30/22 10/30/22 10/30/22 Range/Units 14:44 15:47 15:47 WBC 8.3 (4.8-10.8) X10*3/uL RBC 4.75 (4.20-5.50) X10*6/uL Hgb 14.2 (12.0-16.0) g/dl Hct 41.1 (37.0-47.0) % MCV 86.5 (80.0-98.0) fL MCH 29.9 (27.0-33.0) pg MCHC 34.5 (31.0-35.0) g/dl RDW 12.4 (11.0-16.0) % Plt Count 302 (160-400) X10*3/uL MPV 10.2 (9.4-12.3) fL Immature Gran % (Auto) Cancelled Neut % (Auto) Cancelled Lymph % (Auto) Cancelled [place] % (Auto) Cancelled Eos % (Auto) Cancelled Baso % (Auto) Cancelled Lymph # (Auto) Cancelled [place] # (Auto) Cancelled Eos # (Auto) Cancelled Baso # (Auto) Cancelled Abs Immat Gran (auto) Cancelled Absolute Neuts (auto) Cancelled Absolute Nucleated RBC 0.000 (0.0-0.012) X10*3/uL Nucleated RBC % (auto) 0.0 (0.0-0.2) /100WBC Neutrophils % (Manual) 42 L (45-73) % Band Neutrophils % 13 H (3-5) % Lymphocytes % (Manual) 26 (20-40) % Atypical Lymphs % (Man) 13 H (0-6) % Monocytes % (Manual) 4 (2-11) % Eosinophils % (Manual) 1 (0-4) % Basophils % (Manual) 1 (0-2) % Abs Neuts (Manual) 4.6 (2.0-8.3) X10*3/uL Lymphocytes # (Manual) 2.2 (1.2-4.9) X10*3/uL Atyp Lymphs # (Manual) 1.1 x10*3/uL Monocytes # (Manual) 0.3 (0.1-1.2) X10*3/uL Eosinophils # (Manual) 0.1 (0.0-0.4) X10*3/uL Basophils # (Manual) 0.1 (0.0-0.2) X10*3/uL Platelet Estimate NORMAL (NORMAL) Plt Morphology Comment NORMAL RBC Morphology NORMAL Smear Tech's Comments VERIFIED Sodium 138 (135-145) mmol/L Potassium 4.5 (3.3-5.1) mmol/L Chloride 103 (96-108) mmol/L Carbon Dioxide 27 (22-29) mmol/L Anion Gap 13 (12-20) BUN 11 (9-16) mg/dL Creatinine 0.98 (0.5-1.4) mg/dL Estim Creat Clear Calc 59.3 Estimated GFR 58 Random Glucose 270 H (60-115) mg/dL Calcium 9.8 D (8.4-10.2) mg/dL Troponin I High Sens (<3.5-17.0) ng/L Influenza Type A (PCR) NEGATIVE (Negative) Influenza Type B (PCR) NEGATIVE (Negative) RSV RNA Qual (PCR) NEGATIVE (Negative) SARS-CoV-2 RNA (RT-PCR) NEGATIVE (Negative) 10/30/22 10/30/22 Range/Units 15:47 18:41 WBC (4.8-10.8) X10*3/uL RBC (4.20-5.50) X10*6/uL Hgb (12.0-16.0) g/dl Hct (37.0-47.0) % MCV (80.0-98.0) fL MCH (27.0-33.0) pg MCHC (31.0-35.0) g/dl RDW (11.0-16.0) % Plt Count (160-400) X10*3/uL MPV (9.4-12.3) fL Immature Gran % (Auto) Neut % (Auto) Lymph % (Auto) [place] % (Auto) Eos % (Auto) Baso % (Auto) Lymph # (Auto) [place] # (Auto) Eos # (Auto) Baso # (Auto) Abs Immat Gran (auto) Absolute Neuts (auto) Absolute Nucleated RBC (0.0-0.012) X10*3/uL Nucleated RBC % (auto) (0.0-0.2) /100WBC Neutrophils % (Manual) (45-73) % Band Neutrophils % (3-5) % Lymphocytes % (Manual) (20-40) % Atypical Lymphs % (Man) (0-6) % Monocytes % (Manual) (2-11) % Eosinophils % (Manual) (0-4) % Basophils % (Manual) (0-2) % Abs Neuts (Manual) (2.0-8.3) X10*3/uL Lymphocytes # (Manual) (1.2-4.9) X10*3/uL Atyp Lymphs # (Manual) x10*3/uL Monocytes # (Manual) (0.1-1.2) X10*3/uL Eosinophils # (Manual) (0.0-0.4) X10*3/uL Basophils # (Manual) (0.0-0.2) X10*3/uL Platelet Estimate (NORMAL) Plt Morphology Comment RBC Morphology Smear Tech's Comments Sodium (135-145) mmol/L Potassium (3.3-5.1) mmol/L Chloride (96-108) mmol/L Carbon Dioxide (22-29) mmol/L Anion Gap (12-20) BUN (9-16) mg/dL Creatinine (0.5-1.4) mg/dL Estim Creat Clear Calc Estimated GFR Random Glucose (60-115) mg/dL Calcium (8.4-10.2) mg/dL Troponin I High Sens < 2.7 3.0 (<3.5-17.0) ng/L Influenza Type A (PCR) (Negative) Influenza Type B (PCR) (Negative) RSV RNA Qual (PCR) (Negative) SARS-CoV-2 RNA (RT-PCR) (Negative) Discharge Plan Discharge Clinical Impression: Bronchitis Patient Disposition: Home, Self-Care Additional Instructions: EKG and blood test for heart attack were normal, symptoms are not typical of heart attack or blood clot Other blood tests did not show any acute abnormality Testing for COVID and flu were negative We are treating bronchitis with doxycycline antibiotic You can use Tylenol as needed for aches and pains Return any time for difficulty breathing any worse condition or any concerns Prescriptions: New benzonatate 200 mg capsule 200 mg PO BID PRN (Reason: cough) Qty: 10 0RF doxycycline hyclate 100 mg capsule 100 mg PO BID 7 Days Qty: 14 0RF acetaminophen 500 mg tablet 1,000 mg PO QID PRN (Reason: pain) Qty: 30 0RF Discontinued ibuprofen 600 mg tablet 600 mg PO Q6H PRN (Reason: pain) Qty: 30 0RF No Action levothyroxine [Synthroid] 75 mcg tablet 1 tab PO DAILY insulin glargine [Basaglar KwikPen U-100 Insulin] 100 unit/mL (3 mL) insulin pen 30 unit subcut QAM fluticasone propionate [Flonase Allergy Relief] 50 mcg/actuation spray,suspension 2 spray intranasal DAILY Qty: 16 0RF Rx Instructions: administer into each nostril oxycodone-acetaminophen [Percocet] 5-325 mg tablet 1 tab PO Q4-6H PRN (Reason: pain) Qty: 30 0RF Rx Instructions: Partial Fill upon patient request. ibuprofen 600 mg tablet 600 mg PO Q6H PRN (Reason: pain) Qty: 30 0RF Trulicity 1.5 mg/0.5 mL pen injector 1.5 mg subcut QWEEK Referrals: Boo Emmanuel MD [Physician] - (Right testicle pain) Stand Alone Forms: Work/School Release Interventions: ED Discharge Assessment Last Done: 10/30/22 20:21 Discharge Date/Time: 10/30/22 20:21
[2022-10-30 15:30] LABS: Influenza A PCR NEGATIVE (Negative); Influenza B PCR NEGATIVE (Negative); Resp Syncy Virus RNA Qual PCR NEGATIVE (Negative); SARS COV2 PCR INHOUSE NEGATIVE (Negative)
[2022-10-30 16:02] LABS: Hematocrit 41.1 % (37.0-47.0); Hemoglobin 14.2 g/dl (12.0-16.0); Mean Corpuscular HGB Conc 34.5 g/dl (31.0-35.0); Mean Corpuscular Hemoglobin 29.9 pg (27.0-33.0); Mean Corpuscular Volume 86.5 fL (80.0-98.0); Mean Platelet Volume 10.2 fL (9.4-12.3); Platelet Count 302 X10*3/uL (160-400); Red Blood Count 4.75 X10*6/uL (4.20-5.50); Red Cell Distribution Width 12.4 % (11.0-16.0); White Blood Count 8.3 X10*3/uL (4.8-10.8)
[2022-10-30 16:08] LABS: Anion Gap 13 (12-20); Blood Urea Nitrogen 11 mg/dL (9-16); Calcium 9.8 mg/dL (8.4-10.2); Carbon Dioxide 27 mmol/L (22-29); Chloride 103 mmol/L (96-108); Creatinine Clr Calc Pharmacy 59.3; Estimated Glomerular Filt Rate 58; Glucose Random 270 mg/dL (60-115); Potassium 4.5 mmol/L (3.3-5.1); Sodium 138 mmol/L (135-145)
[2022-10-30 16:17] LABS: Troponin-I High Sensitivity < 2.7 ng/L (<3.5-17.0)
[2022-10-30 16:32] LABS: Atypical Lymph Absolute Manual 1.1 x10*3/uL; Atypical Lymphs Percent Manual 13 % (0-6); Basophils Abs Manual 0.1 X10*3/uL (0.0-0.2); Basophils Percent Manual 1 % (0-2); Eosinophils Absolute Manual 0.1 X10*3/uL (0.0-0.4); Eosinophils Percent Manual 1 % (0-4); Lymphocytes Absolute Manual 2.2 X10*3/uL (1.2-4.9); Lymphocytes Percent Manual 26 % (20-40); Monocytes Absolute Manual 0.3 X10*3/uL (0.1-1.2); Monocytes Percent Manual 4 % (2-11); Neutrophils Absolute Manual 4.6 X10*3/uL (2.0-8.3); Neutrophils Percent Manual 42 % (45-73)
[2022-10-30 16:38] LABS: Band Neutrophils Percent 13 % (3-5)
[2022-10-30 16:39] LABS: Platelet Estimate NORMAL (NORMAL); Platelet Morphology Comment NORMAL; RBC Morphology NORMAL
[2022-10-30 16:40] LABS: SLIDE REVIEW VERIFIED
[2022-10-30 17:49] VITALS: PULSE 98; RESP 16; O2SAT 99
[2022-10-30] MEDS: Albuterol/Iprat 2.5/0.5MG 3 ML AMPUL.NEB INHALE (17:49)
[2022-10-30] MEDS: Doxycycline Monohydrate 100 MG CAPSULE PO (19:36)
[2022-10-30] MEDS: Acetaminophen 325 MG TABLET 975 MG PO (19:36)
== END 2022-10-30 20:21 | disposition home or self-care (01) ==
PROVIDERS: Physician Assistant Medical; Emergency Provider Emergency Medicine; PCP Internal Medicine
DX: J40 Bronchitis, not specified as acute or chronic (principal); R05.9 Cough, unspecified; R07.89 Other chest pain; Z20.822 Contact with and (suspected) exposure to COVID-19; Z20.828 Contact with and (suspected) exposure to other viral communicable diseases; Z79.899 Other long term (current) drug therapy
CPT/HCPCS: 0241U; 36415; 71046; 80048; 84484; 85007; 85025; 85027; 93005; 94640; 99284

== ENCOUNTER 2022-11-15 14:08 | Outpatient (REF) | payer MEDICAID, SELFPAY ==
--- NOTE | ~2022-11-15 | XR_ITS ---
EXAMINATION: XR SHOULDER, RIGHT CLINICAL INFORMATION: Right shoulder pain. COMPARISON: None available. TECHNIQUE: AP external rotation, Grashey, scapular Y, and axillary views of the right shoulder. FINDINGS: The bones and soft tissues are normal. No fracture. Glenohumeral and acromioclavicular alignment is anatomic with normal joint space. No abnormal soft tissue calcifications. XR/XR shoulder RT min 2V IMPRESSION: Unremarkable right shoulder.
== END 2022-11-15 14:09 | disposition home or self-care (01) ==
LOC: HO.XRAY 14:08
PROVIDERS: PCP Internal Medicine; Visit Provider Internal Medicine
DX: M25.511 Pain in right shoulder (principal)
CPT/HCPCS: 73030

== ENCOUNTER 2022-12-24 10:04 | Outpatient (REF) | payer MEDICAID, SELFPAY ==
[2022-12-24 10:53] LABS: Estimated Average Glucose 197 mg/dL; Hemoglobin A1c % 8.5 %
[2022-12-24 11:11] LABS: Anion Gap 13 (12-20); Blood Urea Nitrogen 12 mg/dL (9-16); Calcium 9.2 mg/dL (8.4-10.2); Carbon Dioxide 25 mmol/L (22-29); Chloride 109 mmol/L (96-108); Estimated Glomerular Filt Rate > 60; Glucose Random 177 mg/dL (60-115); Potassium 4.2 mmol/L (3.3-5.1); Sodium 143 mmol/L (135-145)
== END 2022-12-24 10:05 | disposition home or self-care (01) ==
LOC: HO.LAB 10:04
PROVIDERS: PCP Internal Medicine; Visit Provider Internal Medicine
DX: E11.9 Type 2 diabetes mellitus without complications (principal); I10 Essential (primary) hypertension
CPT/HCPCS: 36415; 80048; 83036

== ENCOUNTER 2023-05-18 11:19 | Emergency (ER) | payer MEDICAID, SELFPAY ==
--- NOTE | ~2023-05-18 | CT_ITS ---
EXAMINATION: CT ABDOMEN AND PELVIS WITHOUT CONTRAST CLINICAL INFORMATION: Abdominal pain COMPARISON: CT scan of abdomen and pelvis on 07/18/2022 TECHNIQUE: Multidetector volumetric imaging was performed from the superior aspect of the liver through the pubic symphysis. Sagittal and coronal reformatted images were obtained on the technologist's workstation. This CT examination was performed using dose optimization techniques as appropriate, variously including the following: *Automated exposure control *Adjustment of mA and/or kV according to patient size (this includes techniques or standardized protocols for targeted exams where dose is matched to indication/reason for exam; i.e. extremities or head) *Use of iterative reconstruction technique DLP: 611 mGy-cm FINDINGS: CT ABDOMEN LUNG BASES: Bilateral lung bases are clear. LIVER: There is persistent hepatic steatosis, mean attenuation of 33 Hounsfield units, compared to splenic attenuation of 40 Hounsfield units. GALLBLADDER AND BILIARY TREE: Gallbladder appears unremarkable without calcified stones. Common bile duct is not dilated. SPLEEN: The spleen is normal in size without focal lesion on noncontrast enhanced images. PANCREAS: The pancreas appears unremarkable on noncontrast enhanced images. ADRENAL GLANDS: Adrenal glands are normal in size without focal lesion bilaterally. KIDNEYS: The visualized bilateral kidneys are normal in size with persistent multiple renal calculi, measuring up to 0.3 cm in diameter. No caliectasis or dilated pelvis is seen. No dilated ureters are found. BOWELS: There is no abnormal dilatation of the large and small bowel loops. Multiple diverticula are seen in the entire colon without inflammatory changes. RETROPERITONEUM: No abnormally enlarged retroperitoneal lymph nodes, mass or hematoma could be seen. BLOOD VESSELS: Abdominal aorta is normal in size with scattered atherosclerotic calcifications. ABDOMINAL WALL: At L4-L5 junction level, a large midline ventral hernia containing multiple ileal loops and mesentery is seen, protruding through a gap in the rectus sheath measuring 5.9 cm in width (previously 5.5 cm). PERITONEUM: There is no ascites. There were no abdominal peritoneal inflammatory changes seen. No free peritoneal air was seen. BONES: Advanced L4-L5 and L5-S1 degenerative lumbar disc disease is seen. No fracture or dislocation. No focal bone lesion diagnostic of metastatic disease could be seen in the lumbar region. CT PELVIS URINARY BLADDER: The visualized urinary bladder is normal, filled with urine. No intraluminal stones are found. No abnormally dilated distal ureters are seen. BOWELS: There is no abnormal dilatation of the large and small bowel loops. Multiple diverticula are seen in the descending and sigmoid colon without inflammatory changes. Normal appendix is seen projecting medial and posterior to the cecum. GENITAL ORGANS: No adnexal mass lesion could be seen. The uterus is unremarkable. LYMPH NODES: No abnormally enlarged iliac or inguinal lymph nodes are seen. PERITONEUM: No inflammatory changes, ascites or free peritoneal air are found in the pelvis. BONES: No fracture or dislocation. No focal bone lesion diagnostic of metastatic disease could be seen in the pelvis. CT/CT abdomen pelvis wo IV con IMPRESSION: 1. No interval change in size of the L4-L5 junction level midline medium-sized ventral hernia containing multiple ileal loops and mesentery. 2. Unchanged bilateral multiple nonobstructive renal calculi. No hydronephrosis or hydroureter is seen. 3. No urinary bladder stone or distal ureteric stone is found. 4. Unchanged extensive severe colon diverticulosis without inflammation. 5. Unchanged hepatic steatosis. Fleischner guidelines were followed.
[2023-05-18 11:23] VITALS: BP 148/86; PULSE 87; RESP 16; TEMP 36.6; O2SAT 97; BMI 32.1
--- NOTE | 2023-05-18 11:24 | ECG_ITS ---
Test Reason : DIZZINESS Blood Pressure : / mmHG Vent. Rate : 081 BPM Atrial Rate : 081 BPM P-R Int : 146 ms QRS Dur : 072 ms QT Int : 380 ms P-R-T Axes : 061 085 049 degrees QTc Int : 441 ms Normal sinus rhythm Normal ECG When compared with ECG of 30-OCT-2022 14:39, No significant change was found Referred By: Crispin Mcghee Electronically Signed By:CARLIE ELIZABETH MD
--- NOTE | 2023-05-18 11:24 | ED_ITS ---
HPI - General Adult General Chief complaint: General Medical Stated complaint: dizzy, nausea, weak Time Seen by Provider: 05/18/23 11:31 Related Data Home Medications Medication Instructions Recorded Confirmed dulaglutide 1.5 mg/0.5 mL 1.5 mg subcut QWEEK 10/11/21 10/10/22 subcutaneous pen injector (Trulicity) insulin glargine 100 unit/mL (3 30 unit subcut QAM 12/17/21 10/10/22 mL) subcutaneous pen (Basaglar KwikPen U-100 Insulin) levothyroxine 75 mcg tablet 1 tab PO DAILY 12/17/21 10/10/22 (Synthroid) Previous Rx's Medication Instructions Recorded fluticasone propionate 50 2 spray intranasal DAILY #16 grams 07/18/22 mcg/actuation nasal spray,suspension (Flonase Allergy Relief) ibuprofen 600 mg tablet 600 mg PO Q6H PRN pain #30 tabs 09/27/22 oxycodone-acetaminophen 5 mg-325 1 tab PO Q4-6H PRN pain #30 tabs 09/27/22 mg tablet (Percocet) acetaminophen 500 mg tablet 1,000 mg (2 x 500 mg) PO QID PRN 10/30/22 pain #30 tabs benzonatate 200 mg capsule 200 mg PO BID PRN cough #10 caps 10/30/22 doxycycline hyclate 100 mg capsule 100 mg PO BID 7 days #14 caps 10/30/22 Allergies Allergy/AdvReac Type Severity Reaction Status Date / Time shellfish derived Allergy Severe severe Verified 10/30/22 14:53 throat itching PMFSH Past Medical History Medical History Arthritis COVID-19 vaccine series completed Diabetes Diabetic acidosis, type II High cholesterol History of COVID-19 Hypothyroid PONV (postoperative nausea and vomiting) Recurrent hernia Ventral hernia Surgical History H/O colonoscopy Hx of lumbar discectomy Hx of umbilical hernia repair (09/27/22) Social History Social History Household Members: Family Housing: House Are you a primary care coordinator to a significant other at home: No Do you presently have visiting nurse or other home services: No Alcohol intake: never Patient Tobacco Use Status: Never used Tobacco Tobacco use type: Cigarette Smoked in Last 30 Days: No Use of substances other than those prescribed or required for medical reasons: No Advance Directives: No Patient : No service: No Physical Exam ED Vital Signs: Vital Signs - 24 hr 05/18/23 11:23 05/18/23 11:51 05/18/23 11:52 Temperature 98 F Pulse Rate 87 84 93 Respiratory Rate 16 16 Blood Pressure 148/86 H 140/76 H 140/74 H Pulse Oximetry 97 98 Oxygen Delivery Method Room Air Room Air 05/18/23 11:52 05/18/23 11:52 Temperature Pulse Rate 86 84 Respiratory Rate Blood Pressure 131/80 136/74 Pulse Oximetry Oxygen Delivery Method BMI result Body Mass Index 32.1 Medical Decision Making Lab Data 05/18/23 12:06 05/18/23 12:06 Labs: Lab Results 05/18/23 Range/Units 12:06 WBC 7.8 (4.8-10.8) X10*3/uL RBC 4.41 (4.20-5.50) X10*6/uL Hgb 13.2 (12.0-16.0) g/dl Hct 38.9 (37.0-47.0) % MCV 88.2 (80.0-98.0) fL MCH 29.9 (27.0-33.0) pg MCHC 33.9 (31.0-35.0) g/dl RDW 12.4 (11.0-16.0) % Plt Count 282 (160-400) X10*3/uL MPV 10.6 (9.4-12.3) fL Immature Gran % (Auto) 0.4 (0.0-0.4) % Neut % (Auto) 53.1 (45-73) % Lymph % (Auto) 38.0 (20-40) % [place] % (Auto) 6.5 (2-11) % Eos % (Auto) 1.4 (0-4) % Baso % (Auto) 0.6 (0-2) % Lymph # (Auto) 3.0 (1.2-4.9) X10*3/uL [place] # (Auto) 0.5 (0.1-1.2) X10*3/uL Eos # (Auto) 0.1 (0.0-0.4) X10*3/uL Baso # (Auto) 0.1 (0.0-0.2) X10*3/uL Abs Immat Gran (auto) 0.03 (0.00-0.03) X10*3/uL Absolute Neuts (auto) 4.2 (2.0-8.3) x10*3/uL Absolute Nucleated RBC 0.000 (0.0-0.012) X10*3/uL Nucleated RBC % (auto) 0.0 (0.0-0.2) /100WBC Sodium 140 (135-145) mmol/L Potassium 4.1 (3.3-5.1) mmol/L Chloride 104 (96-108) mmol/L Carbon Dioxide 26 (22-29) mmol/L Anion Gap 14 (12-20) BUN 12 (9-16) mg/dL Creatinine 0.98 (0.5-1.4) mg/dL Estim Creat Clear Calc 59.5 Estimated GFR 58 Random Glucose 259 H (60-115) mg/dL Calcium 9.6 (8.4-10.2) mg/dL Total Bilirubin 0.4 (0.0-1.0) mg/dL AST 27 (5-31) U/L ALT 26 (0-31) U/L Alkaline Phosphatase 96 (39-117) U/L Total Protein 7.6 (6.5-8.0) g/dL Albumin 3.6 (3.5-5.0) g/dL Lipase 95 H (8-78) U/L Discharge Plan Discharge Prescriptions: No Action levothyroxine [Synthroid] 75 mcg tablet 1 tab PO DAILY insulin glargine [Basaglar KwikPen U-100 Insulin] 100 unit/mL (3 mL) insulin pen 30 unit subcut QAM fluticasone propionate [Flonase Allergy Relief] 50 mcg/actuation spray,suspension 2 spray intranasal DAILY Qty: 16 0RF Rx Instructions: administer into each nostril oxycodone-acetaminophen [Percocet] 5-325 mg tablet 1 tab PO Q4-6H PRN (Reason: pain) Qty: 30 0RF Rx Instructions: Partial Fill upon patient request. ibuprofen 600 mg tablet 600 mg PO Q6H PRN (Reason: pain) Qty: 30 0RF benzonatate 200 mg capsule 200 mg PO BID PRN (Reason: cough) Qty: 10 0RF doxycycline hyclate 100 mg capsule 100 mg PO BID 7 Days Qty: 14 0RF acetaminophen 500 mg tablet 1,000 mg PO QID PRN (Reason: pain) Qty: 30 0RF Trulicity 1.5 mg/0.5 mL pen injector 1.5 mg subcut QWEEK
--- NOTE | 2023-05-18 11:40 | ED.GENADULT ---
HPI - General Adult General Chief complaint: General Medical Stated complaint: dizzy, nausea, weak Time Seen by Provider: 05/18/23 11:31 Source: patient Mode of arrival: ambulatory Limitations: no limitations History of Present Illness HPI narrative: Patient is a 57-year-old female with a PMH of hyperglycemia and recurrent ventral hernias presenting with 1.5 hours of dizziness and nausea after turning on the heat at work today ( reports weird smell when heater came on) . She describes the dizziness as lightheadedness and endorses sensation of nystagmus. She has had similar experiences in the past which she contributes to her diabetes. Reports dizziness worse w/ positional changes. This morning her blood sugar was 218 and she took 40 of Lantus and 8 of Novalog. She ate a coffee and donut afterward. Denies fever, chills, fatigue, myalgias, headache, vision changes, balance changes, weakness, chest pain, palpitations, shortness of breath, vomiting, bowel movement changes, and urinary abnormalities. NIHSS-0 Related Data Home Medications Medication Instructions Recorded Confirmed dulaglutide 1.5 mg/0.5 mL 1.5 mg subcut QWEEK 10/11/21 10/10/22 subcutaneous pen injector (Trulicity) insulin glargine 100 unit/mL (3 30 unit subcut QAM 12/17/21 10/10/22 mL) subcutaneous pen (Basaglar KwikPen U-100 Insulin) levothyroxine 75 mcg tablet 1 tab PO DAILY 12/17/21 10/10/22 (Synthroid) Previous Rx's Medication Instructions Recorded fluticasone propionate 50 2 spray intranasal DAILY #16 grams 07/18/22 mcg/actuation nasal spray,suspension (Flonase Allergy Relief) ibuprofen 600 mg tablet 600 mg PO Q6H PRN pain #30 tabs 09/27/22 oxycodone-acetaminophen 5 mg-325 1 tab PO Q4-6H PRN pain #30 tabs 09/27/22 mg tablet (Percocet) acetaminophen 500 mg tablet 1,000 mg (2 x 500 mg) PO QID PRN 10/30/22 pain #30 tabs benzonatate 200 mg capsule 200 mg PO BID PRN cough #10 caps 10/30/22 doxycycline hyclate 100 mg capsule 100 mg PO BID 7 days #14 caps 10/30/22 meclizine 25 mg tablet 25 mg PO DAILY PRN dizziness #14 05/18/23 tabs Allergies Allergy/AdvReac Type Severity Reaction Status Date / Time shellfish derived Allergy Severe severe Verified 10/30/22 14:53 throat itching Review of Systems Review of Systems: Constitutional : No Weight loss, No Fever, No Chills, No Fatigue, No Malaise ENT/Mouth : No sore throat, No Rhinorrhea Eyes: No Eye Pain, No Swelling, No Redness Cardiovascular : No Chest Pain, No SOB, No Dyspnea on Exertion, No Orthopnea, No Edema, No Palpitations Respiratory : No Cough, No Sputum, No Wheezing Gastrointestinal : + nausea, abdominal pain, No Nausea, No Vomiting, No Diarrhea, No Constipation, No Hematochezia, No Melena Genitourinary : No Dysuria, No Urinary Frequency, No Hematuria, Musculoskeletal : No joint pain, No Myalgias, No Joint Swelling Skin : No Skin Lesions, No rash Neuro : + dizziness, No Weakness, No Numbness, No Headache Psych : No Anxiety/Panic, No Depression All other systems reviewed and are negative Yes all other systems are reviewed and are negative [facility] Past Medical History Attestation statement: The following information was validated with the patient. Source: old records reviewed and nursing notes reviewed Medical History Ventral hernia PONV (postoperative nausea and vomiting) COVID-19 vaccine series completed Arthritis Hypothyroid Diabetes History of COVID-19 Recurrent hernia High cholesterol Diabetic acidosis, type II Surgical History H/O colonoscopy Hx of lumbar discectomy Hx of umbilical hernia repair (09/27/22) Social History Social History Household Members: Family Housing: House Are you a primary career based intervention coordinator to a significant other at home: No Do you presently have visiting nurse or other home services: No Alcohol intake: never Patient Tobacco Use Status: Never used Tobacco Tobacco use type: Cigarette Smoked in Last 30 Days: No Use of substances other than those prescribed or required for medical reasons: No Advance Directives: No Patient : No service: No Physical Exam ED Vital Signs: Vital Signs - 24 hr 05/18/23 11:23 05/18/23 11:51 05/18/23 11:52 Temperature 98 F Pulse Rate 87 84 93 Respiratory Rate 16 16 Blood Pressure 148/86 H 140/76 H 140/74 H Pulse Oximetry 97 98 Oxygen Delivery Method Room Air Room Air 05/18/23 11:52 05/18/23 11:52 05/18/23 13:47 Temperature Pulse Rate 86 84 79 Respiratory Rate 16 Blood Pressure 131/80 136/74 127/77 Pulse Oximetry 98 Oxygen Delivery Method Room Air BMI result Body Mass Index 32.1 vss Appearance: Alert.? Oriented X3.? No acute distress.? Head: Normocephalic, atraumatic, no step-offs or deformities Eyes: Pupils equal, round and reactive to light.?EOM intact. No nystagmus noted. Neck: Normal inspection.? Neck supple.? CVS: Normal heart rate and rhythm.? Pulses normal.? Respiratory: No respiratory distress.? Breath sounds normal.? Abdomen: Soft. Normoactive bowel sounds. Mildly tender over hernia located on right side of abdomen Skin: Skin warm and dry.? Normal skin color.? Normal skin turgor.? Extremities: No lower extremity edema.? No calf ttp. 5/5 strength to bilateral upper and lower extremities Neuro: Oriented X 3.? No motor deficit.? No sensory deficit. CN 2-12 intact. Ambulatory without assistance. Normal [id number], [id number], steady tandem gait normal coordination. Negative Romberg and pronator drift NIH stroke scale 0 Course Reevaluation(s) Reevaluation #1: CBC within normal limits. Chemistry unremarkable no acute findings requiring intervention, glucose elevated 259, given fluids at this time. Lipase slightly elevated 95 however most of patient's tenderness to right side of abdomen low suspicion for acute pancreatitis. CT abdomen is pending however. Patient's dizziness much improved after meclizine and fluids states she is feeling better. Ambulatory throughout the department without difficulty. Urine CT abdomen pending. Plan is for discharge home when results come back Time: 14:20 Reevaluation #2: Ventral hernia minimal change noted on ct abd, no signs of incarceration. non obstructive kidney stones. Severe diverticuloisis. Patient feeling a lot better. At this time patient to be discharged home, Educated patient on diagnosis and treatment plan, answered all question, patient verbalizes understanding. At this time patient will be discharged home, advised to return with new or worsening symptoms. Educated on worrisome signs and symptoms and when to return. At this time I feel comfortable discharge home. Time: 15:23 Medications Administered Discontinued Medications Generic Name Dose Route Start Last Admin Trade Name Ana PRN Reason Stop Dose Admin Sodium Chloride 1,000 mls @ 999 mls/hr 05/18/23 13:45 05/18/23 15:15 Ns IV 05/18/23 14:45 Infused .Q1H1M JEANETTE Infusion Meclizine HCl 25 mg 05/18/23 13:31 05/18/23 13:56 Meclizine Hcl 25 Mg Tablet PO 05/18/23 13:32 25 mg ONCE ONE Administration Medical Decision Making Medical Decision Making [facility] Narrative: 11:50 57 yo female with a PMH of hyperglycemia presenting with 1.5 hours of dizziness and nausea PE w/ TTP overlying r side of abdomianl hernia. NIHSS- 0 Likely dehydration vs. orthostatic hypotension vs. hypoglycemia vs. episodic vertigo. Unlikely vertebrobasilar stroke, interracial hemorrhage, DKA, electrolyte abnormalities. Unlikely incarcerated hernia , no signs of acute abdomen Plan- labs, imaging Differential Diagnosis Differential Diagnoses: The differential diagnosis associated with the presentation includes Likely dehydration vs. orthostatic hypotension vs. hypoglycemia vs. episodic vertigo. Unlikely vertebrobasilar stroke, interracial hemorrhage, DKA, electrolyte abnormalities. Unlikely incarcerated hernia , no signs of acute abdomen Admission/Observation Consideration of admission/observation: Escalation of care including admission/observation considered Lab Data [facility] Lab Attestation statement: I reviewed the patient's lab results. 05/18/23 12:06 05/18/23 12:06 Labs: Lab Results 05/18/23 Range/Units 12:06 WBC 7.8 (4.8-10.8) X10*3/uL RBC 4.41 (4.20-5.50) X10*6/uL Hgb 13.2 (12.0-16.0) g/dl Hct 38.9 (37.0-47.0) % MCV 88.2 (80.0-98.0) fL MCH 29.9 (27.0-33.0) pg MCHC 33.9 (31.0-35.0) g/dl RDW 12.4 (11.0-16.0) % Plt Count 282 (160-400) X10*3/uL MPV 10.6 (9.4-12.3) fL Immature Gran % (Auto) 0.4 (0.0-0.4) % Neut % (Auto) 53.1 (45-73) % Lymph % (Auto) 38.0 (20-40) % [place] % (Auto) 6.5 (2-11) % Eos % (Auto) 1.4 (0-4) % Baso % (Auto) 0.6 (0-2) % Lymph # (Auto) 3.0 (1.2-4.9) X10*3/uL [place] # (Auto) 0.5 (0.1-1.2) X10*3/uL Eos # (Auto) 0.1 (0.0-0.4) X10*3/uL Baso # (Auto) 0.1 (0.0-0.2) X10*3/uL Abs Immat Gran (auto) 0.03 (0.00-0.03) X10*3/uL Absolute Neuts (auto) 4.2 (2.0-8.3) x10*3/uL Absolute Nucleated RBC 0.000 (0.0-0.012) X10*3/uL Nucleated RBC % (auto) 0.0 (0.0-0.2) /100WBC Sodium 140 (135-145) mmol/L Potassium 4.1 (3.3-5.1) mmol/L Chloride 104 (96-108) mmol/L Carbon Dioxide 26 (22-29) mmol/L Anion Gap 14 (12-20) BUN 12 (9-16) mg/dL Creatinine 0.98 (0.5-1.4) mg/dL Estim Creat Clear Calc 59.5 Estimated GFR 58 Random Glucose 259 H (60-115) mg/dL Calcium 9.6 (8.4-10.2) mg/dL Total Bilirubin 0.4 (0.0-1.0) mg/dL AST 27 (5-31) U/L ALT 26 (0-31) U/L Alkaline Phosphatase 96 (39-117) U/L Total Protein 7.6 (6.5-8.0) g/dL Albumin 3.6 (3.5-5.0) g/dL Lipase 95 H (8-78) U/L Independent Interpretation I performed an independent interpretation of an: CT Scan (CT/CT abdomen pelvis wo IV con IMPRESSION: 1. No interval change in size of the L4-L5 junction level midline medium-sized ventral hernia containing multiple ileal loops and mesentery. 2. Unchanged bilateral multiple nonobstructive renal calculi. No hydronephrosis or hydroureter is seen. 3. No urin) Radiology Impression Discussion of test interpretation with radiology: I have reviewed the radiologist's reading. Prescription Management I considered prescription management with: Other (Meclizine) Critical Care Time Critical Care Time Critical Care Time: No Discharge Plan Discharge Clinical Impression: Dizziness, Abdominal wall hernia Patient Disposition: Home, Self-Care Instructions: Vertigo (ED), Dizziness (ED), Ventral Hernia (ED) Additional Instructions: Take your medications as prescribed. If you were prescribed antibiotics today, it is important that you take your medication to their entirety, do not skip any doses, do not finish them early. Follow-up with your primary care provider this week. Return to the emergency department with new or worsening symptoms. Such as fevers, chills, chest pain, shortness of breath, nausea, vomiting, dizziness, headache, vision changes, lethargy In case of emergency call 911 CT/CT abdomen pelvis wo IV con IMPRESSION: 1. No interval change in size of the L4-L5 junction level midline medium-sized ventral hernia containing multiple ileal loops and mesentery. 2. Unchanged bilateral multiple nonobstructive renal calculi. No hydronephrosis or hydroureter is seen. 3. No urinary bladder stone or distal ureteric stone is found. 4. Unchanged extensive severe colon diverticulosis without inflammation. 5. Unchanged hepatic steatosis. Prescriptions: New meclizine 25 mg tablet 25 mg PO DAILY PRN (Reason: dizziness) Qty: 14 0RF No Action levothyroxine [Synthroid] 75 mcg tablet 1 tab PO DAILY insulin glargine [Basaglar KwikPen U-100 Insulin] 100 unit/mL (3 mL) insulin pen 30 unit subcut QAM fluticasone propionate [Flonase Allergy Relief] 50 mcg/actuation spray,suspension 2 spray intranasal DAILY Qty: 16 0RF Rx Instructions: administer into each nostril oxycodone-acetaminophen [Percocet] 5-325 mg tablet 1 tab PO Q4-6H PRN (Reason: pain) Qty: 30 0RF Rx Instructions: Partial Fill upon patient request. ibuprofen 600 mg tablet 600 mg PO Q6H PRN (Reason: pain) Qty: 30 0RF benzonatate 200 mg capsule 200 mg PO BID PRN (Reason: cough) Qty: 10 0RF doxycycline hyclate 100 mg capsule 100 mg PO BID 7 Days Qty: 14 0RF acetaminophen 500 mg tablet 1,000 mg PO QID PRN (Reason: pain) Qty: 30 0RF Trulicity 1.5 mg/0.5 mL pen injector 1.5 mg subcut QWEEK Referrals: El Rao MD [Primary Care Provider] - 2 days [facility] [Provider Group] - 3 days Stand Alone Forms: Work/School Release
[2023-05-18 11:51] VITALS: BP 140/76; PULSE 84; RESP 16; O2SAT 98
[2023-05-18 11:52] VITALS: BP 131/80; BP 136/74; BP 140/74; PULSE 84; PULSE 86; PULSE 93
[2023-05-18 12:10] LABS: MANUAL DIFF FLAG NO
[2023-05-18 12:12] LABS: Basophils Absolute Auto 0.1 X10*3/uL (0.0-0.2); Basophils Percent Auto 0.6 % (0-2); Eosinophils Absolute Auto 0.1 X10*3/uL (0.0-0.4); Eosinophils Percent Auto 1.4 % (0-4); Hematocrit 38.9 % (37.0-47.0); Hemoglobin 13.2 g/dl (12.0-16.0); Imm Gran Abs Auto 0.03 X10*3/uL (0.00-0.03); Imm Gran Pct Auto 0.4 % (0.0-0.4); Mean Corpuscular HGB Conc 33.9 g/dl (31.0-35.0); Mean Corpuscular Hemoglobin 29.9 pg (27.0-33.0); Mean Corpuscular Volume 88.2 fL (80.0-98.0); Mean Platelet Volume 10.6 fL (9.4-12.3); Monocytes Absolute Auto 0.5 X10*3/uL (0.1-1.2); Monocytes Percent Auto 6.5 % (2-11); Neutrophils Absolute Auto 4.2 x10*3/uL (2.0-8.3); Neutrophils Percent Auto 53.1 % (45-73); Platelet Count 282 X10*3/uL (160-400); Red Blood Count 4.41 X10*6/uL (4.20-5.50); Red Cell Distribution Width 12.4 % (11.0-16.0); White Blood Count 7.8 X10*3/uL (4.8-10.8)
[2023-05-18 12:25] LABS: Alanine Aminotransferase 26 U/L (0-31); Albumin Level 3.6 g/dL (3.5-5.0); Alkaline Phosphatase 96 U/L (39-117); Anion Gap 14 (12-20); Aspartate Amino Transferase 27 U/L (5-31); Bilirubin Total 0.4 mg/dL (0.0-1.0); Blood Urea Nitrogen 12 mg/dL (9-16); Calcium 9.6 mg/dL (8.4-10.2); Carbon Dioxide 26 mmol/L (22-29); Chloride 104 mmol/L (96-108); Creatinine Clr Calc Pharmacy 59.5; Estimated Glomerular Filt Rate 58; Glucose Random 259 mg/dL (60-115); Lipase 95 U/L (8-78); Potassium 4.1 mmol/L (3.3-5.1); Sodium 140 mmol/L (135-145); Total Protein 7.6 g/dL (6.5-8.0)
[2023-05-18 13:47] VITALS: BP 127/77; PULSE 79; RESP 16; O2SAT 98
[2023-05-18] MEDS: 0.9 % Sodium Chloride 1,000 ML 999 ML IV (13:56)
[2023-05-18] MEDS: Meclizine HCl 25 MG TABLET PO (13:56)
--- NOTE | 2023-05-18 13:58 | PC.NURSE ---
pt a&ox4, vss, reporting dizziness with head position changed, 20G IV placed left AC by PA student, NS running, medicated per SEP. no new orders at this time.
--- NOTE | 2023-05-18 15:19 | PC.NURSE ---
pt reports some improvement in dizziness after meclazine and fluids. resting quietly, pending CT results.
[2023-05-18 15:28] VITALS: BP 143/86; PULSE 76; RESP 18; O2SAT 99
[2023-05-18 15:44] LABS: Appearance Urine Clear; Color Urine Yellow; Glucose Urine UA Negative (Negative); Leukocyte Esterase Urine Trace (Negative); Nitrite Urine Negative (Negative); Specific Gravity - Urine <= 1.005 (1.005-1.025); UMIC TRIGGER UACC YES; Urine Blood Negative (Negative); Urine Ketones Negative (Negative); Urine Protein Negative (Neg-Trace)
[2023-05-18 15:51] LABS: Bacteria Urine None Seen (None Seen); RBC Urine 0-2 /HPF (0-2); Squamous Epithelial Cell Urine 0-2 /HPF (0-2); WBC Urine 0-5 /HPF (0-5)
== END 2023-05-18 15:32 | disposition home or self-care (01) ==
PROVIDERS: Physician Assistant; Emergency Provider Emergency Medicine; PCP Internal Medicine
DX: K43.9 Ventral hernia without obstruction or gangrene (principal); R42 Dizziness and giddiness; R11.2 Nausea with vomiting, unspecified; E11.9 Type 2 diabetes mellitus without complications; Z79.899 Other long term (current) drug therapy; Z79.4 Long term (current) use of insulin
CPT/HCPCS: 36415; 74176; 80053; 81001; 83690; 85025; 93005; 96360; 99284; 99285

== ENCOUNTER 2023-12-18 16:00 | Emergency (ER) | payer MEDICAID, SELFPAY ==
[2023-12-18 16:07] VITALS: BP 130/77; PULSE 96; RESP 18; TEMP 36.6; O2SAT 98; BMI 31.2
--- NOTE | 2023-12-18 16:08 | ED.GENADULT ---
HPI - General Adult General Chief complaint: Abdominal Pain Stated complaint: back pain, hernia Related Data Home Medications ?Medication ?Instructions ?Recorded ?Confirmed dulaglutide 1.5 mg/0.5 mL 1.5 mg subcut QWEEK 10/11/21 10/10/22 subcutaneous pen injector (Trulicity) insulin glargine 100 unit/mL (3 30 unit subcut QAM 12/17/21 10/10/22 mL) subcutaneous pen (Basaglar KwikPen U-100 Insulin) levothyroxine 75 mcg tablet 1 tab PO DAILY 12/17/21 10/10/22 (Synthroid) Previous Rx's ?Medication ?Instructions ?Recorded fluticasone propionate 50 2 spray intranasal DAILY #16 grams 07/18/22 mcg/actuation nasal spray,suspension (Flonase Allergy Relief) ibuprofen 600 mg tablet 600 mg PO Q6H PRN pain #30 tabs 09/27/22 oxycodone-acetaminophen 5 mg-325 1 tab PO Q4-6H PRN pain #30 tabs 09/27/22 mg tablet (Percocet) acetaminophen 500 mg tablet 1,000 mg (2 x 500 mg) PO QID PRN 10/30/22 pain #30 tabs benzonatate 200 mg capsule 200 mg PO BID PRN cough #10 caps 10/30/22 doxycycline hyclate 100 mg capsule 100 mg PO BID 7 days #14 caps 10/30/22 meclizine 25 mg tablet 25 mg PO DAILY PRN dizziness #14 05/18/23 tabs Allergies Allergy/AdvReac Type Severity Reaction Status Date / Time shellfish derived Allergy Severe severe Verified 12/18/23 16:11 throat itching nickel Allergy Unknown Verified 12/18/23 16:11 [facility] Past Medical History Medical History Ventral hernia PONV (postoperative nausea and vomiting) COVID-19 vaccine series completed Arthritis Hypothyroid Diabetes History of COVID-19 Recurrent hernia High cholesterol Diabetic acidosis, type II Surgical History H/O colonoscopy Hx of lumbar discectomy Hx of umbilical hernia repair (09/27/22) Social History Social History Household Members: Family Housing: House Are you a primary property caretaker to a significant other at home: No Do you presently have visiting nurse or other home services: No Alcohol intake: never Patient Tobacco Use Status: Never used Tobacco Tobacco use type: Cigarette Advance Directives: No Advance Directives Information Provided: No Do you have a plan to hurt others: No Plan service: No Physical Exam ED Vital Signs: BMI result Body Mass Index 31.2 Course Course Course Narrative: This is a rapid medical exam performed by Carlo Leung NP: Additional HPI, ROS, PE not included below will be deferred to primary provider. Patient is a 58-year-old female presenting to the ED with complaint of abdominal hernia and lower back pain for the past 2 months. Nausea without vomiting or diarrhea. History of multiple hernia repairs with mesh in the past with Dr. Ellis, most recent in September of 2022. Has not called the surgery office regarding symptoms due to insurance issues. Plan: labs, UA Medical Decision Making Lab Data 12/18/23 16:33 12/18/23 16:33 Labs: Lab Results 12/18/23 Range/Units 16:33 WBC 8.6 (4.8-10.8) X10*3/uL RBC 4.26 (4.20-5.50) X10*6/uL Hgb 13.3 (12.0-16.0) g/dl Hct 37.8 (37.0-47.0) % MCV 88.7 (80.0-98.0) fL MCH 31.2 (27.0-33.0) pg MCHC 35.2 H (31.0-35.0) g/dl RDW 12.6 (11.0-16.0) % Plt Count 290 (160-400) X10*3/uL MPV 10.9 (9.4-12.3) fL Immature Gran % (Auto) 0.5 H (0.0-0.4) % Neut % (Auto) 59.7 (45-73) % Lymph % (Auto) 31.6 (20-40) % [place] % (Auto) 5.1 (2-11) % Eos % (Auto) 2.6 (0-4) % Baso % (Auto) 0.5 (0-2) % Lymph # (Auto) 2.7 (1.2-4.9) X10*3/uL [place] # (Auto) 0.4 (0.1-1.2) X10*3/uL Eos # (Auto) 0.2 (0.0-0.4) X10*3/uL Baso # (Auto) 0.0 (0.0-0.2) X10*3/uL Abs Immat Gran (auto) 0.04 H (0.00-0.03) X10*3/uL Absolute Neuts (auto) 5.1 (2.0-8.3) x10*3/uL Absolute Nucleated RBC 0.000 (0.0-0.012) X10*3/uL Nucleated RBC % (auto) 0.0 (0.0-0.2) /100WBC Sodium 137 (135-145) mmol/L Potassium 4.1 (3.3-5.1) mmol/L Chloride 102 (96-108) mmol/L Carbon Dioxide 28 (22-29) mmol/L Anion Gap 11 L (12-20) BUN 14 (9-16) mg/dL Creatinine 1.10 (0.5-1.4) mg/dL Estim Creat Clear Calc 51.5 Estimated GFR 51 Random Glucose 435 H* (60-115) mg/dL Calcium 9.1 (8.4-10.2) mg/dL Total Bilirubin 0.4 (0.0-1.0) mg/dL AST 24 (5-31) U/L ALT 25 (0-31) U/L Alkaline Phosphatase 99 (39-117) U/L Total Protein 7.2 (6.5-8.0) g/dL Albumin 3.6 (3.5-5.0) g/dL Discharge Plan Discharge Clinical Impression: Diagnosis unknown Patient Disposition: Left W/O Completing Treatment Prescriptions: No Action levothyroxine [Synthroid] 75 mcg tablet 1 tab PO DAILY insulin glargine [Basaglar KwikPen U-100 Insulin] 100 unit/mL (3 mL) insulin pen 30 unit subcut QAM fluticasone propionate [Flonase Allergy Relief] 50 mcg/actuation spray,suspension 2 spray intranasal DAILY Qty: 16 0RF Rx Instructions: administer into each nostril oxycodone-acetaminophen [Percocet] 5-325 mg tablet 1 tab PO Q4-6H PRN (Reason: pain) Qty: 30 0RF Rx Instructions: Partial Fill upon patient request. ibuprofen 600 mg tablet 600 mg PO Q6H PRN (Reason: pain) Qty: 30 0RF benzonatate 200 mg capsule 200 mg PO BID PRN (Reason: cough) Qty: 10 0RF doxycycline hyclate 100 mg capsule 100 mg PO BID 7 Days Qty: 14 0RF acetaminophen 500 mg tablet 1,000 mg PO QID PRN (Reason: pain) Qty: 30 0RF meclizine 25 mg tablet 25 mg PO DAILY PRN (Reason: dizziness) Qty: 14 0RF Trulicity 1.5 mg/0.5 mL pen injector 1.5 mg subcut QWEEK Discharge Date/Time: 12/18/23 21:50
[2023-12-18 16:38] LABS: MANUAL DIFF FLAG NO
[2023-12-18 17:00] LABS: Basophils Percent Auto 0.5 % (0-2); Eosinophils Absolute Auto 0.2 X10*3/uL (0.0-0.4); Eosinophils Percent Auto 2.6 % (0-4); Hematocrit 37.8 % (37.0-47.0); Hemoglobin 13.3 g/dl (12.0-16.0); Imm Gran Abs Auto 0.04 X10*3/uL (0.00-0.03); Imm Gran Pct Auto 0.5 % (0.0-0.4); Lymphocytes Absolute Auto 2.7 X10*3/uL (1.2-4.9); Lymphocytes Percent Auto 31.6 % (20-40); Mean Corpuscular HGB Conc 35.2 g/dl (31.0-35.0); Mean Corpuscular Hemoglobin 31.2 pg (27.0-33.0); Mean Corpuscular Volume 88.7 fL (80.0-98.0); Mean Platelet Volume 10.9 fL (9.4-12.3); Monocytes Absolute Auto 0.4 X10*3/uL (0.1-1.2); Monocytes Percent Auto 5.1 % (2-11); Neutrophils Absolute Auto 5.1 x10*3/uL (2.0-8.3); Neutrophils Percent Auto 59.7 % (45-73); Platelet Count 290 X10*3/uL (160-400); Red Blood Count 4.26 X10*6/uL (4.20-5.50); Red Cell Distribution Width 12.6 % (11.0-16.0); White Blood Count 8.6 X10*3/uL (4.8-10.8)
[2023-12-18 17:17] LABS: Alanine Aminotransferase 25 U/L (0-31); Albumin Level 3.6 g/dL (3.5-5.0); Alkaline Phosphatase 99 U/L (39-117); Anion Gap 11 (12-20); Aspartate Amino Transferase 24 U/L (5-31); Bilirubin Total 0.4 mg/dL (0.0-1.0); Blood Urea Nitrogen 14 mg/dL (9-16); Calcium 9.1 mg/dL (8.4-10.2); Carbon Dioxide 28 mmol/L (22-29); Chloride 102 mmol/L (96-108); Creatinine Clr Calc Pharmacy 51.5; Estimated Glomerular Filt Rate 51; Glucose Random 435 mg/dL (60-115); Potassium 4.1 mmol/L (3.3-5.1); Sodium 137 mmol/L (135-145); Total Protein 7.2 g/dL (6.5-8.0)
== END 2023-12-18 21:50 | disposition left against medical advice (07) ==
LOC: HO.ED 21:38
PROVIDERS: Registered Nurse Emergency; Emergency Provider Emergency Medicine; PCP Internal Medicine
DX: M54.50 Low back pain, unspecified (principal); K46.9 Unspecified abdominal hernia without obstruction or gangrene; E11.9 Type 2 diabetes mellitus without complications; Z87.19 Personal history of other diseases of the digestive system
CPT/HCPCS: 36415; 80053; 85025; 99281; 99283

== ENCOUNTER 2024-01-11 14:13 | Outpatient (AMB) | payer MEDICAID, SELFPAY ==
[2024-01-11 14:18] VITALS: BP 134/68; PULSE 111; BMI 32.7
--- NOTE | 2024-01-11 14:18 | A.OFFVIS_ITS ---
Vital Signs 01/11/24 14:18 Height 5 ft 1 in Weight 173 lb BMI 32.7 BP 134/68 Blood Pressure Location Rt brachial Position Sitting Pulse 111 H Intake Visit Reasons: Recurrent umbilical hernia Intake Note: This patient presents for an assessment for recurrent umbilical hernia. Patient c/o; reports recurrent umbilical hernia and another one next to this hernia, reports has bulge umbilical region, reports straining with bowel movements. Family Nurse Practitioner Required: No Accompanied by: Self / Same As Patient Allergies shellfish derived Allergy (Severe, Verified 01/11/24 14:38) severe throat itching nickel Allergy (Verified 01/11/24 14:38) Unknown Medication List - Last Reconciled 01/11/24 by El Ellis MD acetaminophen 1,000 mg (2 x 500 mg) PO QID PRN benzonatate 200 mg PO BID PRN doxycycline hyclate 100 mg PO BID 7 days dulaglutide (Trulicity) 1.5 mg subcut QWEEK fluticasone propionate 50 mcg/actuation (Flonase Allergy Relief) 2 sprays intranasal DAILY ibuprofen 600 mg PO Q6H PRN insulin glargine (Basaglar KwikPen U-100 Insulin) 30 units subcut QAM levothyroxine (Synthroid) 1 tab PO DAILY meclizine 25 mg PO DAILY PRN oxycodone-acetaminophen 5-325 mg (Percocet) 1 tab PO Q4-6H PRN HPI HPI Recurrent umbilical hernia: Details: She had undergone repair of a recurrent incisional hernia last September, with mesh. She tolerated procedure well. She had been doing well when I last saw her. However, she says for the past few weeks, she has been noticing this new reducible mass on her umbilicus. She describes a bit of discomfort although without any pain. She has good oral intake and denies GI complaints. [facility] Medical History Ventral hernia PONV (postoperative nausea and vomiting) COVID-19 vaccine series completed Arthritis Hypothyroid Diabetes History of COVID-19 Recurrent hernia High cholesterol Diabetic acidosis, type II Surgical History H/O colonoscopy Hx of lumbar discectomy Hx of umbilical hernia repair (09/27/22) Social History Household Members: Family Housing: House Are you a primary career services manager to a significant other at home: No Do you presently have visiting nurse or other home services: No Alcohol intake: never Patient Tobacco Use Status: Never used Tobacco Tobacco use type: Cigarette service: No Review of Systems Const Denies chills and Denies fever(s) Card Denies chest pain, Denies dyspnea and Denies dyspnea on exertion Resp Denies cough, Denies dyspnea and Denies dyspnea on exertion GI Denies hematochezia and Denies change in bowel habits Denies hematuria Musc Denies back pain and Denies limited range of motion Neuro Denies focal weakness and Denies convulsions Psych Denies depression and Denies mood swings Physical Exam Vital Signs: Last Vital Signs Pulse 111 H 01/11/24 14:18 BP 134/68 01/11/24 14:18 BMI result Body Mass Index 32.7 Const Other: With significant truncal obesity General: comfortable and no acute distress Resp Effort & Inspection: normal respiratory effort Cardio Rate: regular rate GI Other: Large pannus and truncal obesity, with note of a palpable reducible umbilical hernia; the previous hernia repair site on the right side seems to be intact Assessment & Plan Assessment & Plan (1) Ventral hernia: Code(s): K43.9 - Ventral hernia without obstruction or gangrene Category: Medical Plan: She seems to have another hernia this time on the umbilicus. This may be part of a recurrence of her previous hernia. I am going to order for a CAT scan to define this her fascial defects. She does have truncal obesity and has a thick subcutaneous fat and a pannus We will see her in the office to discuss her CT scan findings. She is comfortable with the plan. Orders: Orders CT abdomen pelvis wo IV con Today K43.9 - Ventral hernia without obstruction or gangrene Coding Level of Care Code Est Pt Level 3 (47857) Diagnoses Ventral hernia K43.9
== END 2024-01-11 14:49 | disposition home or self-care (01) ==
PROVIDERS: PCP Internal Medicine; Referring Provider Internal Medicine; Visit Provider Surgery
DX: K43.9 Ventral hernia without obstruction or gangrene (principal)
CPT/HCPCS: 99213

== ENCOUNTER → 2024-01-11 14:13 | Outpatient (BNVA) | payer MEDICAID, SELFPAY | PROVIDERS: PCP Internal Medicine; Visit Provider Surgery | DX: K43.9 Ventral hernia without obstruction or gangrene (principal) | CPT/HCPCS: 99212 ==

== ENCOUNTER 2024-01-23 07:59 | Outpatient (REF) | payer MEDICAID, SELFPAY | END 2024-01-23 08:00 | disposition home or self-care (01) | LOC: HO.MAMMO 07:59 | PROVIDERS: PCP Internal Medicine; Visit Provider Internal Medicine | DX: Z12.31 Encounter for screening mammogram for malignant neoplasm of breast (principal) | CPT/HCPCS: 77063; 77067 ==

== ENCOUNTER → 2024-01-23 08:15 | Outpatient (BNV) | payer MEDICAID, SELFPAY | PROVIDERS: PCP Internal Medicine; Visit Provider Radiology Diagnostic Radiology | DX: Z12.31 Encounter for screening mammogram for malignant neoplasm of breast (principal) | CPT/HCPCS: 77063; 77067 ==

== ENCOUNTER 2024-02-15 07:42 | Outpatient (REF) | payer MEDICAID, SELFPAY ==
[2024-02-15 07:53] LABS: MANUAL DIFF FLAG NO
[2024-02-15 08:12] LABS: Basophils Absolute Auto 0.1 X10*3/uL (0.0-0.2); Basophils Percent Auto 0.8 % (0-2); Eosinophils Absolute Auto 0.2 X10*3/uL (0.0-0.4); Eosinophils Percent Auto 2.1 % (0-4); Hematocrit 40.3 % (37.0-47.0); Hemoglobin 13.9 g/dl (12.0-16.0); Imm Gran Abs Auto 0.03 X10*3/uL (0.00-0.03); Imm Gran Pct Auto 0.4 % (0.0-0.4); Lymphocytes Absolute Auto 3.2 X10*3/uL (1.2-4.9); Lymphocytes Percent Auto 42.3 % (20-40); Mean Corpuscular HGB Conc 34.5 g/dl (31.0-35.0); Mean Corpuscular Hemoglobin 30.7 pg (27.0-33.0); Mean Platelet Volume 10.8 fL (9.4-12.3); Monocytes Absolute Auto 0.5 X10*3/uL (0.1-1.2); Monocytes Percent Auto 6.5 % (2-11); Neutrophils Absolute Auto 3.6 x10*3/uL (2.0-8.3); Neutrophils Percent Auto 47.9 % (45-73); Platelet Count 288 X10*3/uL (160-400); Red Blood Count 4.53 X10*6/uL (4.20-5.50); Red Cell Distribution Width 12.5 % (11.0-16.0); White Blood Count 7.5 X10*3/uL (4.8-10.8)
[2024-02-15 08:19] LABS: Estimated Average Glucose 286 mg/dL; Hemoglobin A1c % 11.6 % (<6.0)
[2024-02-15 08:45] LABS: Alanine Aminotransferase 27 U/L (0-31); Albumin Level 3.6 g/dL (3.5-5.0); Alkaline Phosphatase 96 U/L (39-117); Anion Gap 14 (12-20); Aspartate Amino Transferase 29 U/L (5-31); Bilirubin Total 0.6 mg/dL (0.0-1.0); Blood Urea Nitrogen 11 mg/dL (9-16); Calcium 9.8 mg/dL (8.4-10.2); Carbon Dioxide 26 mmol/L (22-29); Chloride 102 mmol/L (96-108); Cholesterol 246 mg/dL (<200); Estimated Glomerular Filt Rate 51; Glucose Fasting 323 mg/dL (60-99); HDL Cholesterol 35 mg/dL (>40); LDL Cholesterol Calculated 156 mg/dL (<100); Potassium 3.8 mmol/L (3.3-5.1); Sodium 138 mmol/L (135-145); Total Protein 7.4 g/dL (6.5-8.0); Triglycerides 278 mg/dL (<150)
[2024-02-15 08:49] LABS: Microalbum/Creatinine Ratio Ur 6.6 ug/mg cr (<30)
[2024-02-15 09:01] LABS: Free T4 (Free Thyroxine) 1.18 ng/dL (0.71-1.85); Thyroid Stimulating Hormone 3.83 uIU/mL (0.32-4.0)
== END 2024-02-15 07:43 | disposition home or self-care (01) ==
LOC: HO.LAB 07:42
PROVIDERS: PCP Internal Medicine; Visit Provider Internal Medicine
DX: E11.9 Type 2 diabetes mellitus without complications (principal); E78.00 Pure hypercholesterolemia, unspecified; E03.9 Hypothyroidism, unspecified
CPT/HCPCS: 36415; 80053; 80061; 82043; 82570; 83036; 84439; 84443; 85025

== ENCOUNTER 2024-02-16 10:37 | Outpatient (REF) | payer MEDICAID, SELFPAY ==
--- NOTE | ~2024-02-16 | CT_ITS ---
EXAMINATION: CT ABDOMEN AND PELVIS WITHOUT CONTRAST CLINICAL INFORMATION: Ventral hernia without obstruction or gangrene. COMPARISON: None available. TECHNIQUE: Multidetector volumetric imaging was performed from the superior aspect of the liver through the pubic symphysis. Sagittal and coronal reformatted images were obtained on the technologist's workstation. This CT examination was performed using dose optimization techniques as appropriate, variously including the following: *Automated exposure control *Adjustment of mA and/or kV according to patient size (this includes techniques or standardized protocols for targeted exams where dose is matched to indication/reason for exam; i.e. extremities or head) *Use of iterative reconstruction technique DLP: 530 mGy-cm FINDINGS: LUNG BASES: The visualized lung bases are unremarkable. LIVER, GALLBLADDER, AND BILIARY TREE: Enlarged liver measuring 19.1 cm right lobe length. Likely mild hepatic steatosis. No discrete liver mass. No biliary ductal dilatation. Gallbladder appears normal. PANCREAS: No discrete pancreatic mass. No pancreatic ductal dilatation. SPLEEN: The spleen is not enlarged. ADRENAL GLANDS: No adrenal mass. KIDNEYS AND URETERS: Multiple nonobstructing bilateral renal calculi do not appear significantly changed compared to 05/18/2023. There is no hydronephrosis. No visible renal mass. BLADDER: Unremarkable. GASTROINTESTINAL TRACT: The small and large bowel are normal in caliber. The appendix appears normal. There is dumont colonic diverticulosis without evidence of acute diverticulitis. ABDOMINAL WALL: Large periumbilical hernia containing unobstructed small bowel and abdominal fat. The sac measures 12.5 x 7.1 x 8.4 cm. The fascial defect measures 6.1 x 4.5 cm.. LYMPH NODES: No pathologically enlarged lymph nodes. VASCULAR: No aortic aneurysm. PELVIC VISCERA: Unremarkable. OSSEOUS STRUCTURES: Degenerative changes in the spine. No destructive osseous lesions. CT/CT abdomen pelvis wo IV con IMPRESSION: Large periumbilical hernia containing unobstructed small bowel with measurements as above. Other incidental and chronic findings as above. Fleischner guidelines were followed.
== END 2024-02-16 10:38 | disposition home or self-care (01) ==
LOC: HO.CT 10:37
PROVIDERS: PCP Internal Medicine; Visit Provider Surgery
DX: K43.9 Ventral hernia without obstruction or gangrene (principal)
CPT/HCPCS: 74176

== ENCOUNTER 2024-03-07 13:00 | Outpatient (AMB) | payer MEDICAID, SELFPAY ==
--- NOTE | 2024-03-07 13:04 | MHC.OFFVIS ---
Vital Signs 03/07/24 13:11 Height 5 ft 1 in Weight 173 lb 4 oz BMI 32.7 BP 129/76 Blood Pressure Location Rt brachial Position Sitting Pulse 96 Intake Visit Reasons: Ct-Scan results Intake Note: This patient presents for Ct-Scan results. Pt c/o; reports no complaints. 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 She has had multiple repair for an umbilical hernia in the past along with Ventralex mesh. Her last surgery was actually last September, She had noticed some recurrence of the lump again on the area of the umbilicus for about 3 [address] I sent her [address] scan. This does show a hernia with a fascial defect measuring 7 cm, and with involvement of bowel loops. She describes discomfort of the area. She describes being chronically constipated She has known truncal obesity. 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 [facility] Medical History (Updated 03/07/24 @ 13:46 by El Ellis MD) Recurrent incisional hernia Ventral hernia PONV (postoperative nausea and vomiting) COVID-19 vaccine series completed Arthritis Hypothyroid Diabetes History of COVID-19 Recurrent hernia High cholesterol Diabetic acidosis, type II Surgical History H/O colonoscopy Hx of lumbar discectomy Hx of umbilical hernia repair (09/27/22) Social History Household Members: Family Housing: House Are you a primary healthcare interpreter to a significant other at home: No Do you presently have visiting nurse or other home services: No Alcohol intake: never Patient Tobacco Use Status: Never used Tobacco Tobacco use type: Cigarette service: No Review of Systems Const Denies chills and Denies fever(s) Card Denies chest pain, Denies dyspnea and Denies dyspnea on exertion Resp Denies cough, Denies dyspnea and Denies dyspnea on exertion GI Denies hematochezia, Denies change in bowel habits and Reports constipation Denies hematuria Musc Denies back pain and Denies limited range of motion Neuro Denies focal weakness and Denies convulsions Psych Denies depression and Denies mood swings Physical Exam Vital Signs: Last Vital Signs Pulse 96 03/07/24 13:11 BP 129/76 03/07/24 13:11 BMI result Body Mass Index 32.7 Const General: comfortable and no acute distress Orientation/consciousness: patient oriented x3 Neck Neck: Yes no lymphadenopathy Resp Auscultation: clear to auscultation bilaterally Cardio Rhythm: regular rhythm GI Other: Large partially reducible hernia at the level of the umbilicus, Palpation (GI): Soft to palpation, nontender and no guarding Neuro General: patient oriented x3 Assessment & Plan Assessment & Plan (1) Recurrent incisional hernia: Code(s): K43.2 - Incisional hernia without obstruction or gangrene Category: Medical Plan: She again has another recurrence of her previous incisional hernia. The CT scan reveals a defect almost 7 cm in diameter. There was note of small bowel loops within the hernia She describes discomfort with this so she wants to proceed with another repair. I had a long discussion with her about the technique of here with mesh. I reviewed the risks including but not limited to bleeding, infections, bowel injury, recurrence, postop pain, as well as the benefits and alternatives. She understands that in view of her truncal obesity, she is at risk for recurrences She wants to proceed She will be admitted postoperatively for extended stay because of the large hernia. She is on Trulicity for diabetes so this will be held 1 week prior to the procedure. Coding Level of Care Code Est Pt Level 3 (11665) Diagnoses Recurrent incisional hernia K43.2
[2024-03-07 13:11] VITALS: BP 129/76; PULSE 96; BMI 32.7
== END 2024-03-07 13:42 | disposition home or self-care (01) ==
PROVIDERS: PCP Internal Medicine; Visit Provider Surgery
DX: K43.2 Incisional hernia without obstruction or gangrene (principal)
CPT/HCPCS: 99214

== ENCOUNTER → 2024-03-07 13:00 | Outpatient (BNVA) | payer MEDICAID, SELFPAY | PROVIDERS: PCP Internal Medicine; Visit Provider Surgery | DX: K43.2 Incisional hernia without obstruction or gangrene (principal); E66.09 Other obesity due to excess calories; Z68.32 Body mass index [BMI] 32.0-32.9, adult | CPT/HCPCS: 99212 ==

== ENCOUNTER 2024-03-20 16:02 | Outpatient (REF) | payer MEDICAID, SELFPAY ==
[2024-03-20 18:47] LABS: Anion Gap 12 (12-20); Blood Urea Nitrogen 12 mg/dL (9-16); Calcium 10.2 mg/dL (8.4-10.2); Carbon Dioxide 28 mmol/L (22-29); Chloride 104 mmol/L (96-108); Estimated Glomerular Filt Rate 60; Glucose Random 159 mg/dL (60-115); Sodium 140 mmol/L (135-145)
[2024-03-21 05:15] LABS: Estimated Average Glucose 263 mg/dL; Hemoglobin A1c % 10.8 % (<6.0)
== END 2024-03-20 16:03 | disposition home or self-care (01) ==
LOC: HO.LAB 16:02
PROVIDERS: PCP Internal Medicine; Visit Provider Internal Medicine
DX: Z01.818 Encounter for other preprocedural examination (principal); E11.9 Type 2 diabetes mellitus without complications
CPT/HCPCS: 36415; 80048; 83036

== ENCOUNTER 2024-04-19 12:10 | Outpatient (REF) | payer MEDICAID, SELFPAY ==
[2024-04-19 13:32] LABS: Anion Gap 10 (12-20); Blood Urea Nitrogen 11 mg/dL (9-16); Calcium 9.6 mg/dL (8.4-10.2); Carbon Dioxide 28 mmol/L (22-29); Chloride 106 mmol/L (96-108); Estimated Glomerular Filt Rate > 60; Glucose Random 189 mg/dL (60-115); Potassium 4.1 mmol/L (3.3-5.1); Sodium 140 mmol/L (135-145)
[2024-04-19 14:15] LABS: Estimated Average Glucose 217 mg/dL; Hemoglobin A1c % 9.2 % (<6.0)
== END 2024-04-19 12:11 | disposition home or self-care (01) ==
LOC: HO.LAB 12:10
PROVIDERS: PCP Internal Medicine; Visit Provider Internal Medicine
DX: E11.9 Type 2 diabetes mellitus without complications (principal)
CPT/HCPCS: 36415; 80048; 83036

== ENCOUNTER 2024-06-14 13:57 | Outpatient (REF) | payer MEDICAID, SELFPAY ==
[2024-06-14 14:49] LABS: Estimated Average Glucose 200 mg/dL; Hemoglobin A1C 237.9822 umol/L; Hemoglobin A1c % 8.6 % (<6.0)
[2024-06-14 15:03] LABS: Anion Gap 10 (12-20); Blood Urea Nitrogen 9 mg/dL (9-16); Calcium 9.2 mg/dL (8.4-10.2); Carbon Dioxide 27 mmol/L (22-29); Chloride 104 mmol/L (96-108); Estimated Glomerular Filt Rate > 60; Glucose Random 317 mg/dL (60-115); Potassium 3.9 mmol/L (3.3-5.1); Sodium 137 mmol/L (135-145)
== END 2024-06-14 13:58 | disposition home or self-care (01) ==
LOC: HO.LAB 13:57
PROVIDERS: PCP Internal Medicine; Visit Provider Internal Medicine
DX: E11.9 Type 2 diabetes mellitus without complications (principal)
CPT/HCPCS: 36415; 80048; 83036

== ENCOUNTER 2024-11-21 13:08 | Emergency (ER) | payer OTHER, SELFPAY ==
--- NOTE | ~2024-11-21 | XR_ITS ---
CLINICAL HISTORY: low back pain 3 views lumbar spine Comparison: None Findings: Normal alignment. No acute fractures or dislocation. There are significant degenerative disc changes at L4-L5 and L5-S1. There is aortic calcification IMPRESSION: No acute findings. This document has been electronically signed by: Rohit England MD on 11/21/2024 18:33:16
[2024-11-21 13:43] VITALS: BP 130/76; PULSE 88; RESP 16; TEMP 36.4; O2SAT 98; BMI 35.0
--- NOTE | 2024-11-21 13:51 | ED.GENADULT ---
HPI - General Adult General Chief complaint: General Medical Stated complaint: kidney pain Time Seen by Provider: 11/21/24 17:19 History of Present Illness ED Provider: Karri MELCHOR narrative: The patient is a 59-year-old woman who says she has been having problems with low back pain for several months. It has been worse over the last few weeks and considerably worse over the last few days. She feels it on both sides of her lower back, more on the right side. No fever, sweats, chills. No dysuria. No nausea or vomiting. She is concerned because she recently got some records from her previous PCP that indicated she had compromised kidney function. This was not something she had known. She comes to the emergency room for evaluation of her back pain and they are concerned about her kidney function. She has a new the patient appointment with a new primary care doctor next week. Related Data Home Medications ?Medication ?Instructions ?Recorded ?Confirmed dulaglutide 1.5 mg/0.5 mL 1.5 mg subcut QWEEK 10/11/21 03/18/24 subcutaneous pen injector (Trulicity) insulin glargine 100 unit/mL (3 30 unit subcut QAM 12/17/21 03/18/24 mL) subcutaneous pen (Basaglar KwikPen U-100 Insulin) levothyroxine 75 mcg tablet 1 tab PO DAILY 12/17/21 03/18/24 (Synthroid) insulin aspart U-100 100 unit/mL 1 sliding scale dose subcut 03/18/24 03/18/24 (3 mL) subcutaneous pen (Novolog USEASDIRECTD FlexPen U-100 Insulin aspart) Previous Rx's ?Medication ?Instructions ?Recorded ibuprofen 600 mg tablet 600 mg PO Q6H PRN pain #30 tabs 09/27/22 oxycodone-acetaminophen 5 mg-325 1 tab PO Q4-6H PRN pain #30 tabs 09/27/22 mg tablet (Percocet) docusate sodium 100 mg capsule 100 mg PO BID #60 caps 06/19/24 acetaminophen 500 mg capsule 1,000 mg (2 x 500 mg) PO Q8H PRN 11/21/24 fever or pain #14 caps cyclobenzaprine 10 mg tablet 10 mg PO TID PRN muscle spasm #14 11/21/24 tabs Allergies Allergy/AdvReac Type Severity Reaction Status Date / Time shellfish derived Allergy Severe severe Verified 11/21/24 13:46 throat itching nickel Allergy Unknown Verified 03/07/24 13:12 Review of Systems Review of Systems: Yes all other systems are reviewed and are negative [facility] Past Medical History Medical History (Updated 11/22/24 @ 00:00 by Renato Aleman) Recurrent incisional hernia Ventral hernia PONV (postoperative nausea and vomiting) COVID-19 vaccine series completed Arthritis Hypothyroid Diabetes History of COVID-19 Recurrent hernia High cholesterol Diabetic acidosis, type II Surgical History (Updated 03/18/24 @ 12:38 by Maria De Jesus Burgos RN) History of bunionectomy of both great toes H/O colonoscopy Hx of lumbar discectomy Hx of umbilical hernia repair (09/27/22) Social History Social History Household Members: Family Housing: House Are you a primary administrator health care facility to a significant other at home: Yes (sister) Do you presently have visiting nurse or other home services: No Alcohol intake: never Patient Tobacco Use Status: Never used Tobacco Tobacco use type: Cigarette Smoked in Last 30 Days: No Use of substances other than those prescribed or required for medical reasons: No Advance Directives: Yes Advance Directives on File: Yes Advance Directives Date on File: 09/29/22 service: No Physical Exam ED Vital Signs: Vital Signs - 24 hr 11/21/24 13:43 11/21/24 18:00 11/21/24 18:47 Temperature 97.6 F 97.6 F 97.6 F Pulse Rate 88 89 89 Respiratory Rate 16 16 16 Blood Pressure 130/76 132/77 132/77 Pulse Oximetry 98 96 96 Oxygen Delivery Method Room Air Room Air Room Air BMI result Body Mass Index 35.0 Const Other: The patient is awake, alert, pleasant, cooperative. She does not appear ill or in distress. HENMT Other: Face is symmetrical, mucous membranes moist. Eyes General: appearance normal, both eyes and all related structures EOM: EOMs intact bilaterally Neck Neck: Yes normal visual inspection and Yes full ROM Resp Effort & Inspection: normal respiratory effort Auscultation: clear to auscultation bilaterally Cardio Rate: regular rate Rhythm: regular rhythm Heart sounds: S1 normal heart sound present and S2 normal heart sound present GI Other: The abdomen is soft and nontender Back/Spine/Pelvis Other: The patient has paraspinous tenderness bilaterally, more in the right. No definite midline tenderness. No real CVA percussion tenderness. Skin Other: Skin is dry and unremarkable Neuro Other: The patient is awake and alert with a normal mental status. Cranial nerves are grossly intact. She moves all extremities normally and appropriately. Extrem Other: No peripheral edema. No calf swelling or tenderness. Course Course Course Narrative: RmE: 59-year-old female with history of diabetes and chronic kidney disease stage 3 presents to ED for bilateral flank pain without any trauma. Patient denies any pain going down the legs, chest pain, shortness of breath, or pleurisy. Patient states her urine is slightly darker than usual. Labs urine ordered Medical Decision Making Medical Decision Making MDM Narrative: The patient is a 59-year-old woman who comes for evaluation of bilateral lower back pain, worse on the right. She says this has been bothering her for several weeks to months but it has been worse over the last week. She says she also recently obtained some old records from her previous PCP. Her previous PCP retired and she has a new appointment next week with a new PCP. According to the records she saw from her old PCP there were references to chronic kidney disease. She has been unaware of any kidney issues. I think she came to the emergency room today primarily because of concern about pain in the region of her flanks and this question of whether she has a kidney problems. She does not have any urinary symptoms. She has had no injury recently. Her low back pains are worse with movements. No fever, sweats, chills. My overall impression is that she has muscular low back pain and concern about her kidney function. I do not think she has acutely ill or sick otherwise. The patient has no findings on exam to suggest pyelonephritis. Her urinalysis is not likely consistent with a UTI. Her renal function is not markedly poor. Her creatinine is 0.89. Her BUN is 16. Her creatinine clearance is 61. Her GFR is greater than 60. A lumbar spine x-ray is unremarkable. The patient will be advised to use acetaminophen as needed for pain. She will be prescribed cyclobenzaprine that she may use at night. She has an appointment next week with a new PCP. She should keep this appointment. Lab Data 11/21/24 14:27 11/21/24 14:27 Labs: Lab Results 11/21/24 Range/Units 14:27 WBC 8.6 (4.8-10.8) X10*3/uL RBC 4.52 (4.20-5.50) X10*6/uL Hgb 13.7 (12.0-16.0) g/dl Hct 40.3 (37.0-47.0) % MCV 89.2 (80.0-98.0) fL MCH 30.3 (27.0-33.0) pg MCHC 34.0 (31.0-35.0) g/dl RDW 12.7 (11.0-16.0) % Plt Count 295 (160-400) X10*3/uL MPV 10.5 (9.4-12.3) fL Immature Gran % (Auto) 0.5 H (0.0-0.4) % Neut % (Auto) 49.1 (45-73) % Lymph % (Auto) 42.4 H (20-40) % [place] % (Auto) 5.7 (2-11) % Eos % (Auto) 1.6 (0-4) % Baso % (Auto) 0.7 (0-2) % Lymph # (Auto) 3.7 (1.2-4.9) X10*3/uL [place] # (Auto) 0.5 (0.1-1.2) X10*3/uL Eos # (Auto) 0.1 (0.0-0.4) X10*3/uL Baso # (Auto) 0.1 (0.0-0.2) X10*3/uL Abs Immat Gran (auto) 0.04 H (0.00-0.03) X10*3/uL Absolute Neuts (auto) 4.2 (2.0-8.3) x10*3/uL Absolute Nucleated RBC 0.000 (0.0-0.012) X10*3/uL Nucleated RBC % (auto) 0.0 (0.0-0.2) /100WBC Sodium 137 (135-145) mmol/L Potassium 4.1 (3.3-5.1) mmol/L Chloride 104 (96-108) mmol/L Carbon Dioxide 27 (22-29) mmol/L Anion Gap 10 L (12-20) BUN 16 (9-16) mg/dL Creatinine 0.89 (0.5-1.4) mg/dL Estim Creat Clear Calc 61.6 Estimated GFR > 60 Random Glucose 187 H (60-115) mg/dL Calcium 9.7 (8.4-10.2) mg/dL Total Bilirubin 0.5 (0.0-1.0) mg/dL AST 34 H (5-31) U/L ALT 34 H (0-31) U/L Alkaline Phosphatase 84 (39-117) U/L Total Protein 7.6 (6.5-8.0) g/dL Albumin 3.9 (3.5-5.0) g/dL Urine Color Yellow Urine Appearance Clear Urine pH 6.0 (5.0-9.0) Ur Specific [place] 1.015 (1.005-1.025) Urine Protein Negative (Neg-Trace) mg/dL Urine Glucose (UA) Negative (Negative) mg/dL Urine Ketones Negative (Negative) mg/dL Urine Blood Negative (Negative) Urine Nitrite Negative (Negative) Ur Leukocyte Esterase Trace H (Negative) Urine RBC 0-2 (0-2) /HPF Urine WBC 0-5 (0-5) /HPF Ur Squamous Epith Cells 0-2 (0-2) /HPF Urine Bacteria None Seen (None Seen) Hyaline Casts 0-2 (0-2) /LPF Discharge Plan Discharge Clinical Impression: Back pain Patient Disposition: Home, Self-Care Additional Instructions: I think the pain you were having in your back is most likely a muscular pain. I think it is unlikely it is related to your kidneys. Your kidney function seems reasonably good today. Please continue your regular medications. You may use acetaminophen as needed for pain. I have also sent a prescription for a muscle relaxant called cyclobenzaprine. I would use this primarily at night if you need it. Do not drive on this medication because it can make you drowsy. Keep your appointment with your new primary care doctor next week. Return to the emergency room if significantly worse. Prescriptions: New cyclobenzaprine 10 mg tablet 10 mg PO TID PRN (Reason: muscle spasm) Qty: 14 0RF acetaminophen 500 mg capsule 1,000 mg PO Q8H PRN (Reason: fever or pain) Qty: 14 0RF No Action docusate sodium 100 mg capsule 100 mg PO BID Qty: 60 0RF levothyroxine [Synthroid] 75 mcg tablet 1 tab PO DAILY insulin glargine [Basaglar KwikPen U-100 Insulin] 100 unit/mL (3 mL) insulin pen 30 unit subcut QAM oxycodone-acetaminophen [Percocet] 5-325 mg tablet 1 tab PO Q4-6H PRN (Reason: pain) Qty: 30 0RF Rx Instructions: Partial Fill upon patient request. ibuprofen 600 mg tablet 600 mg PO Q6H PRN (Reason: pain) Qty: 30 0RF insulin aspart U-100 [Novolog FlexPen U-100 Insulin] 100 unit/mL (3 mL) Insulin Pen 1 sliding scale dose SUBCUT USEASDIRECTD Trulicity 1.5 mg/0.5 mL pen injector 1.5 mg subcut QWEEK Patient Comments: Patient takes every Monday Referrals: Irene Choudhary MD [Primary Care Provider] - (back) Interventions: ED Discharge Assessment Last Done: 11/21/24 18:47 Discharge Date/Time: 11/21/24 18:48 Print Language: Amharic
[2024-11-21 14:33] LABS: MANUAL DIFF FLAG NO
[2024-11-21 14:34] LABS: Basophils Absolute Auto 0.1 X10*3/uL (0.0-0.2); Basophils Percent Auto 0.7 % (0-2); Eosinophils Absolute Auto 0.1 X10*3/uL (0.0-0.4); Eosinophils Percent Auto 1.6 % (0-4); Hematocrit 40.3 % (37.0-47.0); Hemoglobin 13.7 g/dl (12.0-16.0); Imm Gran Abs Auto 0.04 X10*3/uL (0.00-0.03); Imm Gran Pct Auto 0.5 % (0.0-0.4); Lymphocytes Absolute Auto 3.7 X10*3/uL (1.2-4.9); Lymphocytes Percent Auto 42.4 % (20-40); Mean Corpuscular Hemoglobin 30.3 pg (27.0-33.0); Mean Corpuscular Volume 89.2 fL (80.0-98.0); Mean Platelet Volume 10.5 fL (9.4-12.3); Monocytes Absolute Auto 0.5 X10*3/uL (0.1-1.2); Monocytes Percent Auto 5.7 % (2-11); Neutrophils Absolute Auto 4.2 x10*3/uL (2.0-8.3); Neutrophils Percent Auto 49.1 % (45-73); Platelet Count 295 X10*3/uL (160-400); Red Blood Count 4.52 X10*6/uL (4.20-5.50); Red Cell Distribution Width 12.7 % (11.0-16.0); White Blood Count 8.6 X10*3/uL (4.8-10.8)
[2024-11-21 14:37] LABS: Appearance Urine Clear; Color Urine Yellow; Glucose Urine UA Negative (Negative); Leukocyte Esterase Urine Trace (Negative); Nitrite Urine Negative (Negative); Specific Gravity - Urine 1.015 (1.005-1.025); UMIC TRIGGER UACC YES; Urine Blood Negative (Negative); Urine Ketones Negative (Negative); Urine Protein Negative (Neg-Trace)
[2024-11-21 14:41] LABS: Bacteria Urine None Seen (None Seen); Hyaline Casts Urine 0-2 /LPF (0-2); RBC Urine 0-2 /HPF (0-2); Squamous Epithelial Cell Urine 0-2 /HPF (0-2); WBC Urine 0-5 /HPF (0-5)
[2024-11-21 14:48] LABS: Alanine Aminotransferase 34 U/L (0-31); Albumin Level 3.9 g/dL (3.5-5.0); Alkaline Phosphatase 84 U/L (39-117); Anion Gap 10 (12-20); Aspartate Amino Transferase 34 U/L (5-31); Bilirubin Total 0.5 mg/dL (0.0-1.0); Blood Urea Nitrogen 16 mg/dL (9-16); Calcium 9.7 mg/dL (8.4-10.2); Carbon Dioxide 27 mmol/L (22-29); Chloride 104 mmol/L (96-108); Creatinine Clr Calc Pharmacy 61.6; Estimated Glomerular Filt Rate > 60; Glucose Random 187 mg/dL (60-115); Potassium 4.1 mmol/L (3.3-5.1); Sodium 137 mmol/L (135-145); Total Protein 7.6 g/dL (6.5-8.0)
[2024-11-21 18:00] VITALS: BP 132/77; PULSE 89; RESP 16; TEMP 36.4; O2SAT 96
[2024-11-21 18:47] VITALS: BP 132/77; PULSE 89; RESP 16; TEMP 36.4; O2SAT 96
== END 2024-11-21 18:48 | disposition home or self-care (01) ==
LOC: HO.ED 18:43
PROVIDERS: Physician Assistant; Emergency Provider Emergency Medicine; PCP Internal Medicine
DX: M54.50 Low back pain, unspecified (principal); E11.9 Type 2 diabetes mellitus without complications; Z79.4 Long term (current) use of insulin; Z79.899 Other long term (current) drug therapy
CPT/HCPCS: 36415; 72100; 80053; 81001; 85025; 99283; 99284

== ENCOUNTER → 2024-11-21 17:38 | Outpatient (BNV) | payer OTHER, SELFPAY | PROVIDERS: Emergency Provider Emergency Medicine; PCP Internal Medicine; Visit Provider Specialist | DX: M54.50 Low back pain, unspecified (principal) | CPT/HCPCS: 72100 ==

== ENCOUNTER 2024-11-26 15:04 | Outpatient (AMB) | payer OTHER, SELFPAY ==
--- NOTE | 2024-11-26 15:04 | A.OFFPC_ITS ---
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: No Accompanied by: Self / Same As Patient Allergies shellfish derived Allergy (Severe, Verified 11/26/24 15:05) severe throat itching nickel Allergy (Verified 11/26/24 15:05) Unknown Tobacco use date assessed: 11/26/24 Dental Screening Dental Screen Date: 11/26/24 Did you have a dental visit in the last 12 months?: Yes Did you have a dental problem in the last 6 months where you did not have access to dental care?: No Was dental information given to patient?: Patient has dentist HPI HPI Comments History of Present Illness Details History of Present Illness The patient is a 59-year-old female presenting with concerns regarding her diabetes management and kidney disease evaluation. Her reported blood sugar control is poor, marked by a 243 mg/dL reading this morning. She adheres to an insulin regimen, using Lantus 30 units and sliding scale Lispro due to prior restrictions on NovoLog by her insurance. Concerns for her A1c remain as updates are required to determine present control levels, considering a history of high glucose levels. The patient discovered she was regarded as having stage 3 chronic kidney disease, though recent measures suggest her GFR has improved. Complications of her diabetes include diabetic neuropathy, which presented with pronounced sensations in her feet. This condition has since resolved. She is a lso receiving treatment for diabetic macular edema, receiving injections in the left eye and awaiting follow-up with her retinal specialist. Chronic back pain related to degenerative disc disease persists, recorded as mid-back pain with bilateral side involvement. Past therapy options like Flexeril produced side effects, and attempts using lidocaine patches were unsuccessful in providing relief. Due to prior insurance coverage issues, she has not pursued physical therapy recently but plans to do so. Additionally, she has a significant umbilical hernia that has undergone multiple repairs, with considerations for surgery contingent on improved A1c values. Finally, memory concerns, notably in recall and word retrieval, have emerged, though there is no immediate familial precedent for Alzheimer?s or dementia. Evaluation and potential hormone therapy are planned related to these cognitive issues. Review of Systems - Endocrine: Reports poorly controlled b lood sugar levels, taking insulin (Lantus and Lispro), wishes to resume NovoLog. - Renal: Reports past documentation of s tage 3 chronic kidney disease, GFR currently above 60; denies current renal issues. - Neurologic: Reports resolved neuropath y in feet, memory issues with forgetfulness and word retrieval difficulties. - Ophthalmologic: Reports macular edema in the left eye, undergoing injections, awaiting further evaluation. - Musculoskeletal: Reports chronic back pain associated with degenerative disc disease, bilateral side involvement. - Gastrointestinal: Reports umbilical he rnia; denied current intervention due to elevated A1c previously inhibiting surgery considerations. Vital Signs - Blood Pressure: 128/68 mmHg Health Maintenance - Discussed colonoscopy scheduling. - Evaluated current A1c status for manag ement of diabetes. - Continued dietary education for diabet es management. - Planned kidney function monitoring con sidering diabetes impact. Physical Exam Constitutional: Awake and alert, no apparent distress Heart: RRR, S1S2, no murmurs, no edema Lungs: CTA bilaterally, no wheezing Extremities: No calf tenderness Skin: Warm and dry Neuro: Alert and oriented x 3, but patient reports memory concerns, such as forgetting words and tasks, which will be followed up in a month. Assessment and Plan Patient was informed and verbally consented to the use of an ambient scribe for clinic note documentation during this visit. 1. Type 2 Diabetes Mellitus With Hypergl ycemia I plan to review the A1c graft and adjust insulin from Lispro to NovoLog upon verification, as better control is anticipated. Parallel assessments to change Trulicity dosage will occur once A1c results are verified to sustain effective reduction in cravings and glucose levels. Continue lantus. Therapies to be a djusted pending A1c results. Diabetic diet and exercise encouraged 2. Stage 3 Chronic Kidney Disease Continued renal function evaluation will ensure stabilization, and proper diabetic management will reduce CKD exacerbation risks. 3. Diabetic polyneuropathy Blood glucose stabilization is necessary to mitigate reemergent neuropathic issues potentially impacting extremities further. 4. Diabetic Macular Edema Ongoing injected pharmacotherapy for macular edema sustains current improvements, with scheduled eye doctor visits addressed for assessment adjustments. 5. Degenerative Disc Disease Back pain management approaches include Robaxin, complemented with structured physical therapy and domestic heat/ice application strategies.Continue tylenol and ibuprofen 6. Umbilical Hernia Achieving adequate diabetes benchmarks remains pivotal for intervening surgically. The patient is encouraged towards consistent disease management through glycemic control to leverage surgical interventions. 7. Memory Loss I opted for analyzing memory concerns if driven by menopausal changes, leading to follow-up plans for broader cognitive energy inclusive of hormonal evaluations for clarity in upcoming months. Will check estrogen, progesterone, tsh, and vitamin levels Discussion Notes During today's visit, we discussed the patient's issues concerning type 2 diabetes, chronic kidney disease, neuropathy, macular edema, degenerative disc disease, umbilical hernia, and memory troubles. I underlined the importance of managing her diabetes better with the potential switch back to NovoLog, increasing Trulicity if needed, and maintaining dietary control. For her CKD, focusing on stable kidney functioning through good diabetic management was discussed. Neuropathy symptoms have resolved but were reviewed with considerations for ongoing glucose control to prevent reoccurrence. 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 We addressed degenerative disc pain considerations, establishing transition from Flexeril to Robaxin along with physical therapy resumption. Her hernia remained on surveillance given prior surgical action requires normalized A1c values. Lastly, memory evaluation and potential menopausal impacts will be reviewed thoroughly in future visits. I explained all risks and benefits of treatment plans and encouraged rescheduled follow-ups for her diabetes progress and overall cognitive health monitoring. Patient Instructions - Check blood sugar levels regularly and report any significant changes. - Follow dietary plans for diabetes senia jennifer. - Use Robaxin as directed if experiencin g back pain; discontinue Flexeril. - Keep appointments with your eye specia list as directed for macular edema. - Return for blood pressure checks if yo u experience persistent changes. - Continue regular home exercises, apply ing heat/ice as needed for back pain relief. - Refrain from eating excessive sugar an d maintain a balanced diet. - Follow through with your colonoscopy a ppointment and schedule as discussed. - Report [facility] Medical History (Updated 11/26/24 @ 15:41 by BRISA Mccarthy) Recurrent incisional hernia Ventral hernia PONV (postoperative nausea and vomiting) COVID-19 vaccine series completed Arthritis Hypothyroid Diabetes History of COVID-19 Recurrent hernia High cholesterol Diabetic acidosis, type II Surgical History (Updated 11/26/24 @ 15:31 by BRISA Mccarthy) History of bunionectomy of both great toes H/O colonoscopy Hx of lumbar discectomy Hx of umbilical hernia repair (09/27/22) Family History (Updated 11/26/24 @ 15:17 by DARWIN Lainez) Mother Breast cancer Glioblastoma multiforme of brain Diabetes Father Diabetes Heart disease Social History Household Members: Family Housing: House Are you a primary grounds caretaker to a significant other at home: Yes (sister) Do you presently have visiting nurse or other home services: No Alcohol intake: never Patient Tobacco Use Status: Never used Tobacco Tobacco use type: Cigarette Advance Directives Date on File: 09/29/22 service: No Current occupational status: disabled Cognitive needs: No Hearing needs: No Vision needs: Yes (Rx glasses) Questionnaire PHQ-9 Over the last 2 weeks, how often have you been bothered by any of the following problems? 1. Little interest or pleasure in doing things: not at all 2. Feeling down, depressed, or hopeless: not at all 3. Trouble falling or staying asleep, or sleeping too much: not at all 4. Feeling tired or having little energy: not at all 5. Poor appetite or overeating: not at all 6. Feeling bad about yourself - or that you are a failure or have let yourself or your family down: not at all 7. Trouble concentrating on things, such as reading the newspaper or watching television: not at all 8. Moving or speaking so slowly that other people could have noticed. Or the opposite - being so fidgety or restless that you have been moving around a lot more than usual: not at all 9. Thoughts that you would be better off or of hurting yourself in some way: not at all Total score: 0 Source: Developed by Drs. Santy Acosta, Elodia Arriola, Clyde Jean and colleagues, with an educational john from [employer] Thrive Questionnaire Date Thrive assessed: 11/26/24 I am a: Patient What is your living situation today?: I have a steady place to live Within the past 12 months, did the food you bought not last and you didn't have the money to get more?: Never true Within the past 12 months, did you worry whether your food would run out before you got money to buy more?: Never true Do you have trouble paying for medicines?: No Do you have trouble getting transportation to medical appointments?: No Do you have trouble paying your heating and electricity bill?: No Do you have trouble taking care of your child, family member or friend?: No Do you have trouble with day-to-day activities such as bathing, preparing meals, shopping, managing finances, etc.?: No Are you currently unemployed and looking for a job?: No Are you interested in more education?: No Please select the resources that you would like help with: None THRIVE Score: 0 AUDIT C Alcohol Use Questionnaire (AUDIT-C) 1. How often do you have a drink containing alcohol?: Never Total Score: 0 GABY-7 AMB Questionnaire GABY-7 Date GABY - 7 assessed: 11/26/24 Feeling nervous, anxious, or on edge: 0 = Not at all Not being able to stop or control worryin = Not at all Worrying too much about different things: 0 = Not at all Trouble relaxin = Not at all Being so restless that it is hard to sit still: 0 = Not at all Becoming easily annoyed or irritable: 0 = Not at all Feeling afraid as if something awful might happen: 0 = Not at all Total GABY-7 score (0-4 normal; 5-9 mild; 10-14 moderate; 15-21 severe): 0 Source: Developed by Drs. Santy Acosta, Elodia Arriola, Clyde Jean and colleagues, with an educational john from [employer] Physical exam (Primary Care) Vital Signs: Last Vital Signs Temp 97.7 F 11/26/24 15:08 Pulse 91 11/26/24 15:08 Resp 16 11/26/24 15:08 BP 128/68 11/26/24 15:08 Pulse Ox 97 11/26/24 15:08 Oxygen Delivery Method Room Air 11/26/24 15:08 BMI result Body Mass Index 34.5 Tobacco/Smoking Status: Tobacco use Status Tobacco use date assessed 11/26/24 11/26/24 15:08 Patient Tobacco Use Status Never used Tobacco 11/26/24 15:04 Tobacco use type Cigarette 11/26/24 15:04 PHQ-9: PHQ-9 Score PHQ-9: Total score 0 11/26/24 15:22 Thrive Assessment: Date of Thrive Assessment Date Thrive assessed 11/26/24 11/26/24 15:08 Coding Level of Care Code New Pt Level 4 (89234) Complex EM visit Add On G2211 Diagnoses Type 2 diabetes mellitus E11.9 Hyperlipidemia E78.5 Lumbar degenerative disc disease M51.369 Memory loss R41.3 Assessment & Plan Assessment & Plan (1) Type 2 diabetes mellitus: Code(s): E11.9 - Type 2 diabetes mellitus without complications Category: Medical Plan: Uncontrolled. Hemoglobin A1c ordered. Continue Lantus, NovoLog, Trulicity, doses to be adjusted as appropriate pending results. Continue diabetic diet (2) Hyperlipidemia: Code(s): E78.5 - Hyperlipidemia, unspecified Category: Medical Plan: Lipid panel ordered (3) Lumbar degenerative disc disease: Code(s): M51.369 - Other intervertebral disc degeneration, lumbar region without mention of lumbar back pain or lower extremity pain Category: Medical Plan: Referral placed to physical therapy. Can use Robaxin as needed for muscle spasm. Continue ibuprofen and Tylenol use as well as lidocaine patches and ice and heat (4) Memory loss: Code(s): R41.3 - Other amnesia Category: Medical Plan: Suspect related to menopause. Estrogen and progesterone levels ordered. Will also check TSH and vitamin levels. Follow-up in 1 month for further discussion Plan Follow-up in 1 month. Orders: Orders Lipid Panel Today E11.9 - Type 2 diabetes mellitus without complications, E78.5 - Hyperlipidemia, unspecified PT Evaluation and Treatment Today M51.369 - Other intervertebral disc degeneration, lumbar region without mention of lumbar back pain or lower extremity pain Estrogen Today R41.3 - Other amnesia Progesterone Today R41.3 - Other amnesia Hemoglobin A1c Today E11.9 - Type 2 diabetes mellitus without complications, E78.5 - Hyperlipidemia, unspecified TSH reflex Free T4 Today E11.9 - Type 2 diabetes mellitus without complications, E78.5 - Hyperlipidemia, unspecified Microalbumin, Random (w Creat) Today E11.9 - Type 2 diabetes mellitus without complications Vitamin B12 Today R41.3 - Other amnesia Vitamin D 25-OH Total Today R41.3 - Other amnesia Referrals Gastroenterology Referral Z12.11 - Encounter for screening for malignant neoplasm of colon Medications: New methocarbamol 750 mg PO TID PRN 90 tabs 0RF muscle pain
[2024-11-26 15:08] VITALS: BP 128/68; PULSE 91; RESP 16; TEMP 36.5; O2SAT 97; BMI 34.5
== END 2024-11-26 15:44 | disposition home or self-care (01) ==
LOC: HO.HMCHD 15:04
PROVIDERS: PCP Internal Medicine; Visit Provider Physician Assistant
DX: E11.9 Type 2 diabetes mellitus without complications (principal); E78.5 Hyperlipidemia, unspecified; M51.369 Other intervertebral disc degeneration, lumbar region without mention of lumbar back pain or lower extremity pain; R41.3 Other amnesia

== ENCOUNTER → 2024-11-26 15:04 | Outpatient (BNVA) | payer OTHER, SELFPAY | PROVIDERS: PCP Internal Medicine; Visit Provider Physician Assistant | DX: E11.9 Type 2 diabetes mellitus without complications (principal); E78.5 Hyperlipidemia, unspecified; M51.369 Other intervertebral disc degeneration, lumbar region without mention of lumbar back pain or lower extremity pain; R41.3 Other amnesia; Z79.4 Long term (current) use of insulin; Z79.85 Long-term (current) use of injectable non-insulin antidiabetic drugs | CPT/HCPCS: 99202 ==

== ENCOUNTER 2024-11-27 07:43 | Outpatient (REF) | payer OTHER, SELFPAY ==
[2024-11-27 08:07] LABS: Estimated Average Glucose 235 mg/dL; Hemoglobin A1c % 9.8 % (<6.0); Total Hemoglobin (HGBA1C) 3459.0252 umol/L
[2024-11-27 08:27] LABS: Cholesterol 229 mg/dL (<200); HDL Cholesterol 29 mg/dL (>40); LDL Cholesterol Calculated 135 mg/dL (<100); Triglycerides 325 mg/dL (<150)
[2024-11-27 08:42] LABS: TSH reflex Free T4 2.49 uIU/mL (0.32-4.0); Vitamin D 25-OH Total 21.8 ng/mL (>30)
[2024-11-27 08:48] LABS: Vitamin B12 404 pg/mL (200-900)
[2024-11-27 09:06] LABS: Creatinine Urine 148.79 mg/dL; Microalbum/Creatinine Ratio Ur 3.3 ug/mg cr (<30)
[2024-12-03 13:43] LABS: Estrogen 129 pg/mL
[2024-12-12 04:34] LABS: Progesterone <0.1 ng/mL
== END 2024-11-27 07:44 | disposition home or self-care (01) ==
LOC: HO.LAB 07:43
PROVIDERS: PCP Internal Medicine; Visit Provider Physician Assistant
DX: E11.9 Type 2 diabetes mellitus without complications (principal); R41.3 Other amnesia; E78.5 Hyperlipidemia, unspecified
CPT/HCPCS: 36415; 80061; 82043; 82306; 82570; 82607; 82672; 83036; 84144; 84443

== ENCOUNTER 2024-12-24 14:25 | Outpatient (AMB) | payer OTHER, SELFPAY ==
--- NOTE | 2024-12-24 14:32 | A.OFFPC_ITS ---
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 Type 2 diabetes-remains uncontrolled with hemoglobin A1c 9.8%. She does note improvement in glucose levels since the increase in Trulicity dosing. She reports glucose levels are typically ranging 186-201 whereas before they were 300-400. She also continues on 35 units Lantus but reports she has been without her NovoLog due to insurance reasons. She has used lispro in the past but does not feel this is as effective. Memory loss-TSH, vitamin levels unremarkable. Hormone levels appropriate. Symptoms persist. She reports significant difficulty with word finding as well as finding objects. Hyperlipidemia-discontinued atorvastatin 40 mg daily as is previously caused adverse effects. LDL 135. ROS: General: No fevers, malaise, unintentional weight loss HEENT: No blurred vision, diplopia. No sore throat, nasal congestion, rhinorrhea, sinus pain, ear pain Cardiovascular: No chest pain, palpitations, or leg edema Respiratory: No shortness of breath, wheezing, cough GI: No abdominal pain, nausea, vomiting, diarrhea, constipation, melena, hematochezia : No dysuria, hematuria, increased urinary frequency, decreased urinary output MSK: No myalgia, back pain Neuro: No headaches, weakness, paresthesias. see hpi Skin: No rashes or lesions EXAM: Constitutional - Awake and Alert, No apparent distress Eyes - PERRLA, EOMI Cardiovascular - S1S2, RRR, No edema Respiratory - Normal lung expansion, Normal respiratory effort, No respiratory distress, CTA bilaterally Extremities - no calf tenderness bilaterally, no swelling Skin - Warm/Dry Neurological - Alert & oriented x3, CN II-XII in tact. MOCA 23 Psychological - Appropriate affect [facility] Medical History (Updated 11/26/24 @ 15:41 by BRISA Mccarthy) Recurrent incisional hernia Ventral hernia PONV (postoperative nausea and vomiting) COVID-19 vaccine series completed Arthritis Hypothyroid Diabetes History of COVID-19 Recurrent hernia High cholesterol Diabetic acidosis, type II Surgical History (Updated 11/26/24 @ 15:31 by BRISA Mccarthy) History of bunionectomy of both great toes H/O colonoscopy Hx of lumbar discectomy Hx of umbilical hernia repair (09/27/22) Family History (Updated 11/26/24 @ 15:17 by DARWIN Lainez) Mother Breast cancer Glioblastoma multiforme of brain Diabetes Father Diabetes Heart disease Social History Household Members: Family Housing: House Are you a primary care asst to a significant other at home: Yes (sister) Do you presently have visiting nurse or other home services: No Alcohol intake: never Patient Tobacco Use Status: Never used Tobacco Tobacco use type: Cigarette Advance Directives Date on File: 09/29/22 service: No Current occupational status: disabled Cognitive needs: No Hearing needs: No Vision needs: Yes (Rx glasses) Questionnaire Thrive Questionnaire Date Thrive assessed: 11/26/24 GABY-7 AMB Questionnaire GABY-7 Date GABY - 7 assessed: 11/26/24 Source: Developed by Drs. Santy Acosta, Elodia Arriola, Clyde Jean and colleagues, with an educational john from [employer]. Physical exam (Primary Care) Vital Signs: Last Vital Signs Temp 98.3 F 12/24/24 14:34 Pulse 90 12/24/24 14:34 Resp 16 12/24/24 14:34 BP 114/80 12/24/24 14:34 Pulse Ox 98 12/24/24 14:34 Oxygen Delivery Method Room Air 12/24/24 14:34 BMI result Body Mass Index 34.5 Tobacco/Smoking Status: Tobacco use Status Tobacco use date assessed 11/26/24 12/24/24 14:37 Patient Tobacco Use Status Never used Tobacco 12/24/24 14:37 Tobacco use type Cigarette 12/24/24 14:37 Thrive Assessment: Date of Thrive Assessment Date Thrive assessed 11/26/24 12/24/24 14:37 Coding Level of Care Code Est Pt Level 4 (08000) Complex EM visit Add On G2211 Diagnoses Memory loss R41.3 Type 2 diabetes mellitus E11.9 Hyperlipidemia E78.5 Assessment & Plan Assessment & Plan (1) Memory loss: Code(s): R41.3 - Other amnesia Category: Medical Plan: Persistent. Reviewed most recent lab results including hormone testing, vitamin levels, TSH which were all appropriate. MOCA performed with patient. , possible cognitive impairment. Will check MRI brain for further evaluation. Referred to memory clinic (2) Type 2 diabetes mellitus: Code(s): E11.9 - Type 2 diabetes mellitus without complications Category: Medical Plan: Uncontrolled blood glucose control is improving. She will continue with increased dose of Trulicity 3 mg weekly as well as 35 units of Lantus. We will a 10th prior authorization for NovoLog on sliding scale. Continue with diabetic diet. Annual eye exams and foot exams recommended (3) Hyperlipidemia: Code(s): E78.5 - Hyperlipidemia, unspecified Category: Medical Plan: Uncontrolled. Discussed that given her history of diabetes, she is at increased risk of cardiovascular event given her cholesterol levels as well. Will trial pravastatin 40 mg nightly. Recommend diet lower in saturated fat and highly processed foods. Plan Follow-up in the office in 3 months Orders: Orders Lipid Panel 3 Months E11.9 - Type 2 diabetes mellitus without complications, E78.5 - Hyperlipidemia, unspecified Hemoglobin A1c 3 Months E11.9 - Type 2 diabetes mellitus without complications, E78.5 - Hyperlipidemia, unspecified Referrals Neurology Referral R41.3 - Other amnesia Medications: New pravastatin 40 mg PO BEDTIME 90 tabs 1RF Discontinued atorvastatin Discontinued Reason: Doctor's Order 40 mg PO BEDTIME 90 tabs 1RF
[2024-12-24 14:34] VITALS: BP 114/80; PULSE 90; RESP 16; TEMP 36.8; O2SAT 98; BMI 34.5
--- OUTSIDE RECORDS SUMMARY | 2024-12-24 16:17 | XMS_ITS | Patient Health Record ---
Author Organization [facility] Address [address] [place] [address] Care Team Providers Care Stock Order Lister Name Role Phone Irene Choudhary M.D. Primary Care Provider Unavail able Santy Estevez Unavailable [phone] Reason For Referral No Information Medications Medication SIG (Take, Route, Fr equency, Duration) Notes Start Date End Date Status Synthroid 75 MCG 1 tablet Orally Once a day Active Dulcolax 5 MG as directed Orally a s directed for 1 days 04/07/2016 Active MiraLax 1 as directed Orally a s directed for 1 days 04/07/2016 Active Problems Problem Type SNOMED Code ICD Code Onset Dates Problem Status W/U Status Risk Notes Problem [id number] Colon cancer screening (Z12.11) Active confirmed Problem [id number] Preprocedural examination (Z01.818) Active confirmed Plan Of Treatment Future Test Test Name Order Date COLONOSCOPY 12/29/2015 Insurance Providers Payer Name Payer Address Payer Phone Subscriber Number Group Number Insured Name Patient Relationship to Insured Coverage Start Date Coverage End Date [employer] Plan [address] [address] [place], [place] [id number] Self - patient is the insured Medical (General) History Medical History History ICD Code Diet-controlled DM Denies [place],CVA,Lung disease,renal disease Hypothyroidism Surgical History Surgery Date(Month/Year) Back surgery--lower back Abdominal wall hernia repair
== END 2024-12-24 15:07 | disposition home or self-care (01) ==
LOC: HO.HMCHD 14:27
PROVIDERS: PCP Internal Medicine; Visit Provider Physician Assistant
DX: R41.3 Other amnesia (principal); E11.9 Type 2 diabetes mellitus without complications; E78.5 Hyperlipidemia, unspecified

== ENCOUNTER → 2024-12-24 14:25 | Outpatient (BNVA) | payer OTHER, SELFPAY | PROVIDERS: PCP Internal Medicine; Visit Provider Physician Assistant | DX: E11.9 Type 2 diabetes mellitus without complications (principal); R41.3 Other amnesia; E78.5 Hyperlipidemia, unspecified; Z79.4 Long term (current) use of insulin | CPT/HCPCS: 99212 ==

== ENCOUNTER 2025-02-10 15:31 | Outpatient (REF) | payer OTHER, SELFPAY ==
--- NOTE | ~2025-02-10 | MM_ITS ---
EXAMINATION: MM SCREENING DIGITAL BREAST TOMOSYNTHESIS, BILATERAL CLINICAL INFORMATION: Screening. Asymptomatic. COMPARISON: Mammography: Comparison is made with available priors TECHNIQUE: Digital breast mammography with tomosynthesis is performed in both the craniocaudal and mediolateral oblique views along with computer-aided detection (CAD). FINDINGS: There are scattered areas of fibroglandular density (ACR BI-RADS breast composition Category b). There are no significant masses, abnormal calcifications, or other abnormalities. MM/MM tomosynthesis screening BI IMPRESSION: No mammographic evidence of malignancy. ASSESSMENT: BI-RADS BI-RADS 1 - Negative RECOMMENDATION: Routine annual mammography screening. 1 year F/U This examination should not preclude the clinical evaluation of a suspicious palpable abnormality. This patient's information was entered into a reminder system with a target due date for their next mammogram. Electronically signed by: Brianna De Dios DO 02/18/2025 11:46 AM EDT
--- OUTSIDE RECORDS SUMMARY | 2025-02-10 16:01 | XMS_ITS | Patient Health Record ---
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 Primary Care Provider Unavail able Santy Estevez Unavailable [phone] Reason For Referral No Information Medications Medication [...] Problem Status W/U Status Risk Notes Problem [id number] Colon cancer screening (Z12.11) Active confirmed Problem [id number] Preprocedural examination (Z01.818) Active confirmed Plan Of Treatment Future Test Test Name Order Date COLONOSCOPY 12/29/2015 Insurance Providers Payer Name Payer Address Payer Phone Subscriber Number Group Number Insured Name Patient Relationship to Insured Coverage Start Date Coverage End Date [employer] Plan [address] [address] [place], [place] [id number] [id number] [id number] Self - patient is the insured Medical (General) History Medical History History ICD Code Diet-controlled DM Denies [place],CVA,Lung disease,renal disease Hypothyroidism Surgical History Surgery Date(Month/Year) Back surgery--lower back Abdominal wall hernia repair
== END 2025-02-10 15:32 | disposition home or self-care (01) ==
LOC: HO.MAMMO 15:31
PROVIDERS: Visit Provider Physician Assistant
DX: Z12.31 Encounter for screening mammogram for malignant neoplasm of breast (principal)
CPT/HCPCS: 77063; 77067

== ENCOUNTER → 2025-02-10 15:45 | Outpatient (BNV) | payer OTHER, SELFPAY | PROVIDERS: Visit Provider Internal Medicine | DX: Z12.31 Encounter for screening mammogram for malignant neoplasm of breast (principal) | CPT/HCPCS: 77063; 77067 ==

== ENCOUNTER 2025-03-03 16:27 | Emergency (ER) | payer OTHER, SELFPAY ==
--- NOTE | ~2025-03-03 | US_ITS ---
CLINICAL HISTORY: RUQ pain US abdomen limited Comparison: CT/CO/SR - CT ABDOMEN PELVIS WITHOUT IV CONTRAST - 02/16/24 11:20 EDT Findings: The visualized pancreas is normal. The aorta and inferior vena cava are normal caliber. The liver is normal in size and echotexture. There is no intrahepatic bile duct dilatation. The common duct is 2 mm in diameter. The gallbladder is normal. There is no sonographic [place] sign. The main portal vein is antegrade. The right kidney is 10.4 cm in length. No ascites. IMPRESSION: 1. Normal limited abdominal ultrasound. This document has been electronically signed by: Mateo Estrada MD on 03/03/2025 19:29:58
[2025-03-03 17:38] VITALS: BP 134/74; PULSE 92; RESP 20; TEMP 36.4; O2SAT 99; BMI 33.0
--- NOTE | 2025-03-03 17:38 | ED_ITS ---
HPI - General Adult General Chief complaint: Back Pain/Injury Stated complaint: right side pain Time Seen by Provider: 03/03/25 20:49 Source: patient Mode of arrival: ambulatory Limitations: no limitations History of Present Illness ED Provider: HPI narrative: Patient complaining of right flank area pain since earlier today without any injury no urinary symptoms no nausea no vomiting patient does have a chronic back pain in the past Related Data Home Medications ?Medication ?Instructions ?Recorded ?Confirmed levothyroxine 75 mcg tablet 1 tab PO DAILY 12/17/21 (Synthroid) Previous Rx's ?Medication ?Instructions ?Recorded ibuprofen 600 mg tablet 600 mg PO Q6H PRN pain #30 t abs 09/27/22 acetaminophen 500 mg capsule 1,000 mg (2 x 500 mg) PO Q8H PRN 11/21/24 fever or pain #14 caps calcium 500 mg (as 1 tab PO BID #180 tabs 11/27 carbonate)-vitamin D3 10 mcg (400 unit) tablet (Oyster Shell Calcium-Vitamin D3) cholecalciferol (vitamin D3) 50 50 mcg PO DAILY #90 ca ps 11/27/24 mcg (2,000 unit) capsule dulaglutide 3 mg/0.5 mL 3 mg (0.5 mL) subcut QWEEK # 2 mL 11/27/24 subcutaneous pen injector (Trulicity) insulin glargine 100 unit/mL (3 35 unit (0.35 mL) subc ut QAM #15 mL 12/10/24 mL) subcutaneous pen (Lantus Solostar U-100 Insulin) pravastatin 40 mg tablet 40 mg PO BEDTIME #90 tabs docusate sodium 100 mg capsule 100 mg PO BID #60 caps 01/02/25 insulin lispro 100 unit/mL 1 sliding scale dose subcut 01/06/25 subcutaneous pen (Admelog SoloStar USEASDIRECTD #15 mL U-100 Insulin lispro) cyclobenzaprine 10 mg tablet 10 mg PO Q8H #20 tabs 06/17 oxycodone 5 mg tablet 5 mg PO Q6H PRN pain #20 tab s 03/03/25 Allergies Allergy/AdvReac Type Severity Reaction Status Date / Time shellfish derived Allergy Severe severe Verified 03/03/25 17:40 throat itching nickel Allergy Unknown Verified 03/03/25 17:40 Review of Systems 2 Review of Systems: Yes all other systems are reviewed and are negative FORMERLY [facility], [facility] Past Medical History Medical History Recurrent incisional hernia Ventral hernia PONV (postoperative nausea and vomiting) COVID-19 vaccine series completed Arthritis Hypothyroid Diabetes History of COVID-19 Recurrent hernia High cholesterol Diabetic acidosis, type II Surgical History History of bunionectomy of both great toes H/O colonoscopy Hx of lumbar discectomy Hx of umbilical hernia repair (09/27/22) Family History Family History Mother Breast cancer Glioblastoma multiforme of brain Diabetes Father Diabetes Heart disease Social History Social History Household Members: Family Housing: House Are you a primary career services coordinator to a significant other at home: Yes (sister) Do you presently have visiting nurse or other home services: No Alcohol intake: never Patient Tobacco Use Status: Never used Tobacco Tobacco use type: Cigarette Advance Directives: Yes Advance Directives on File: Yes Advance Directives Date on File: 09/29/22 service: No Current occupational status: disabled Cognitive needs: No Hearing needs: No Vision needs: Yes (Rx glasses) Physical Exam ED Vital Signs: Vital Signs - 24 hr 03/03/25 17:38 03/03/25 19:54 03/03/25 22:15 Temperature 97.5 F 96.6 F L 96.6 F L Pulse Rate 92 82 82 Respiratory Rate 20 16 16 Blood Pressure 134/74 123/73 123/73 Pulse Oximetry 99 98 98 Oxygen Delivery Method Room Air Room Air Room Air BMI result Body Mass Index 33.0 Appearance: Alert. Oriented X3. No acute distress. Eyes: PERRLA, No Nystagmus ENT: Pharynx normal. Oral Mucosa moist Neck: Normal inspection. Neck supple. CVS: Normal heart rate and rhythm. Pulses normal. Respiratory: No respiratory distress. Equal air entry bilateral, no wheezing/rales/rhonchi Abdomen: Soft and nontender. No right upper quadrant tenderness Bowel sounds are present, no mass palpable, no CVA tenderness Skin: Skin warm and dry. Normal skin color. Normal skin turgor. Extremities: No lower extremity edema. No calf tenderness back: Diffuse tenderness right flank area in paralumbar area Neuro: Oriented X 3. No motor deficit. No sensory deficit.No cerebellar signs , cranial nerves II-XII intact Course Course Course Narrative: This is a rapid medical exam performed by Carlo Leung NP: Additional HPI, ROS, PE not included below will be deferred to primary provider. Patient is a 59-year-old female with history of multiple ventral hernia repairs presenting to the ED with complaint of RUQ abdominal pain since waking today. Denies nausea or vomiting. Unable to find a comfortable position. Plan: Labs, U/S Medications Administered Discontinued Medications Generic Name Dose Route Start Last Admin Trade Name Freq PRN Reason Stop Dose Admin Cyclobenzaprine HCl 10 mg 03/03/25 21:15 03/03/25 21:24 Cyclobenzaprine Hcl 10 Mg Tablet PO 03/03/25 21:16 Not Given ONCE ONE Oxycodone HCl 10 mg 03/03/25 21:15 03/03/25 21:24 Oxycodone Hcl Immed Release 5 Mg Tablet PO 03/03/25 21:16 10 mg ONCE ONE Administration Medical Decision Making Medical Decision Making [facility] Narrative: Patient nonspecific right flank pain ultrasound was negative for gallstones or kidney stone labs were stable urine negative for UTI will discharge patient home on analgesics and muscle relaxant likely musculoskeletal pain Differential Diagnosis Differential Diagnoses: The differential diagnosis associated with the presentation includes Renal colic/UTI/gallstones/kidney stone Lab Data [facility] Lab Attestation statement: I reviewed the patient's lab results. 03/03/25 18:44 03/03/25 18:44 Labs: Lab Results 03/03/25 Range/Units 18:44 WBC 8.8 (4.8-10.8) X10*3/uL RBC 4.37 (4.20-5.50) X10*6/uL Hgb 13.4 (12.0-16.0) g/dl Hct 38.7 (37.0-47.0) % MCV 88.6 (80.0-98.0) fL MCH 30.7 (27.0-33.0) pg MCHC 34.6 (31.0-35.0) g/dl RDW 12.5 (11.0-16.0) % Plt Count 289 (160-400) X10*3/uL MPV 10.5 (9.4-12.3) fL Immature Gran % (Auto) 0.1 (0.0-0.4) % Neut % (Auto) 48.7 (45-73) % Lymph % (Auto) 44.6 H (20-40) % [place] % (Auto) 4.6 (2-11) % Eos % (Auto) 1.5 (0-4) % Baso % (Auto) 0.5 (0-2) % Lymph # (Auto) 3.9 (1.2-4.9) X10*3/uL [place] # (Auto) 0.4 (0.1-1.2) X10*3/uL Eos # (Auto) 0.1 (0.0-0.4) X10*3/uL Baso # (Auto) 0.0 (0.0-0.2) X10*3/uL Abs Immat Gran (auto) 0.01 (0.00-0.03) X10*3/uL Absolute Neuts (auto) 4.3 (2.0-8.3) x10*3/uL Absolute Nucleated RBC 0.000 (0.0-0.012) X10*3/uL Nucleated RBC % (auto) 0.0 (0.0-0.2) /100WBC Sodium 139 (135-145) mmol/L Potassium 4.4 (3.3-5.1) mmol/L Chloride 103 (96-108) mmol/L Carbon Dioxide 27 (22-29) mmol/L Anion Gap 13 (12-20) BUN 17 H (9-16) mg/dL Creatinine 1.07 (0.5-1.4) mg/dL Estim Creat Clear Calc 51.8 Estimated GFR 52 Random Glucose 310 H (60-115) mg/dL Calcium 9.2 (8.4-10.2) mg/dL Total Bilirubin 0.4 (0.0-1.0) mg/dL AST 29 (5-31) U/L ALT 25 (0-31) U/L Alkaline Phosphatase 81 (39-117) U/L Total Protein 7.8 (6.5-8.0) g/dL Albumin 4.0 (3.5-5.0) g/dL Lipase 24 (8-78) U/L Radiology Impression Discussion of test interpretation with radiology: I have reviewed the radiologist's reading. Discharge Plan Discharge Clinical Impression: Strain of lumbar region Patient Disposition: Home, Self-Care Instructions: Back Pain (ED) Additional Instructions: Your ultrasound is negative for kidney or gallbladder stone Take pain medication muscle relaxant as prescribed Follow with your PCP Prescriptions: New cyclobenzaprine 10 mg tablet 10 mg PO Q8H Qty: 20 0RF oxycodone 5 mg tablet 5 mg PO Q6H PRN (Reason: pain) Qty: 20 0RF Rx Instructions: Partial Fill upon patient request. No Action Trulicity 3 mg/0.5 mL pen injector 3 mg subcut QWEEK Qty: 2 3RF calcium carbonate-vitamin D3 [Oyster Shell Calcium-Vit D3] 500 mg-10 mcg (400 unit) tablet 1 tab PO BID Qty: 180 1RF cholecalciferol (vitamin D3) 50 mcg (2,000 unit) capsule 50 mcg PO DAILY Qty: 90 1RF insulin glargine [Lantus Solostar U-100 Insulin] 100 unit/mL (3 mL) insulin pen 35 unit subcut QAM Qty: 15 1RF Rx Instructions: 35 units correct dose docusate sodium 100 mg capsule 100 mg PO BID Qty: 60 3RF insulin lispro [Admelog SoloStar U-100 Insulin] 100 unit/mL insulin pen 1 sliding scale dose subcut USEASDIRECTD Qty: 15 5RF Rx Instructions: BG <111 0 units, 111-150 - 0 units, 151-200 2 units, 201-250 4 units, 251-300 6 units, 301-350 8 units, >350 10 units levothyroxine [Synthroid] 75 mcg tablet 1 tab PO DAILY ibuprofen 600 mg tablet 600 mg PO Q6H PRN (Reason: pain) Qty: 30 0RF acetaminophen 500 mg capsule 1,000 mg PO Q8H PRN (Reason: fever or pain) Qty: 14 0RF pravastatin 40 mg tablet 40 mg PO BEDTIME Qty: 90 1RF Interventions: ED Discharge Assessment Last Done: 03/03/25 22:15 Discharge Date/Time: 03/03/25 22:15 Print Language: Venezuelan
[2025-03-03 18:48] LABS: MANUAL DIFF FLAG NO
[2025-03-03 18:49] LABS: Hematocrit 38.7 % (37.0-47.0); Hemoglobin 13.4 g/dl (12.0-16.0); Imm Gran Abs Auto 0.01 X10*3/uL (0.00-0.03); Imm Gran Pct Auto 0.1 % (0.0-0.4); Lymphocytes Absolute Auto 3.9 X10*3/uL (1.2-4.9); Mean Corpuscular HGB Conc 34.6 g/dl (31.0-35.0); Mean Corpuscular Hemoglobin 30.7 pg (27.0-33.0); Mean Corpuscular Volume 88.6 fL (80.0-98.0); NRBC Abs Auto 0.000 X10*3/uL (0.0-0.012); NRBC Pct Auto 0.0 /100WBC (0.0-0.2); Platelet Count 289 X10*3/uL (160-400); Red Blood Count 4.37 X10*6/uL (4.20-5.50); White Blood Count 8.8 X10*3/uL (4.8-10.8)
[2025-03-03 19:02] LABS: Alanine Aminotransferase 25 U/L (0-31); Albumin Level 4.0 g/dL (3.5-5.0); Alkaline Phosphatase 81 U/L (39-117); Anion Gap 13 (12-20); Aspartate Amino Transferase 29 U/L (5-31); Blood Urea Nitrogen 17 mg/dL (9-16); Calcium 9.2 mg/dL (8.4-10.2); Carbon Dioxide 27 mmol/L (22-29); Chloride 103 mmol/L (96-108); Creatinine Clr Calc Pharmacy 51.8; Estimated Glomerular Filt Rate 52; Lipase 24 U/L (8-78); Potassium 4.4 mmol/L (3.3-5.1); Sodium 139 mmol/L (135-145); Total Protein 7.8 g/dL (6.5-8.0)
[2025-03-03 19:54] VITALS: BP 123/73; PULSE 82; RESP 16; TEMP 35.9; O2SAT 98
[2025-03-03] MEDS: oxyCODONE HCl Immed Release 5 MG TABLET 10 MG PO (21:24)
[2025-03-03 22:15] VITALS: BP 123/73; PULSE 82; RESP 16; TEMP 35.9; O2SAT 98
== END 2025-03-03 22:15 | disposition home or self-care (01) ==
PROVIDERS: Registered Nurse Emergency; Emergency Provider Internal Medicine; PCP Internal Medicine
DX: S39.012A Strain of muscle, fascia and tendon of lower back, initial encounter (principal); R10.9 Unspecified abdominal pain; X58.XXXA Exposure to other specified factors, initial encounter; Y93.89 Activity, other specified; Y92.89 Other specified places as the place of occurrence of the external cause; Y99.8 Other external cause status
CPT/HCPCS: 36415; 76705; 80053; 83690; 85025; 99284

== ENCOUNTER → 2025-03-03 17:40 | Outpatient (BNV) | payer OTHER, SELFPAY | PROVIDERS: PCP Internal Medicine; Visit Provider Radiology Diagnostic Radiology | DX: R10.11 Right upper quadrant pain (principal) | CPT/HCPCS: 76705 ==

== ENCOUNTER 2025-03-18 09:24 | Outpatient (AMB) | payer OTHER, SELFPAY ==
--- NOTE | 2025-03-18 09:31 | A.OFFVIS_ITS ---
Vital Signs 03/18/25 09:38 Height 5 ft Weight 168 lb BMI 32.8 BP 124/74 Blood Pressure Location Rt brachial Position Sitting Pulse 86 Intake Visit Reasons: ? re-ocurring abdominal hernia Intake Note: Patient scheduled today's visit concerned with recurring hernia. Hx of paraumbilical hernia repair 09-27-2022. Patient c/o: abdomen bloated. Umbilicus popped out. Rubber Ball Finisher Required: No Accompanied by: Self / Same As Patient Allergies shellfish derived Allergy (Severe, Verified 03/18/25 09:35) severe throat itching nickel Allergy (Verified 03/18/25 09:35) Unknown HPI HPI ? re-ocurring abdominal hernia: Details: [age] year female here for a follow up for her recurrent hernia. She has had multiple repairs for an umbilical hernia in the past along with Ventralex mesh. Her last surgery was actually last September, She had noticed some recurrence of the lump again on the area of the umbilicus last year. Her CAT scan showed a fascial defect about 6 cm with small bowel loops She was scheduled for surgery last year but her hemoglobin A1c was elevated so she was not cleared by her primary care physician. She describes discomfort of the area. She is morbidly obese especially around the torso. 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 COUNT INCLUDES THE [facility] Medical History Recurrent incisional hernia Ventral hernia PONV (postoperative nausea and vomiting) COVID-19 vaccine series completed Arthritis Hypothyroid Diabetes History of COVID-19 Recurrent hernia High cholesterol Diabetic acidosis, type II Surgical History History of bunionectomy of both great toes H/O colonoscopy Hx of lumbar discectomy Hx of umbilical hernia repair (09/27/22) Family History Mother Breast cancer Glioblastoma multiforme of brain Diabetes Father Diabetes Heart disease Social History Household Members: Family Housing: House Are you a primary healthcare network consultant to a significant other at home: Yes (sister) Do you presently have visiting nurse or other home services: No Alcohol intake: never Patient Tobacco Use Status: Never used Tobacco Tobacco use type: Cigarette Advance Directives Date on File: 09/29/22 service: No Current occupational status: disabled Cognitive needs: No Hearing needs: No Vision needs: Yes (Rx glasses) Review of Systems Const Denies chills and Denies fever(s) Card Denies chest pain, Denies dyspnea and Denies dyspnea on exertion Resp Denies cough, Denies dyspnea and Denies dyspnea on exertion GI Denies hematochezia and Denies change in bowel habits Denies hematuria Musc Denies back pain and Denies limited range of motion Neuro Denies focal weakness and Denies convulsions Psych Denies depression and Denies mood swings Physical Exam Vital Signs: Last Vital Signs Pulse 86 03/18/25 09:38 BP 124/74 03/18/25 09:38 BMI result Body Mass Index 32.8 Const General: comfortable and no acute distress Orientation/consciousness: patient oriented x3 Neck Neck: Yes no lymphadenopathy Resp Auscultation: clear to auscultation bilaterally Cardio Rhythm: regular rhythm GI Other: Nonreducible supraumbilical hernia Palpation (GI): Soft to palpation, nontender and no guarding Neuro General: patient oriented x3 Assessment & Plan Assessment & Plan (1) Recurrent hernia: Code(s): K46.9 - Unspecified abdominal hernia without obstruction or gangrene Category: Medical Plan: She has this large recurrent supraumbilical hernia with a defect on CAT scan about almost 6 cm. She had been scheduled for repair last year but her hemoglobin A1c was very elevated. She says her last A1c was 9 in October,. I told her that she should follow up with the primary care physician to make sure that she is cleared for surgery in especially in view of her high A1c. She says she will see me in the office once she is cleared and is deemed to be ready for surgery. Coding Level of Care Code Est Pt Level 3 (95727) Diagnoses Recurrent hernia K46.9
[2025-03-18 09:38] VITALS: BP 124/74; PULSE 86; BMI 32.8
--- OUTSIDE RECORDS SUMMARY | 2025-03-18 09:57 | XMS_ITS | Patient Health Record ---
Author Organization [facility] Address [address] [place] [address] Care Team Providers Care Bulk Intake Worker Name Role Phone Irene Choudhary M.D. Primary Care Provider Unavail able Santy Estevez Unavailable [phone] Reason For Referral No Information Medications Medication [...] Problem Status W/U Status Risk Notes Problem [id number] Colon cancer screening (Z12.11) Active confirmed Problem [id number] Preprocedural examination (Z01.818) Active confirmed Plan Of Treatment Future Test Test Name Order Date COLONOSCOPY 12/29/2015 Insurance Providers Payer Name Payer Address Payer Phone Subscriber Number Group Number Insured Name Patient Relationship to Insured Coverage Start Date Coverage End Date [employer] Plan [address] [address] [place], [place] [id number] FRANSISCA KWOK Self - patient is the insured Medical (General) History Medical History History ICD Code Diet-controlled DM Denies [place],CVA,Lung disease,renal disease Hypothyroidism Surgical History Surgery Date(Month/Year) Back surgery--lower back Abdominal wall hernia repair
== END 2025-03-18 09:47 | disposition home or self-care (01) ==
LOC: HO.HGS 09:25
PROVIDERS: Visit Provider Surgery
DX: K46.9 Unspecified abdominal hernia without obstruction or gangrene (principal)
CPT/HCPCS: 99213

== ENCOUNTER → 2025-03-18 09:24 | Outpatient (BNVA) | payer OTHER, SELFPAY | PROVIDERS: Visit Provider Surgery | DX: K46.9 Unspecified abdominal hernia without obstruction or gangrene (principal) | CPT/HCPCS: 99212 ==

== ENCOUNTER 2025-03-31 09:54 | Outpatient (AMB) | payer OTHER, SELFPAY ==
--- NOTE | 2025-03-31 09:55 | A.OFFPC_ITS ---
Vital Signs 03/31/25 10:01 Height 5 ft Weight 75.296 kg BMI 32.4 BP 110/76 Respiration 16 Pulse 89 Pulse Source Pulse Oximeter Temp 97.3 F Temp Source Temporal Artery Scan Pulse Oximetry (%) 98 Oxygen Delivery Method Room Air Intake Visit Reasons: 3 Month F/U College Service Officer Required: No Accompanied by: Self / Same As Patient Allergies shellfish derived Allergy (Severe, Verified 03/31/25 09:57) severe throat itching nickel Allergy (Verified 03/31/25 09:57) Unknown Medication List - Last Reconciled 03/31/25 by BRISA Mccarthy acetaminophen 1,000 mg (2 x 500 mg) PO Q8H PRN calcium carbonate-vitamin D3 500 mg-10 mcg (400 unit) (Oyster Shell Calcium- Vitamin D3) 1 tab PO BID cholecalciferol (vitamin D3) 50 mcg PO DAILY docusate sodium 100 mg PO BID dulaglutide (Trulicity) 3 mg (0.5 mL) subcut QWEEK ibuprofen 600 mg PO Q6H PRN insulin glargine (Lantus Solostar U-100 Insulin) 35 units (0.35 mL) subcut QAM insulin lispro (Admelog SoloStar U-100 Insulin lispro) 1 sliding scale dose subcut USEASDIRECTD levothyroxine (Synthroid) 1 tab PO DAILY pravastatin 40 mg PO BEDTIME Tobacco use date assessed: 11/26/24 Dental Screening Dental Screen Date: 11/26/24 HPI HPI Comments History of Present Illness Details 59-year-old female presents to the [facility] today for follow-up. Type 2 diabetes-remains uncontrolled with hemoglobin A1c 9.8%. Due for repeat A1c. Has been using Trulicity 3 mg weekly with some improvement in glucose levels 150-250. She is compliant with diabetic diet. She is struggling with weight loss. Also using Lantus 35 units daily as well as Admelog but tells me that she does not always require the use of the Admelog due to glucose levels less than 150. Hyperlipidemia-on pravastatin 40 mg nightly. Due for lipid panel Obesity-BMI 32. She states she is having significant difficulty losing weight. Feels she is following a healthy diet but has not been able to exercise secondary to her hernia. Recurrent incisional hernia-large located in the periumbilical area. Following with Dr. Ellis and also here for preoperative clearance. No history of CELESTINA. No known chronic lung disease. No history of cardiovascular disease except for hyperlipidemia. No prior history of adverse reactions to anesthesia other than postoperative nausea and vomiting. Diabetes is uncontrolled at this time and she is insulin-dependent and is also taking GLP 1 as above Good functional status-no chest pain, dyspnea on exertion, lightheadedness, palpitations. Able to ascend and descend multiple flights of stairs and walk distances without any dyspnea. ROS: See HPI EXAM: Constitutional - Awake and Alert, No apparent distress Eyes - PERRLA, EOMI Cardiovascular - S1S2, RRR, No edema Respiratory - Normal lung expansion, Normal respiratory effort, No respiratory distress, CTA bilaterally Extremities - no calf tenderness bilaterally, no swelling Skin - Warm/Dry Neurological - Alert & oriented x3 Psychological - Appropriate affect [facility] Medical History (Updated 04/01/25 @ 17:54 by BRISA Mccarthy) Obesity Recurrent incisional hernia Ventral hernia PONV (postoperative nausea and vomiting) COVID-19 vaccine series completed Arthritis Hypothyroid Diabetes History of COVID-19 Recurrent hernia High cholesterol Diabetic acidosis, type II Surgical History History of bunionectomy of both great toes H/O colonoscopy Hx of lumbar discectomy Hx of umbilical hernia repair (09/27/22) Family History Mother Breast cancer Glioblastoma multiforme of brain Diabetes Father Diabetes Heart disease Social History Household Members: Family Housing: House Are you a primary direct care staffer to a significant other at home: Yes (sister) Do you presently have visiting nurse or other home services: No Alcohol intake: never Patient Tobacco Use Status: Never used Tobacco Tobacco use type: Cigarette Advance Directives Date on File: 09/29/22 service: No Current occupational status: disabled Cognitive needs: No Hearing needs: No Vision needs: Yes (Rx glasses) Questionnaire Thrive Questionnaire Date Thrive assessed: 11/26/24 GABY-7 AMB Questionnaire GABY-7 Date GABY - 7 assessed: 11/26/24 Source: Developed by Drs. Santy Acosta, Elodia ArriolaClyde and colleagues, with an educational john from [employer]. Physical exam (Primary Care) Vital Signs: Last Vital Signs Temp 97.3 F 03/31/25 10:01 Pulse 89 03/31/25 10:01 Resp 16 03/31/25 10:01 BP 110/76 03/31/25 10:01 Pulse Ox 98 03/31/25 10:01 Oxygen Delivery Method Room Air 03/31/25 10:01 BMI result Body Mass Index 32.4 Tobacco/Smoking Status: Tobacco use Status Tobacco use date assessed 11/26/24 03/31/25 09:56 Patient Tobacco Use Status Never used Tobacco 03/31/25 09:56 Tobacco use type Cigarette 03/31/25 09:56 Thrive Assessment: Date of Thrive Assessment Date Thrive assessed 11/26/24 03/31/25 09:56 Office Procedures EKG Details: NSR, rate 85. No significant ST/T-wave abnormality. No AV marty blocks [id number], Complete Coding Level of Care Code Est Pt Level 4 (04855) Complex EM visit Add On G2211 Diagnoses Pre-operative exam Z01.818 Type 2 diabetes mellitus E11.9 Hyperlipidemia E78.5 Recurrent incisional hernia K43.2 CPT Codes EKG - CPT: 47524-[id number], Complete ([id number]) Assessment & Plan Assessment & Plan (1) Pre-operative exam: Code(s): Z01.818 - Encounter for other preprocedural examination Category: Medical Plan: EKG reassuring. Good functional capacity No chronic lung disease, CELESTINA No known CVD except for hyperlipidemia Diabetes control improved with A1c 8.4%, goal <8.5% per ASA. Will require use of 16 units (1/2 dose) lantus morning of surgery, holding lispro. Advised to hold GLP-1 for at least 1 week prior to procedure RCRI score 1. No medical contraindication at time of examination at should preclude patient from undergoing procedure, at the discretion of surgeon with appropriate anesthesia precautions (2) Type 2 diabetes mellitus: Code(s): E11.9 - Type 2 diabetes mellitus without complications Category: Medical Plan: Hemoglobin A1c improved however remains uncontrolled. Discontinue Trulicity and changed to Mounjaro to help with glucose management as well as weight loss. Continue with diabetic diet. Continue with annual eye exams. Continue with insulin as directed. Hold gop 1 as directed preoperatively (3) Hyperlipidemia: Code(s): E78.5 - Hyperlipidemia, unspecified Category: Medical Plan: Continue statin (4) Recurrent incisional hernia: Code(s): K43.2 - Incisional hernia without obstruction or gangrene Category: Medical Plan: Follow-up with general surgery as scheduled Plan Follow-up in the office in 3 months with labs to be completed prior to visit Orders: Orders Basic Metabolic Panel 03/31/25 E11.9 - Type 2 diabetes mellitus without complications, E78.5 - Hyperlipidemia, unspecified, K43.2 - Incisional hernia without obstruction or gangrene Microalbumin, Random (w Creat) 03/31/25 E11.9 - Type 2 diabetes mellitus without complications, E78.5 - Hyperlipidemia, unspecified, K43.2 - Incisional hernia without obstruction or gangrene TSH reflex Free T4 03/31/25 E11.9 - Type 2 diabetes mellitus without complications, E78.5 - Hyperlipidemia, unspecified, K43.2 - Incisional hernia w ithout obstruction or gangrene AMB EKG-In Office 03/31/25 Z01.810 - Encounter for preprocedural cardiovascular examination Hemoglobin A1c 3 Months E11.9 - Type 2 diabetes mellitus without complications Lipid Panel 03/31/25 E11.9 - Type 2 diabetes mellitus without complications, E78.5 - Hyperlipidemia, unspecified, K43.2 - Incisional hernia without obstruction or gangrene Liver Panel 03/31/25 E11.9 - Type 2 diabetes mellitus without complications, E78.5 - Hyperlipidemia, unspecified, K43.2 - Incisional hernia without obstruction or gangrene Hemoglobin A1c 03/31/25 E11.9 - Type 2 diabetes mellitus without complications, E78.5 - Hyperlipidemia, unspecified, K43.2 - Incisional hernia without obstruction or gangrene Medications: Discontinued dulaglutide (Trulicity) Discontinued Reason: Doctor's Order 3 mg (0.5 mL) subcut QWEEK 2 mL 3RF
[2025-03-31 10:01] VITALS: BP 110/76; PULSE 89; RESP 16; TEMP 36.3; O2SAT 98; BMI 32.4
--- OUTSIDE RECORDS SUMMARY | 2025-03-31 11:31 | XMS_ITS | Patient Health Record ---
Author Organization [facility] Address [address] [place] [address] Care Team Providers Care Real Estate Clerk Name Role Phone Irene Choudhary M.D. Primary Care Provider Unavail able Santy Estevez Unavailable [phone] Reason For Referral No Information Medications Medication [...] Problem Status W/U Status Risk Notes Problem [id number] Colon cancer screening (Z12.11) Active confirmed Problem [id number] Preprocedural examination (Z01.818) Active confirmed Plan Of Treatment Future Test Test Name Order Date COLONOSCOPY 12/29/2015 Insurance Providers Payer Name Payer Address Payer Phone Subscriber Number Group Number Insured Name Patient Relationship to Insured Coverage Start Date Coverage End Date [employer] Plan [address] [address] [place], [place] [id number] FRANSISCA KWOK Self - patient is the insured Medical (General) History Medical History History ICD Code Diet-controlled DM Denies [place],CVA,Lung disease,renal disease Hypothyroidism Surgical History Surgery Date(Month/Year) Back surgery--lower back Abdominal wall hernia repair
== END 2025-03-31 10:47 | disposition home or self-care (01) ==
LOC: HO.HMCHD 09:54
PROVIDERS: PCP Internal Medicine; Visit Provider Physician Assistant
DX: Z01.818 Encounter for other preprocedural examination (principal); E11.9 Type 2 diabetes mellitus without complications; E78.5 Hyperlipidemia, unspecified; K43.2 Incisional hernia without obstruction or gangrene

== ENCOUNTER → 2025-03-31 09:54 | Outpatient (BNVA) | payer OTHER, SELFPAY | PROVIDERS: PCP Internal Medicine; Visit Provider Physician Assistant | DX: Z01.818 Encounter for other preprocedural examination (principal); E11.9 Type 2 diabetes mellitus without complications; E78.5 Hyperlipidemia, unspecified; K43.2 Incisional hernia without obstruction or gangrene; Z79.899 Other long term (current) drug therapy | CPT/HCPCS: 93005; 99212 ==

== ENCOUNTER 2025-03-31 11:12 | Outpatient (REF) | payer OTHER, SELFPAY ==
[2025-03-31 13:06] LABS: Hemoglobin A1C 244.5311 umol/L; Total Hemoglobin (HGBA1C) 3592.9745 umol/L
[2025-03-31 13:51] LABS: Alanine Aminotransferase 17 U/L (0-31); Albumin Level 4.0 g/dL (3.5-5.0); Alkaline Phosphatase 84 U/L (39-117); Anion Gap 12 (12-20); Aspartate Amino Transferase 24 U/L (5-31); Blood Urea Nitrogen 9 mg/dL (9-16); Calcium 9.1 mg/dL (8.4-10.2); Carbon Dioxide 28 mmol/L (22-29); Chloride 107 mmol/L (96-108); Cholesterol 181 mg/dL (<200); Estimated Glomerular Filt Rate > 60; HDL Cholesterol 31 mg/dL (>40); Potassium 4.1 mmol/L (3.3-5.1); Sodium 143 mmol/L (135-145); Total Protein 7.6 g/dL (6.5-8.0); Triglycerides 227 mg/dL (<150)
== END 2025-03-31 11:13 | disposition home or self-care (01) ==
LOC: HO.10HDL 11:12
PROVIDERS: Visit Provider Physician Assistant
DX: E11.9 Type 2 diabetes mellitus without complications (principal); E78.5 Hyperlipidemia, unspecified; K43.2 Incisional hernia without obstruction or gangrene
CPT/HCPCS: 36415; 80048; 80061; 80076; 82043; 82570; 83036; 84443

== ENCOUNTER 2025-06-01 14:45 | Emergency (ER) | payer OTHER, SELFPAY ==
--- NOTE | ~2025-06-01 | XR_ITS ---
CLINICAL HISTORY: pain. fracture 3 views right foot Comparison: 10/18/2022 Findings: No acute fractures or dislocations. Stable remote deformity of the 1st metatarsal bone. No joint effusion. No significant arthritic change. No radiopaque foreign body. Impression: 1. No acute fracture or dislocation. This document has been electronically signed by: Hoang Al MD on 06/01/2025 15:51:12
--- NOTE | ~2025-06-01 | XR_ITS ---
CLINICAL HISTORY: pain. object fell on foot 4 views right left ankle Comparison: None Findings: No fractures or dislocations. No joint effusion. No significant arthritic change. No radiopaque foreign body. Impression: 1. Unremarkable right ankle This document has been electronically signed by: Hoang Al MD on 06/01/2025 15:51:30
[2025-06-01 14:56] VITALS: BP 135/67; PULSE 88; RESP 18; TEMP 36.6; O2SAT 98; BMI 31.2
--- NOTE | 2025-06-01 14:59 | ED_ITS ---
HPI - General Adult General Chief complaint: Extremity Injury, Lower Stated complaint: R foot sharp pain Time Seen by Provider: 06/01/25 15:53 Source: patient Mode of arrival: ambulatory Limitations: no limitations History of Present Illness ED Provider: Pat Aranda PA-C HPI narrative: Patient is a 59 year old assigned female at with a history of DM, HLD, and recurrent hernia presenting to the emergency department today with right 1st toe pain. Patient states that almost 3 weeks ago she dropped a cafe aide machine onto her right foot. Patient states that she has had pain ever since but thought it would get better. Patient denies any other symptoms. Patient denies any other complaints at this time. Related Data Previous Rx's ?Medication ?Instructions ?Recorded ibuprofen 600 mg tablet 600 mg PO Q6H PRN pain #30 t abs 09/27/22 acetaminophen 500 mg capsule 1,000 mg (2 x 500 mg) PO Q8H PRN 11/21/24 fever or pain #14 caps calcium 500 mg (as 1 tab PO BID #180 tabs 11/27 carbonate)-vitamin D3 10 mcg (400 unit) tablet (Oyster Shell Calcium-Vitamin D3) insulin glargine 100 unit/mL (3 35 unit (0.35 mL) subc ut QAM #15 mL 12/10/24 mL) subcutaneous pen (Lantus Solostar U-100 Insulin) pravastatin 40 mg tablet 40 mg PO BEDTIME #90 tabs docusate sodium 100 mg capsule 100 mg PO BID #60 caps 03/31/25 tirzepatide 5 mg/0.5 mL 5 mg (0.5 mL) subcut QWEEK # 6 mL 04/01/25 subcutaneous pen injector (Mounjaro) methocarbamol 750 mg tablet 750 mg PO TID PRN muscle s pasm #90 04/11/25 tabs levothyroxine 75 mcg tablet 75 mcg PO DAILY 90 days #9 0 tabs 04/14/25 (Synthroid) insulin lispro 100 unit/mL 1 sliding scale dose subcut 04/22/25 subcutaneous pen (Admelog SoloStar TIDWMEAL #15 mL U-100 Insulin lispro) cholecalciferol (vitamin D3) 50 50 mcg PO DAILY 90 day s #90 caps 05/29/25 mcg (2,000 unit) capsule Allergies Allergy/AdvReac Type Severity Reaction Status Date / Time shellfish derived Allergy Severe severe Verified 06/01/25 14:58 throat itching nickel Allergy Unknown Verified 06/01/25 14:58 Review of Systems Constitutional: Constitutional: Reports as per HPI Eyes: Eyes: Reports as per HPI ENT: Reports as per HPI Cardiovascular: Cardiovascular: Reports as per HPI Respiratory: Respiratory: Reports as per HPI Gastrointestinal: Gastrointestinal: Reports as per HPI Genitourinary: Genitourinary: Reports as per HPI Musculoskeletal: Musculoskeletal: Reports as per HPI Integumentary/Breasts: Skin/Breast: Reports as per HPI Neurologic: Reports as per HPI Psychiatric: Psychiatric: Reports as per HPI Endocrine: Endocrine: Reports as per HPI Hematologic/Lymphatic: Hematologic/Lymphatic: Reports as per HPI Allergic/Immunologic: Allergic/Immunologic: Reports as per HPI [facility] Past Medical History Attestation statement: The following information was validated with the patient. Source: old records reviewed and nursing notes reviewed Medical History Obesity Recurrent incisional hernia Ventral hernia PONV (postoperative nausea and vomiting) COVID-19 vaccine series completed Arthritis Hypothyroid Diabetes History of COVID-19 Recurrent hernia High cholesterol Diabetic acidosis, type II Surgical History History of bunionectomy of both great toes H/O colonoscopy Hx of lumbar discectomy Hx of umbilical hernia repair (09/27/22) Family History Family History Mother Breast cancer Glioblastoma multiforme of brain Diabetes Father Diabetes Heart disease Social History Social History Household Members: Family Housing: House Are you a primary care navigator to a significant other at home: Yes (sister) Do you presently have visiting nurse or other home services: No Alcohol intake: never Patient Tobacco Use Status: Never used Tobacco Tobacco use type: Cigarette Smoked in Last 30 Days: No Use of substances other than those prescribed or required for medical reasons: No Advance Directives: Yes Advance Directives on File: Yes Advance Directives Date on File: 09/29/22 Do you have a plan to hurt others: No Plan Patient : No service: No Current occupational status: disabled Cognitive needs: No Hearing needs: No Vision needs: Yes (Rx glasses) Physical Exam ED Vital Signs: Vital Signs - 24 hr 06/01/25 14:56 06/01/25 16:03 Temperature 98 F 98 F Pulse Rate 88 78 Respiratory Rate 18 14 Blood Pressure 135/67 128/66 Pulse Oximetry 98 97 Oxygen Delivery Method Room Air Room Air BMI result Body Mass Index 31.2 Const General: cooperative, no acute distress, alert and awake Nutritional Appearance: well nourished Orientation/consciousness: patient oriented x3 HENMT Head: Yes normal to inspection and Yes atraumatic Ears: hearing grossly normal bilaterally and external ears normal General nose exam: Normal external nose present, no nasal discharge noted and no epistaxis Face and sinus: Yes normal facial exam, No abrasion and No laceration Mouth: Normal oral and palatal mucosa present, no drooling and no muffled voice Eyes General: appearance normal, both eyes and all related structures Periorbital: periorbital findings normal Eyelids: Yes eyelids normal Conjunctivae: conjunctivae normal Pupils: Equal, round and reactive pupils present EOM: EOMs intact bilaterally Neck Neck: Yes normal visual inspection and Yes full ROM Resp Effort & Inspection: normal respiratory effort and able to speak in complete sentences Neuro General: patient oriented x3, moves all extremities and CN's II-XI intact bilaterally Cranial nerves: Yes Equal, round and reactive pupils present Cognition (Neuro): normal cognition Extrem Other: pain with palpation of the right dorsal foot - specifically over the right 1st metatarsal General: Yes normal to inspection, Yes full ROM and Yes capillary refill normal Psych Appearance: grossly normal Mental Status: mental status grossly normal Affect: normal affect Attitude: cooperative Thought process: Normal thought process present Thought content: Normal thought content present Insight: Good insight present (Psych) Course Course Course Narrative: RME: 59-year-old female female presents to ED for right foot pain for about 2 weeks. Patient states heavy object fell on her foot and she never had x-rays done. Positive for anterior for tenderness on palpation without any swelling, redness, obvious deformity. X-rays ordered Procedures Orthopedic Splinting/Casting R great toe fracture: Side: right Lower Extremity Injury Location: foot Lower Extremity Immobilizer: boot orthosis Medical Decision Making Medical Decision Making MDM Narrative: Patient is a 59 year old assigned female at with a history of DM, HLD, and recurrent hernia presenting to the emergency department today with right 1st toe pain. Patient's physical exam was as noted in the physical exam portion of this note. Patient's right foot and ankle x-ray showed no acute process. When I reviewed the patient's right foot imaging - there is an evident poorly healed right 1st metatarsal fracture with malalignment. I am suspicious the patient broke her 1st metatarsal and is having persistent pain secondary to the poor healing of it. Patient's right foot was placed in a short walking boot, without incident. Patient's PMS was intact prior to and after boot placement. I explained my physical exam findings as well as all test results to the patient. I answered all questions asked by the patient. I stressed the importance of the patient taking her medication as directed (either prescribed or as the over the counter packaging recommends). I stressed the importance of the patient following up with her primary care provider and given the poor healing of a previous 1st metatarsal fracture - the podiatry team. I stressed the importance of the patient returning to the emergency department immediately if her symptoms were to worsen or if she were to develop any dizziness, shortness of breath, difficulty breathing, chest pain, blurry vision, loss of vision, nausea, vomiting, abdominal pain, fever, chills, back pain, or any other complaints. Patient verbalized agreement and understanding with this treatment plan and discharge. Differential Diagnosis Differential Diagnoses: The differential diagnosis associated with the presentation includes Poorly healed 1st metatarsal fracture 1st metatarsal fracture Contusion Admission/Observation Consideration of admission/observation: Escalation of care including admission/observation considered Patient would have been admitted to the hospital had her work up had any findings where hospital admission was appropriate and her clinical presentation warranted hospital admission. Independent Interpretation I performed an independent interpretation of an: Plain X-Ray Interpretation: My interpretation of these x-rays are in the MDM Rationale portion of this note. The radiologist's impression of these imaging studies are below. Reason for Exam: pain. fracture CLINICAL HISTORY: pain. fracture 3 views right foot Comparison: 10/18/2022 Findings: No acute fractures or dislocations. Stable remote deformity of the 1st metatarsal bone. No joint effusion. No significant arthritic change. No radiopaque foreign body. Impression: 1. No acute fracture or dislocation. This document has been electronically signed by: Hoang Al MD on 15:51:12 Dictated By: Hoang Al MD Signed By: Electronically signed by Hoang Al MD 06/01/25 1551 Reason for Exam: pain. object fell on foot CLINICAL HISTORY: pain. object fell on foot 4 views right left ankle Comparison: None Findings: No fractures or dislocations. No joint effusion. No significant arthritic change. No radiopaque foreign body. Impression: 1. Unremarkable right ankle This document has been electronically signed by: Hoang Al MD on 06/01/2025 15:51:30 Dictated By: Hoang Al MD Signed By: Electronically signed by Hoang Al MD 06/01/25 1552 Radiology Impression Discussion of test interpretation with radiology: I have reviewed the radiologist's reading. Discharge Plan Discharge Clinical Impression: Fracture of toe with routine healing Qualifiers: Toe: great toe Fracture type: closed Phalanx: proximal Fracture alignment: displaced Laterality: right Qualified Code(s): S92.411D - Displaced fracture of proximal phalanx of right great toe, subsequent encounter for fracture with routine healing Patient Disposition: Home, Self-Care Instructions: Toe Fracture (ED), Walking Boot (ED) Additional Instructions: Your x-ray showed evidence of a right 1st toe fracture that has already healed - but has healed poorly / misaligned. I believe this is what is causing your pain. You have been placed in a walking boot - please wear this as needed for comfort and follow up with the podiatry team. IF you are prescribed home medications and/or you are taking over the counter medications at home - it is very important you continue to do so as prescribed / directed unless told otherwise. Follow up with your primary care provider. Return to the emergency department immediately if your symptoms worsen or if you develop any numbness, tingling, dizziness, shortness of breath, difficulty breathing, chest pain, blurry vision, loss of vision, nausea, vomiting, abdominal pain, fever, chills, back pain, or any other complaints. Please see the information below about our Patient Portal. If you are not yet enrolled in the [facility] Patient Portal, you will receive an enrollment email invitation following your visit to any [facility] setting. You may also self-enroll in the Patient Portal by visiting our website: [email or web address] The following information is required to access the Patient Portal: - Your [facility] Medical Record Number - Your personal home email address (must match what is in your electronic medical record, Registration staff can assist with this) - Name - Date of Capabilities of the Patient Portal: - Message some providers - View upcoming appointments - Access your health summary, medical history, and visit history - View current conditions and allergies - View procedure and lab results - View your medications, including guidelines, side effects, and precautions - Complete pre-appointment questionnaires requested by your provider - Ready summary reports of your office visits and procedures To access the Patient Portal Mobile [employer], follow these directions: - Search Tipbit in the [employer] Store or Google Savor Store - Download the [employer] - Search for [facility] - Enter your login/password Prescriptions: No Action calcium carbonate-vitamin D3 [Oyster Shell Calcium-Vit D3] 500 mg-10 mcg (400 unit) tablet 1 tab PO BID Qty: 180 1RF insulin glargine [Lantus Solostar U-100 Insulin] 100 unit/mL (3 mL) insulin pen 35 unit subcut QAM Qty: 15 1RF Rx Instructions: 35 units correct dose docusate sodium 100 mg capsule 100 mg PO BID Qty: 60 3RF Mounjaro 5 mg/0.5 mL pen injector 5 mg subcut QWEEK Qty: 6 0RF methocarbamol 750 mg tablet 750 mg PO TID PRN (Reason: muscle spasm) Qty: 90 0RF levothyroxine [Synthroid] 75 mcg tablet 75 mcg PO DAILY 90 Days Qty: 90 0RF insulin lispro [Admelog SoloStar U-100 Insulin] 100 unit/mL insulin pen 1 sliding scale dose subcut TIDWMEAL Qty: 15 5RF Rx Instructions: BG <111 0 units, 111-150 - 0 units, 151-200 2 units, 201-250 4 units, 251-300 6 units, 301-350 8 units, >350 10 units, call provider. Max dose 30 units daily cholecalciferol (vitamin D3) 50 mcg (2,000 unit) capsule 50 mcg PO DAILY 90 Days Qty: 90 1RF ibuprofen 600 mg tablet 600 mg PO Q6H PRN (Reason: pain) Qty: 30 0RF acetaminophen 500 mg capsule 1,000 mg PO Q8H PRN (Reason: fever or pain) Qty: 14 0RF pravastatin 40 mg tablet 40 mg PO BEDTIME Qty: 90 1RF Referrals: [facility] [Provider Group, Podiatry] Referral Note: Call to establish and follow up with the podiatry team for your incorrectly aligned / healed right great toe fracture. Irene Choudhary MD [Primary Care Provider, Endocrinology] Discharge Date/Time: 06/01/25 16:28 Print Language: Haitian
--- OUTSIDE RECORDS SUMMARY | 2025-06-01 15:55 | XMS_ITS | Patient Health Record ---
Author Organization [facility] Address [address] [place] [address] Care Team Providers Care Medical Technologist Microbiology Name Role Phone Irene Choudhary M.D. Primary Care Provider Unavail able Santy Estevez Unavailable [phone] Reason For Referral No Information Medications Medication SIG (Take, Route, Fr equency, Duration) Notes Start Date End Date Status Synthroid 75 MCG 1 tablet Orally Once a day Active Dulcolax 5 MG as directed Orally a s directed; Duration: 1 days 04/07/2016 Active MiraLax 1 as directed Orally a s directed; Duration: 1 days 04/07/2016 Active Problems Problem Type SNOMED Code ICD Code Onset Dates Problem Status W/U Status Risk Notes Problem Colon cancer screening (195596063) Colon cancer screening (Z12.11) Active confirmed Problem Preprocedural examination (365219978240447) Preprocedural examination (Z01.818) Active confirmed Plan Of Treatment Future Test Test Name Order Date COLONOSCOPY 12/29/2015 Insurance Providers Payer Name Payer Address Payer Phone Subscriber Number Group Number Insured Name Patient Relationship to Insured Coverage Start Date Coverage End Date [employer] Plan [address] [address] [place], [place] [id number] FRANSISCA [id number] Self - patient is the insured Medical (General) History Medical History History ICD Code Diet-controlled DM Denies SC,CVA,Lung disease,renal disease Hypothyroidism Surgical History Surgery Date(Month/Year) Back surgery--lower back Abdominal wall hernia repair
[2025-06-01 16:03] VITALS: BP 128/66; PULSE 78; RESP 14; TEMP 36.6; O2SAT 97
== END 2025-06-01 16:28 | disposition home or self-care (01) ==
PROVIDERS: Emergency Provider Emergency Medicine Emergency Medical Services; PCP Internal Medicine
DX: M89.8X7 Other specified disorders of bone, ankle and foot (principal); Z79.899 Other long term (current) drug therapy
CPT/HCPCS: 73610; 73630; 99283; 99284

== ENCOUNTER → 2025-06-01 14:56 | Outpatient (BNV) | payer OTHER, SELFPAY | PROVIDERS: Emergency Provider Emergency Medicine Emergency Medical Services; PCP Internal Medicine; Visit Provider Radiology Diagnostic Radiology | DX: M25.571 Pain in right ankle and joints of right foot (principal); M79.671 Pain in right foot; W20.8XXA Other cause of strike by thrown, projected or falling object, initial encounter | CPT/HCPCS: 73610; 73630 ==

== ENCOUNTER 2025-06-04 10:58 | Outpatient (AMB) | payer OTHER, SELFPAY ==
[2025-06-04 11:09] VITALS: BMI 31.4
--- NOTE | 2025-06-04 11:09 | A.OFFVIS_ITS ---
Vital Signs 06/04/25 11:09 Height 5 ft Weight 161 lb BMI 31.4 Intake Visit Reasons: Rt foot pain x2 wks, Intake Note: Yessi is a 59 year old female who presents today as a new patient for right foot pain in the last 3 weeks. Patient reports she dropped a kitchen aid machine on her right hallux and caused a fracture. She was seen at [facility] on 06/01/25 where she was provided with a post-op shoe and X-rays where taken. Patient mentions she takes Ibuprofen as needed to help manage her pain symptoms. Allergies shellfish derived Allergy (Severe, Verified 06/04/25 11:10) severe throat itching nickel Allergy (Verified 06/04/25 11:10) Unknown HPI Comments Details: The patient is a 59-year-old female with a past medical history as seen below presenting with Right foot and ankle pain. Approximately three weeks ago, the patient dropped a KitchenAid machine on her foot, resulting in pain localized to the hallux. Initially, there was no significant swelling or bruising, and the patient continued her daily activities. The patient reports a bump on the right hallux that was not present before the injury. patient states she went to the ED due to experiencing pain and had x-rays taken. Patient was given a surgical shoe and states she takes Tylenol Or ibuprofen as needed for pain. The patient denies taking medication regularly for pain, as it subsides when she is not standing. She denies any other pedal concerns. 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 Contusion of right great toe without damage to nail, initial encounter Right foot injury Right foot pain Obesity Recurrent incisional hernia Ventral hernia PONV (postoperative nausea and vomiting) COVID-19 vaccine series completed Arthritis Hypothyroid Diabetes History of COVID-19 Recurrent hernia High cholesterol Diabetic acidosis, type II Surgical History History of bunionectomy of both great toes H/O colonoscopy Hx of lumbar discectomy Hx of umbilical hernia repair (09/27/22) Family History Mother Breast cancer Glioblastoma multiforme of brain Diabetes Father Diabetes Heart disease Social History Household Members: Family Housing: House Are you a primary interior plant caretaker to a significant other at home: Yes (sister) Do you presently have visiting nurse or other home services: No Alcohol intake: never Patient Tobacco Use Status: Never used Tobacco Tobacco use type: Cigarette Advance Directives Date on File: 09/29/22 service: No Current occupational status: disabled Cognitive needs: No Hearing needs: No Vision needs: Yes (Rx glasses) Review of Systems Const Details: -Musculoskeletal: Reports right hallux pain. All systems reviewed & are unremarkable except as noted in HPI and below Physical Exam Vital Signs: BMI result Body Mass Index 31.4 Extrem Other: Right lower extremity focused physical exam: Derm: No open lesions abrasions or wounds noted. No ecchymosis or discoloration noted. No clinical signs of infection noted. No maceration or hyperkeratotic areas noted. Vascular: DP/PT pulses palpable. Capillary refill time less than 3 seconds. Temperature gradient warm to warm. Pedal hair absent. No varicosities noted. Mild edema noted to the medial aspect of the foot. Neuro: Protective sensations grossly intact. MSK: Pain on palpation to the medial aspect of the proximal phalanx of the hallux with a palpable mass measuring approximately 0.1 x 0.1 cm. No crepitus noted. No pain on palpation to the 1st metatarsal. Pain with range of motion of the 1st IPJ. Range of motion of the forefoot within normal limits except for the hallux. Range of motion of the hindfoot and ankle within normal limits. No pain on palpation to the hindfoot or ankle. Mildly antalgic gait noted with the use of a postop shoe , unassisted. Results Reviewed Results Reviewed: Podiatry read of right foot x-ray ( 06/01/2025): Abnormal healing from previous bunion surgery noted plantar displacement of the 1st met head. No acute fractures or dislocations noted. Reduced joint space narrowing noted to the 1st MPJ. right foot x-ray ( 06/01/2025): Findings: No acute fractures or dislocations. Stable remote deformity of the 1st metatarsal bone. No joint effusion. No significant arthritic change. No radiopaque foreign body. Impression: 1. No acute fracture or dislocation. Podiatry read of right ankle x-ray ( 06/01/2025): No acute fractures or dislocations noted. Joint spacing WNL. right ankle x-ray ( 06/01/2025): Findings: No fractures or dislocations. No joint effusion. No significant arthritic change. No radiopaque foreign body. Impression: 1. 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 I discussed with the patient that the x-ray showed no acute fracture, but there is a malunion of her previous bunion surgery (had surgery when she was 18 years old). We talked about managing the pain with ice, elevation, and supportive footwear. I advised her to monitor her symptoms and return if the pain persists or worsens. We also discussed that surgery is not currently indicated at this time, since there is no fracture present, but if the pain becomes unmanageable, further evaluation may be necessary. - Adhere to RICE protocol. - Advise wearing a surgical shoe or supportive sneakers to prevent further pain during prolonged standing and activity. - Monitor symptoms and return for evaluation if pain persists or worsens. - May take Tylenol or Ibuprofen prn for pain. - Avoid barefoot walking. RTC PRN. 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
--- OUTSIDE RECORDS SUMMARY | 2025-06-04 13:31 | XMS_ITS | Patient Health Record ---
Author Organization [facility] Address [address] [place] [address] Care Team Providers Care Work Environment Safety Inspector Name Role Phone Irene Choudhary M.D. Primary Care Provider Unavail able Santy Estevez Unavailable [phone] Reason For Referral No Information Medications Medication [...] Status Risk Notes Problem Colon cancer screening (789755696) Colon cancer screening (Z12.11) Active confirmed Problem Preprocedural examination (720673200950836) Preprocedural examination (Z01.818) Active confirmed Plan Of Treatment Future Test Test Name Order Date COLONOSCOPY 12/29/2015 Insurance Providers Payer Name Payer Address Payer Phone Subscriber Number Group Number Insured Name Patient Relationship to Insured Coverage Start Date Coverage End Date [employer] Plan [address] [address] [place], [place] [id number] Self - patient is the insured Medical (General) History Medical History History ICD Code Diet-controlled DM Denies CT,CVA,Lung disease,renal disease Hypothyroidism Surgical History Surgery Date(Month/Year) Back surgery--lower back Abdominal wall hernia repair
== END 2025-06-04 11:27 | disposition home or self-care (01) ==
LOC: HO.HPODS 10:59
PROVIDERS: PCP Internal Medicine; Visit Provider Student in an Organized Health Care Education/Training Program
DX: M79.671 Pain in right foot (principal); S99.921A Unspecified injury of right foot, initial encounter; S90.111A Contusion of right great toe without damage to nail, initial encounter; M96.89 Other intraoperative and postprocedural complications and disorders of the musculoskeletal system
CPT/HCPCS: 99204

== ENCOUNTER → 2025-06-04 10:58 | Outpatient (BNVA) | payer OTHER, SELFPAY | PROVIDERS: PCP Internal Medicine; Visit Provider Student in an Organized Health Care Education/Training Program | DX: S90.111A Contusion of right great toe without damage to nail, initial encounter (principal); S99.921A Unspecified injury of right foot, initial encounter; M96.89 Other intraoperative and postprocedural complications and disorders of the musculoskeletal system; W20.8XXA Other cause of strike by thrown, projected or falling object, initial encounter; Y92.9 Unspecified place or not applicable; Y93.9 Activity, unspecified | CPT/HCPCS: 99202 ==

== ENCOUNTER 2025-06-10 10:27 | Outpatient (REF) | payer OTHER, SELFPAY ==
--- NOTE | ~2025-06-10 | XR_ITS ---
EXAMINATION: XR ABDOMEN COMPLETE CLINICAL INDICATION: R10.9 - Unspecified abdominal pain COMPARISON: None available. TECHNIQUE: Upright and supine views of the abdomen. FINDINGS: Gas is seen scattered through small and large bowel without clear distention or dilation. There are no abnormal air-fluid levels on the upright images. Numerous calcific densities in the pelvis are consistent with phleboliths. There is minimal degenerative change with marginal osteophyte is in the right greater than left SI joints. XR/XR abdomen min 2V IMPRESSION: Nonspecific bowel gas pattern with scattered small and large bowel gas. Electronically signed by: Christos Collins MD 06/10/2025 11:12 AM [facility]
== END 2025-06-10 10:28 | disposition home or self-care (01) ==
LOC: HO.XRAY 10:27
PROVIDERS: PCP Physician Assistant; Visit Provider Physician Assistant Medical
DX: K42.9 Umbilical hernia without obstruction or gangrene (principal); R19.7 Diarrhea, unspecified; R11.0 Nausea; R42 Dizziness and giddiness; R10.84 Generalized abdominal pain; K64.9 Unspecified hemorrhoids
CPT/HCPCS: 74019

== ENCOUNTER 2025-06-10 10:27 | Outpatient (AMB) | payer OTHER, SELFPAY ==
--- NOTE | 2025-06-10 10:33 | MHC.PC.OV ---
Vital Signs 06/10/25 10:40 Height 4 ft 11.72 in Weight 160 lb BMI 31.5 BP 110/68 Blood Pressure Location Lt brachial Position Sitting Respiration 20 Pulse 79 Pulse Source Pulse Oximeter Temp 97.6 F Temp Source Temporal Artery Scan Pulse Oximetry (%) 98 Oxygen Delivery Method Room Air Intake Visit Reasons: Diarrhea Applique Cutter Required: No Accompanied by: Self / Same As Patient Allergies shellfish derived Allergy (Severe, Verified 06/10/25 10:33) severe throat itching nickel Allergy (Verified 06/10/25 10:33) Unknown Medication List - Last Reconciled 06/10/25 by BRISA Arevalo acetaminophen 1,000 mg (2 x 500 mg) PO Q8H PRN calcium carbonate-vitamin D3 500 mg-10 mcg (400 unit) (Oyster Shell Calcium-Vitamin D3) 1 tab PO BID cholecalciferol (vitamin D3) 50 mcg PO DAILY 90 days docusate sodium 100 mg PO BID ibuprofen 600 mg PO Q6H PRN insulin glargine (Lantus Solostar U-100 Insulin) 35 units (0.35 mL) subcut QAM insulin lispro (Admelog SoloStar U-100 Insulin lispro) 1 sliding scale dose subcut TIDWMEAL levothyroxine (Synthroid) 75 mcg PO DAILY 90 days loperamide 2 mg PO Q6H PRN ondansetron HCl 4 mg PO Q8H PRN pravastatin 40 mg PO BEDTIME tirzepatide (Mounjaro) 5 mg (0.5 mL) subcut QWEEK Tobacco use date assessed: 11/26/24 Dental Screening Dental Screen Date: 11/26/24 HPI HPI Comments History of Present Illness Details History of Present Illness The patient is a 60-year-old female here in an urgent visit presenting with diarrhea and abdominal pain. She reports the onset of diarrhea since Monday, which was initially continuous, then decreased to 3-4 times per day, stopped for a day, and then returned this morning. She describes the stool as being both watery and solid and denies any blood or mucus. Associated symptoms include severe cramping, audible gurgling, and pain that she feels is from stool moving through her large umbilical hernia. She also experienced nausea and dizziness this morning but has not vomited. The patient has a large umbilical hernia and is awaiting surgery; she reports this will be her seventh hernia repair. She takes docusate for this condition. Her medical history is also significant for type 2 diabetes, with a reported A1c of 04/03, for which she was started on Mounjaro 5 mg. She withheld her last dose of Mounjaro due to her current gastrointestinal symptoms and concerns about a potential need for emergency surgery. Patient was informed and verbally consented to the use of an ambient scribe for clinic note documentation during this visit. 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 Obesity PONV (postoperative nausea and vomiting) Recurrent hernia Recurrent incisional hernia Right foot injury Right foot pain Ventral hernia Surgical History H/O colonoscopy History of bunionectomy of both great toes Hx of lumbar discectomy Hx of umbilical hernia repair (09/27/22) Family History Mother Breast cancer Glioblastoma multiforme of brain Diabetes Father Diabetes Heart disease Social History Household Members: Family Housing: House Are you a primary technical healthcare consultant to a significant other at home: Yes (sister) Do you presently have visiting nurse or other home services: No Alcohol intake: never Patient Tobacco Use Status: Never used Tobacco Tobacco use type: Cigarette Advance Directives Date on File: 09/29/22 service: No Current occupational status: disabled Cognitive needs: No Hearing needs: No Vision needs: Yes (Rx glasses) Questionnaire Thrive Questionnaire Date Thrive assessed: 11/26/24 GABY-7 AMB Questionnaire GABY-7 Date GABY - 7 assessed: 11/26/24 Source: Developed by Drs. Santy Acosta, Elodia Arriola, Clyde Jean and colleagues, with an educational john from [employer]. Review of Systems Narrative Review of Systems - Constitutional: Reports feeling dizzy this morning. - Gastrointestinal: Reports diarrhea since Monday, severe abdominal cramping, abdominal pain, audible gurgling, and nausea this morning. - Denies vomiting, blood in stool, or mucus in stool. Physical exam (Primary Care) Vital Signs: Last Vital Signs Temp 97.6 F 06/10/25 10:40 Pulse 79 06/10/25 10:40 Resp 20 06/10/25 10:40 BP 110/68 06/10/25 10:40 Pulse Ox 98 06/10/25 10:40 Oxygen Delivery Method Room Air 06/10/25 10:40 BMI result Body Mass Index 31.5 GENERAL Well developed, obese, in no apparent distress HEENT Head-Normocephalic Neck- Supple, No lymphadenopathy, thyroid WNL RESPIRATORY Normal I:E, Clear to auscultation CARDIOVASCULAR Regular, rate and rhythm, No murmurs or rubs GASTROINTESTINAL Soft, normal BS, tender periumbilical, reducible umbilical hernia NEUROLOGICAL Gait normal PSYCHIATRIC Oriented to person, place and time Mood and affect WNL Appearance WNL Speech WNL Thought processes WNL Tobacco/Smoking Status: Tobacco use Status Tobacco use date assessed 11/26/24 06/10/25 10:35 Patient Tobacco Use Status Never used Tobacco 06/10/25 10:35 Tobacco use type Cigarette 06/10/25 10:35 Thrive Assessment: Date of Thrive Assessment Date Thrive assessed 11/26/24 06/10/25 10:35 Results Reviewed Results Reviewed: Ordering Physician: Shikha Munguia Date of Service: 06/10/25 Procedure(s): XR abdomen min 2V Accession Number(s): [id number] cc: Melodie Cruz; Shikha Munguia~ Reason for Exam: R10.9 - Unspecified abdominal pain EXAMINATION: XR ABDOMEN COMPLETE CLINICAL INDICATION: R10.9 - Unspecified abdominal pain COMPARISON: None available. TECHNIQUE: Upright and supine views of the abdomen. FINDINGS: Gas is seen scattered through small and large bowel without clear distention or dilation. There are no abnormal air-fluid levels on the upright images. Numerous calcific densities in the pelvis are consistent with phleboliths. There is minimal degenerative change with marginal osteophyte is in the right greater than left SI joints. XR/XR abdomen min 2V IMPRESSION: Nonspecific bowel gas pattern with scattered small and large bowel gas. Coding Level of Care Code Established Pt Est Pt Level 3 (98559) Patient Type Established Diagnoses Diarrhea of presumed infectious origin R19.7 Diarrhea type: presumed infectious Generalized abdominal pain R10.84 Abdominal location: generalized Recurrent hernia K46.9 Time Spent (min) 25 Comment Time spent on H&P, patient education, xray review and orders. Assessment & Plan Assessment & Plan (1) Diarrhea: Code(s): R19.7 - Diarrhea, unspecified Category: Medical Qualifiers: Diarrhea type: presumed infectious Qualified Code(s): R19.7 - Diarrhea, unspecified Plan: Will get xray and treat accordingly. (2) Abdominal pain: Code(s): R10.9 - Unspecified abdominal pain Category: Medical Qualifiers: Abdominal location: generalized Qualified Code(s): R10.84 - Generalized abdominal pain Plan: Will get xray and treat accordingly. Xray consistent with gastroenteritis. Will give Loperimide and Zofran. Patient to start with clear liquids and slowly progress diet. (3) Recurrent hernia: Code(s): K46.9 - Unspecified abdominal hernia without obstruction or gangrene Category: Medical Plan: Patient to follow up with Surgeon Plan Plan Patient was informed and verbally consented to the use of an ambient scribe for clinic note documentation during this visit. 1. Diarrhea The patient's diarrhea has a differential diagnosis of viral gastroenteritis versus overflow diarrhea from constipation or a partial bowel obstruction related to her large hernia. An abdominal X-ray is ordered to differentiate between these possibilities. If the X-ray indicates hard stool, medications will be prescribed to loosen the stool. If it suggests inflammation or a viral cause without blockage, loperamide will be given to slow the bowels. The patient is advised to adhere to a clear liquid diet in the interim. 2. Nausea The patient experienced significant nausea and dizziness this morning. An anti-nausea medication may be prescribed as needed once the primary cause of her symptoms is determined. 3. Umbilical Hernia The large, reducible umbilical hernia is a chronic issue, and the patient has seen a surgeon multiple times. The ordered abdominal X-ray will help assess for any acute complications related to the hernia, such as bowel obstruction. Patient to continue follow-up with her surgical team for definitive repair. Discussion Notes I explained to the patient that her symptoms could be due to a viral gastroenteritis or a constipation issue where only liquid stool is able to pass around a blockage, which is a concern given her hernia. I advised her that we need to perform an abdominal X-ray to determine the cause, as the treatment for each condition is different. I informed her that I would call her later today with the results and a plan, which would either be medication to loosen stool or medication to slow the diarrhea down. I also mentioned we would provide medication for her nausea as needed. Regarding diet, I instructed her to stick with clear liquids for now, such as water, juice, broth, and Jello. Patient Instructions - Go to the hospital across the street to have an abdominal X-ray done. - I will call you this afternoon with the results of the X-ray and to discuss the next steps for treatment. - For now, only consume clear liquids. This includes water, juice, broth, and Jello. - Once your symptoms improve, you can slowly start eating bland foods like rice and applesauce. Medications: New ondansetron HCl 4 mg PO Q8H PRN 10 tabs 0RF nausea and vomiting loperamide 2 mg PO Q6H PRN 10 caps 0RF loose stool
[2025-06-10 10:40] VITALS: BP 110/68; PULSE 79; RESP 20; TEMP 36.4; O2SAT 98; BMI 31.5
== END 2025-06-10 12:10 | disposition home or self-care (01) ==
LOC: HO.HMCHD 10:28
PROVIDERS: PCP Physician Assistant; Visit Provider Physician Assistant Medical
DX: R19.7 Diarrhea, unspecified (principal); R10.84 Generalized abdominal pain; K46.9 Unspecified abdominal hernia without obstruction or gangrene

== ENCOUNTER → 2025-06-10 10:59 | Outpatient (BNV) | payer OTHER, SELFPAY | PROVIDERS: PCP Physician Assistant; Visit Provider Radiology Diagnostic Radiology | DX: R10.9 Unspecified abdominal pain (principal) | CPT/HCPCS: 74019 ==

== ENCOUNTER 2025-06-30 10:00 | Outpatient (AMB) | payer OTHER, SELFPAY ==
[2025-06-30 10:16] VITALS: BP 118/72; PULSE 114; RESP 14; TEMP 36.4; O2SAT 98
--- NOTE | 2025-06-30 10:16 | A.OFFPC_ITS ---
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 Required: No Accompanied by: Self / Same As Patient Allergies shellfish derived Allergy (Severe, Verified 06/30/25 10:16) severe throat itching nickel Allergy (Verified 06/30/25 10:16) Unknown Medication List - Last Reconciled 06/30/25 by BRISA Mccarthy acetaminophen 1,000 mg (2 x 500 mg) PO Q8H PRN calcium carbonate-vitamin D3 500 mg-10 mcg (400 unit) (Oyster Shell Calcium- Vitamin D3) 1 tab PO BID cholecalciferol (vitamin D3) 50 mcg PO DAILY 90 days docusate sodium 100 mg PO BID 90 days ibuprofen 600 mg PO Q6H PRN insulin glargine (Lantus Solostar U-100 Insulin) 35 units (0.35 mL) subcut QAM insulin lispro (Admelog SoloStar U-100 Insulin lispro) 1 sliding scale dose subcut TIDWMEAL levothyroxine (Synthroid) 75 mcg PO DAILY 90 days loperamide 2 mg PO Q6H PRN ondansetron HCl 4 mg PO Q8H PRN pravastatin 40 mg PO BEDTIME 90 days tirzepatide (Mounjaro) 7.5 mg (0.5 mL) subcut QWEEK Tobacco use date assessed: 11/26/24 Dental Screening Dental Screen Date: 11/26/24 HPI HPI Comments History of Present Illness Details 59-year-old female presents with history of type 2 diabetes, hyperlipidemia, hypothyroidism, recurrent incisional hernia, obesity presenting to the office today for management of chronic conditions. Type 2 diabetes-remains uncontrolled with hemoglobin A1c 8.4%, but improved. Due for repeat A1c. Has been using Mounjaro 5 mg weekly, Lantus 35 units daily. Reports rare use of admitting of sliding scale due to much improved glucose levels. Reports glucose levels have been between 112-127 with occasional levels in the 150s if she has had sugar. She has been working hard improving her diet. Does occasionally cheat with soda and does have 1 tsp of sugar in her coffee daily. Hyperlipidemia-pravastatin 40 mg daily. Last LDL 105 Hypothyroidism-levothyroxine 75 mcg daily. Last TSH 2.01 Obesity-BMI 31.2. Has been working hard at weight loss. She has been more compliant with diabetic diet as above. No formal exercise, has significant pain related to incisional hernia. She is using Mounjaro and tolerating this well. She has lost about 14 lb since her last visit with me S Recurrent incisional hernia-large located in the periumbilical area. Following with Dr. Ellis. Was not approved for surgery due to uncontrolled type 2 diabetes Concerns: itchy ears with dry skin Health maintenance: mammo 12/15 due for colo- wants to do after procedure for incision hernia ROS: See HPI EXAM: Constitutional - Awake and Alert, No apparent distress Eyes - PERRLA, EOMI Ears-external ears normal. Mildly erythematous dry skin at the entrance of the canals. Canals clear. 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 Contusion of right great toe without damage to nail, initial encounter Right foot injury Right foot pain Obesity Recurrent incisional hernia Ventral hernia PONV (postoperative nausea and vomiting) COVID-19 vaccine series completed Arthritis Hypothyroid Diabetes History of COVID-19 Recurrent hernia High cholesterol Diabetic acidosis, type II Surgical History History of bunionectomy of both great toes H/O colonoscopy Hx of lumbar discectomy Hx of umbilical hernia repair (09/27/22) Family History Mother Breast cancer Glioblastoma multiforme of brain Diabetes Father Diabetes Heart disease Social History Household Members: Family Housing: House Are you a primary 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 How many drinks containing alcohol do you have on a typical day when you are drinking?: 1 or 2 Total Score: 0 GABY-7 AMB Questionnaire GABY-7 Date GABY - 7 assessed: 11/26/24 Source: Developed by Drs. Santy Acosta, Elodia Arriola, Clyde Jean and colleagues, with an educational john from [employer]. Physical exam (Primary Care) Vital Signs: Last Vital Signs Temp 97.5 F 06/30/25 10:16 Pulse 114 H 06/30/25 10:16 Resp 14 06/30/25 10:16 BP 118/72 06/30/25 10:16 Pulse Ox 98 06/30/25 10:16 Oxygen Delivery Method Room Air 06/30/25 10:16 Tobacco/Smoking Status: Tobacco use Status Tobacco use date assessed 11/26/24 06/30/25 10:22 Patient Tobacco Use Status Never used Tobacco 06/30/25 10:22 Tobacco use type Cigarette 06/30/25 10:22 Thrive Assessment: Date of Thrive Assessment Date Thrive assessed 11/26/24 06/30/25 10:22 Coding Level of Care Code Est Pt Level 4 (15635) Complex visit Add On G2211 Diagnoses Type 2 diabetes mellitus E11.9 Hyperlipidemia E78.5 Recurrent incisional hernia K43.2 Obesity E66.9 Assessment & Plan Assessment & Plan (1) Type 2 diabetes mellitus: Code(s): E11.9 - Type 2 diabetes mellitus without complications Category: Medical Plan: Hemoglobin A1c ordered. Glucose levels have greatly improved and home. Increase Mounjaro to 7.5 mg weekly. Continue Lantus. Monitor glucose levels closely prior to using sliding scale insulin. Continue with annual eye exams and foot exams. Continue with diabetic diet (2) Hyperlipidemia: Code(s): E78.5 - Hyperlipidemia, unspecified Category: Medical Plan: Continue statin. Lipid panel ordered (3) Recurrent incisional hernia: Code(s): K43.2 - Incisional hernia without obstruction or gangrene Category: Medical Plan: Follow-up with general surgery as scheduled. Pending pre op clearance with improved diabetic diet (4) Obesity: Code(s): E66.9 - Obesity, unspecified Category: Medical Plan: Commended on weight loss thus far and encouraged to continue with efforts. Compliance with diabetic diet. Increase protein, fruits, and vegetables. Limit refined sugar, simple carbs, highly processed foods. Reintroduce exercise as tolerated Plan Follow-up in the office in 3 months. Labs today in several days prior to next visit Orders: Orders Basic Metabolic Panel Today E11.9 - Type 2 diabetes mellitus without complications, E66.9 - Obesity, unspecified, E78.5 - Hyperlipidemia, unspecified Liver Panel Today E11.9 - Type 2 diabetes mellitus without complications, E66.9 - Obesity, unspecified, E78.5 - Hyperlipidemia, unspecified Hemoglobin A1c Today E11.9 - Type 2 diabetes mellitus without complications, E66.9 - Obesity, unspecified, E78.5 - Hyperlipidemia, unspecified TSH reflex Free T4 Today E11.9 - Type 2 diabetes mellitus without complications, E66.9 - Obesity, unspecified, E78.5 - Hyperlipidemia, unspecified Lipid Panel Today E11.9 - Type 2 diabetes mellitus without complications, E66.9 - Obesity, unspecified, E78.5 - Hyperlipidemia, unspecified Basic Metabolic Panel 3 Months E11.9 - Type 2 diabetes mellitus without complications Hemoglobin A1c 3 Months E11.9 - Type 2 diabetes mellitus without complications Medications: New tirzepatide (Mounjaro) 7.5 mg (0.5 mL) subcut QWEEK 2 mL 2RF E11.9 - Type 2 diabetes mellitus without complications, E66.9 - Obesity, unspecified blood sugar diagnostic (FreeStyle Lite Strips) Check glucose levels 4 times daily 200 ea 1RF hydrocortisone 1% (Anti-Itch (hydrocortisone)) 1 appl topical BID-QID PRN 28.4 grams 2RF skin irritation pen needle, diabetic (Aqinject Pen Needle) As directed 1,200 ea 0RF E11.9 - Type 2 diabetes mellitus without complications, Z79.4 - FPC (current) use of insulin fluticasone propionate 50 mcg/actuation (Allergy Relief (fluticasone)) administer into each nostril 1 spray intranasal Q12H 16 grams 3RF Discontinued tirzepatide (Mounjaro) Discontinued Reason: Doctor's Order 5 mg (0.5 mL) subcut QWEEK 6 mL 0RF E11.9 - Type 2 diabetes mellitus without complications, E66.9 - Obesity, unspecified Patient Instructions: Pediatrics- Eva Arriola PA-C
== END 2025-06-30 10:53 | disposition home or self-care (01) ==
LOC: HO.HMCHD 10:00
PROVIDERS: PCP Internal Medicine; Visit Provider Physician Assistant
DX: E11.9 Type 2 diabetes mellitus without complications (principal); E78.5 Hyperlipidemia, unspecified; K43.2 Incisional hernia without obstruction or gangrene; E66.9 Obesity, unspecified

== ENCOUNTER → 2025-06-30 10:00 | Outpatient (BNVA) | payer OTHER, SELFPAY | PROVIDERS: PCP Internal Medicine; Visit Provider Physician Assistant | DX: E11.9 Type 2 diabetes mellitus without complications (principal); E78.5 Hyperlipidemia, unspecified; K43.2 Incisional hernia without obstruction or gangrene; E66.9 Obesity, unspecified; Z79.4 Long term (current) use of insulin | CPT/HCPCS: 99212 ==

== ENCOUNTER 2025-06-30 10:54 | Outpatient (REF) | payer OTHER, SELFPAY ==
[2025-06-30 13:26] LABS: Alanine Aminotransferase 21 U/L (0-31); Albumin Level 4.3 g/dL (3.5-5.0); Alkaline Phosphatase 81 U/L (39-117); Anion Gap 9 (12-20); Aspartate Amino Transferase 25 U/L (5-31); Blood Urea Nitrogen 16 mg/dL (9-16); Calcium 9.6 mg/dL (8.4-10.2); Carbon Dioxide 27 mmol/L (22-29); Chloride 106 mmol/L (96-108); Cholesterol 207 mg/dL (<200); Estimated Glomerular Filt Rate > 60; HDL Cholesterol 34 mg/dL (>40); Potassium 4.2 mmol/L (3.3-5.1); Sodium 138 mmol/L (135-145); Total Protein 7.9 g/dL (6.5-8.0); Triglycerides 238 mg/dL (<150)
== END 2025-06-30 10:55 | disposition home or self-care (01) ==
LOC: HO.10HDL 10:54
PROVIDERS: Visit Provider Physician Assistant
DX: E11.9 Type 2 diabetes mellitus without complications (principal); E66.9 Obesity, unspecified; E78.5 Hyperlipidemia, unspecified
CPT/HCPCS: 36415; 80048; 80061; 80076; 83036; 84443